=== PATIENT | female | born 1955 | race Caucasian/White ===

== ENCOUNTER 2018-06-03 09:38 | Emergency (ER) | payer OTHER, SELFPAY ==
[2018-06-03 09:40] VITALS: BP 163/93; PULSE 105; RESP 18; TEMP 36.1; O2SAT 97; BMI 33.4
--- NOTE | 2018-06-03 09:56 | RAD_ITS ---
STUDY: X-RAY CHEST REASON FOR EXAM: Female, 62 years old. Mid chest pain TECHNIQUE: Single AP portable view of the chest. COMPARISON: November 26, 2016 FINDINGS: The lungs are clear and expanded. There is no demonstrated pleural abnormality. Normal size heart. Normal mediastinum and cliff. Normal visualized pulmonary arteries. Normal visualized aortic arch and descending thoracic aorta. Normal visualized thoracic spine. Normal visualized ribs, clavicles, and shoulders. There is no demonstrated abnormality of the visualized soft tissue structures of the upper abdomen. RAD/Chest 1 View (Portable) IMPRESSION: Normal x-ray examination of the chest. Electronically Signed: Oliver Patel DO at 10:24 EST Tel , Service support ,
--- NOTE | 2018-06-03 09:56 | EKG12_ITS ---
Test Reason : AB PAIN Blood Pressure : / mmHG Vent. Rate : 093 BPM Atrial Rate : 093 BPM P-R Int : 150 ms QRS Dur : 090 ms QT Int : 358 ms P-R-T Axes : 047 -18 003 degrees QTc Int : 445 ms Normal sinus rhythm Voltage criteria for left ventricular hypertrophy Cannot rule out Septal infarct , age undetermined Abnormal ECG Confirmed by OLIVE MEYERS ([id number]), offline editor MIGUELINA MAYO ([id number]) on 06/06/2018 2:06:01 PM Referred By: LATHA Confirmed By:OLIVE MEYERS
[2018-06-03] MEDS: Aspirin 81 MG TAB.CHEW 324 MG PO (10:26)
[2018-06-03 10:28] LABS: Absolute Lymphocyte Count 1.16 X10^3/ul (0.83-4.51); Absolute Neutrophil Count 3.2 X10^3/uL (2.0-7.7); Basophil# 0.02 X10^3/uL; Basophil% 0.4 % (0-1); Eosinophil# 0.17 X10^3/uL; Eosinophils% 3.4 % (0-5); Hematocrit 38.8 % (37-47); Hemoglobin 12.8 g/dl (12.0-15.0); Lymphocyte # 1.16 X10^3/ul (4.0); Lymphocyte % 23.4 % (19-41); Mean Corpuscular Hgb 27.7 pg (27.0-32.0); Mean Platelet Vol. 9.3 fl (6.2-12.0); Monocyte# 0.39 X10^3/uL; Monocyte% 7.9 % (0-10); Neutrophil # 3.22 X10^3/uL (2.7-7.7); Neutrophil % 64.9 % (47-70); Platelet Count 296 K/mm3 (150-450); RBC Distribution Width CV 14.6 % (11.6-14.6); RBC Distribution Width SD 43.7 fl (35.1-43.9); Red Blood Count 4.62 M/mm3 (4.2-5.4)
[2018-06-03 10:31] LABS: POSITIVE COUNT NO; POSITIVE DIFFERENTIAL NO; POSITIVE MORPHOLOGY NO
[2018-06-03 10:42] LABS: ALB/GLOB Ratio 0.9 RATIO (0.9-2.4); AST(SGOT) 17 U/L (15-37); Alanine Aminotransfer ALT/SGPT 33 U/L (13-56); Albumin, Serum 3.5 g/dL (3.2-5.0); Alkaline Phosphatase 63 U/L (45-117); Anion Gap 7 (5-15); BUN 18 mg/dL (7-18); Calcium,Total 8.9 mg/dL (8.5-10.1); Chloride 104 mmol/L (98-107); Creatinine, Serum 0.69 mg/dL (0.55-1.02); EST Glomerular Filtration Rate 91 mL/min (>60); Est Glom Filt Rate - Afr Amer 110 mL/min (>60); Estimated Creatinine Clearance 76.07 ml/min; Globulin 3.9 g/dL (2.2-4.2); Glucose 117 mg/dL (74-106); Lipase 165 U/L (73-393); Potassium 3.7 mmol/L (3.5-5.1); Protein, Total 7.4 g/dL (6.4-8.2); Sodium Level 137 mmol/L (136-145)
[2018-06-03 12:06] VITALS: BP 138/89; PULSE 73; RESP 23; O2SAT 97
--- NOTE | 2018-06-03 12:10 | CT_ITS ---
STUDY: CTA CHEST REASON FOR EXAM: Female, 62 years old. Midsternal chest pain last evening RADIATION DOSAGE (If Supplied By Facility): CTDIvol = ( 15.60 ) mGy, DLP = ( 616.48 ) mGycm TECHNIQUE: The examination was performed with the intravenous administration of 100ML ml of Isovue 300 contrast material. Post-processing of the angiographic images was performed, with multiplanar reformation and 3D reconstruction. Individualized dose optimization techniques were used for this CT. COMPARISON: Chest x-ray today FINDINGS: Mildly enlarged and heterogeneous thyroid Normal enhancement of the main pulmonary artery and right and left pulmonary arteries. Normal enhancement of the bilateral peripheral pulmonary arteries. There is no demonstrated pulmonary embolism. Normal thoracic aorta and visualized great vessels. There is no demonstrated aortic dissection. Normal heart and pericardium. Normal mediastinum. Normal hilar regions. Normal visualized trachea and bronchi. The lungs are well expanded. Normal pulmonary parenchyma. Normal pleura. Normal chest wall structures. Normal osseous structures. Normal visualized upper abdomen. CT/CTA Chest W/WO Contrast IMPRESSION: Normal CTA chest examination, without a demonstrated pulmonary embolism or arterial dissection. Mildly enlarged and heterogeneous thyroid. Nonemergent thyroid ultrasound can be obtained to further evaluate for nodules. Electronically Signed: Oliver Patel DO at 12:50 EST Tel , Service support ,
--- NOTE | 2018-06-03 13:08 | ED.DCSUM_ITS ---
- ER Visit Summary Date of Service: 06/03/18 Chief Complaint: Chest pain History of Present Illness: The patient is a [address] Wilkins. She reports that she has chest pain that began yesterday morning at 1030. It is a sharp pain. Began while she was undergoing moderate exertion. However, it has been constant since that time. Is waxed and waned. It is not increased by anything including exertion or breathing. She is tried Rolaids and Coca-Cola without relief. She describes the pain as sharp and 8 out of 10 in severity. She reports that she has been nauseated and has a dry heaves. She denies any personal Family history of DVT. No recent travel. No ankle swelling or calf pain. No chest pain or change in dyspnea exertion in the past month. Physical Examination: Vitals: Stable. Afebrile. General: Well-nourished and well-developed. Head: Normocephalic atraumatic. Neck: Supple, no lymphadenopathy. No JVD. Nontender. Cardiovascular: Regular rate and rhythm. No murmurs. Respiratory: No respiratory distress. Clear to auscultation bilaterally. Abdominal: Soft, nontender, nondistended, normal bowel sounds. No guarding, rebound, or peritoneal signs. Back: Nontender. Extremities: Nontender, no edema. Skin: Normal color, no rash. Neurologic: Alert and oriented ?3. Cranial nerves II through XII are intact. Normal strength and sensation. Psych: Normal affect. Test Results: EKG is sinus at [address] changes. Son change from November 2016. Troponin is negative despite greater than 24 hours of constant pain. LFTs are normal. Lipase is normal. Chem-7 is more for glucose 117. CBC is normal. Clinical Impression(s) from Imaging Studies Chest X-Ray 06/03/18 09:56 IMPRESSION: Normal x-ray examination of the chest. Electronically Signed: Oliver Patel DO at 10:24 EST Tel , Service support , Chest CTA 06/03/18 12:10 IMPRESSION: Normal CTA chest examination, without a demonstrated pulmonary embolism or arterial dissection. Mildly enlarged and heterogeneous thyroid. Nonemergent thyroid ultrasound can be obtained to further evaluate for nodules. Electronically Signed: Oliver Patel DO at 12:50 EST Tel , Service support , Emergency Department Course and Treatment: Patient was treated with aspirin. She refused any pain or nausea medications. Treatment Plan: This time I do not have an explanation for the patient's pain. She would like to go home. She does not want anything for pain at home. She will be discharged instructions follow-up with primary care physician 1-2 days if not improving. Return to the emergency department for any worsening symptoms. Disposition: To home in improved and stable condition. Impression: 1. Chest pain, atypical. 2. BENNIE score of 1. This note was generated with [employer] dictation software. It may contain incorrect words, spelling, and punctuation that were not noted in review of the chart prior to signing ED Disposition - Plan for ED Patient: Disposition: Home or Assisted Living Chief Complaint: Abd Pain Instructions: ED Chest Pain Atypical Unkn Cause Referrals: Patricia Wilkins MD [Primary Care Provider] - 1-2 Days if not improving
[2018-06-03 13:25] VITALS: BP 127/86; PULSE 78; RESP 18; O2SAT 96
== END 2018-06-03 13:26 | disposition home or self-care (01) ==
LOC: ED 10:05
PROVIDERS: Emergency Provider Emergency Medicine; Family Provider Internal Medicine; PCP Internal Medicine
DX: R07.89 Other chest pain (principal); I10 Essential (primary) hypertension; E78.00 Pure hypercholesterolemia, unspecified; E03.9 Hypothyroidism, unspecified; Z79.82 Long term (current) use of aspirin; Z79.899 Other long term (current) drug therapy
CPT/HCPCS: 71045; 71275; 80053; 83690; 84484; 85025; 93005; 99285; J7040; Q9967

== ENCOUNTER 2020-11-19 05:27 | Day surgery (SDC) | payer MEDICARE, OTHER, SELFPAY ==
[2020-11-19] MEDS: Midazolam 5 MG/ML Syringe (06:35)
[2020-11-19] MEDS: DiphenhydrAMINE 50 MG/ML Syringe (06:52)
--- NOTE | 2020-11-19 07:13 | OP.COLON_ITS ---
Patient Name: Ana Mejia Procedure Date: 11/19/2020 6:10 AM Date of : 1955 Age: 65 Procedure: Colonoscopy Indications: Screening for colorectal malignant neoplasm Providers: Devin Montgomery MD Referring MD: Patricia Wilkins Medicines: Midazolam 5 mg IV, Meperidine 100 mg IV, Diphenhydramine 12.5 mg IV Patient Profile: Last Colonoscopy: more than 10 years ago. Complications: No immediate complications. Procedure: Pre-Anesthesia Assessment: - Prior to the procedure, a History and Physical was performed, and patient medications and allergies were reviewed. The patient's tolerance of previous anesthesia was also reviewed. The risks and benefits of the procedure and the sedation options and risks were discussed with the patient. All questions were answered, and informed consent was obtained. Prior Anticoagulants: The patient has taken no previous anticoagulant or antiplatelet agents. ASA Grade Assessment: II - A patient with mild systemic disease. After reviewing the risks and benefits, the patient was deemed in satisfactory condition to undergo the procedure. After I obtained informed consent, the scope was passed under direct vision. Throughout the procedure, the patient's blood pressure, pulse, and oxygen saturations were monitored continuously. The colonoscope was introduced through the anus and advanced to the cecum, identified by appendiceal orifice and ileocecal valve. The colonoscopy was technically difficult and complex due to a tortuous colon. Successful completion of the procedure was aided by increasing the dose of sedation medication. The patient tolerated the procedure well. The quality of the bowel preparation was adequate to identify polyps. The ileocecal valve and the appendiceal orifice were photographed. Moderate Sedation: Moderate (conscious) sedation was personally administered by the endoscopist. The following parameters were monitored: oxygen saturation, heart rate, blood pressure, and response to care. Total physician intraservice time was 20 minutes. Scope In: 6:38:40 AM Scope Withdrawal Time 0 hours 9 minutes 29 seconds Scope Out: 7:07:39 AM Total Procedure Duration Time 0 hours 28 minutes 59 seconds Findings: Hemorrhoids were found on perianal exam. Scattered diverticula were found in the sigmoid colon. The colon (entire examined portion) was significantly tortuous. Advancing the scope required changing the patient to a supine position and using manual pressure. Impression: - Hemorrhoids found on perianal exam. - Diverticulosis in the sigmoid colon. - Tortuous colon. - No specimens collected. Recommendation: - Discharge patient to home. - Resume previous diet. - Continue present medications. - Repeat colonoscopy in 10 years for screening purposes. Procedure Code(s): --- Professional --- 82255, Colonoscopy, flexible; diagnostic, including collection of specimen(s) by brushing or washing, when performed (separate procedure) 78503, 59, Moderate sedation services provided by the same physician or other qualified health acute care physical therapist performing the diagnostic or therapeutic service that the sedation supports, requiring the presence of an independent trained observer to assist in the monitoring of the patient's level of consciousness and physiological status; initial 15 minutes of intraservice time, patient age 5 years or older Diagnosis Code(s): --- Professional --- Z12.11, Encounter for screening for malignant neoplasm of colon K64.9, Unspecified hemorrhoids K57.30, Diverticulosis of large intestine without perforation or abscess without bleeding Q43.8, Other specified congenital malformations of intestine CPT copyright 2017 [employer]. All rights reserved. The codes documented in this report are preliminary and upon electrical foreman review may be revised to meet current compliance requirements. Devni Montgomery MD 11/19/2020 7:12:55 AM This report has been signed electronically. Number of Addenda: 0 Note Initiated On: 11/19/2020 6:10 AM
--- NOTE | 2020-11-19 07:13 | OP.CCLET_ITS ---
11/19/2020 Patricia Wilkins [address] [place] [address] Re : Colonoscopy procedure for Ana Mejia Dear Dr. Wilkins This procedure was performed on Thursday, November 19, 2020. My impressions and recommendations are as follows: Impressions : - Hemorrhoids found on perianal exam. - Diverticulosis in the sigmoid colon. - Tortuous colon. - No specimens collected. Recommendations : - Discharge patient to home. - Resume previous diet. - Continue present medications. - Repeat colonoscopy in 10 years for screening purposes. My findings are described in the full procedure note, which is enclosed. If I can be of further assistance, please feel free to contact me at Doctor phone number(s): Work: . Sincerely, Devin Montgomery MD 11/19/2020 7:12:55 AM This report has been signed electronically.
[2020-11-19 12:47] VITALS: BP 101/79; BP 109/72; BP 111/82; BP 118/103; BP 119/87; BP 129/89; BP 133/96; O2SAT 100; O2SAT 96; O2SAT 97; O2SAT 98; O2SAT 99
== END 2020-11-19 08:26 | disposition home or self-care (01) ==
LOC: AC 07:29 → EN 07:29
PROVIDERS: PCP Internal Medicine; Referring Provider Internal Medicine; Visit Provider Surgery
PROC: 0DJD8ZZ Inspection of Lower Intestinal Tract, Via Natural or Artificial Opening Endoscopic (ICD-10-PCS; CPT 45378; principal; 2020-11-19 06:25)
DX: Z12.11 Encounter for screening for malignant neoplasm of colon (principal); K57.30 Diverticulosis of large intestine without perforation or abscess without bleeding; Q43.8 Other specified congenital malformations of intestine; K64.9 Unspecified hemorrhoids; Z79.82 Long term (current) use of aspirin
CPT/HCPCS: G0121; 99152; 99153; J7120

== ENCOUNTER 2021-03-09 15:05 | Emergency (ER) | payer MEDICARE, OTHER, SELFPAY ==
[2021-03-09 15:07] VITALS: BP 120/92; PULSE 112; RESP 18; TEMP 35.9; O2SAT 97; BMI 34.7
--- NOTE | 2021-03-09 15:41 | CT_ITS ---
HISTORY: UTI, history of unilateral kidney EXAMINATION: CT Abdomen And Pelvis W/ Contrast Injection TECHNIQUE: Helically acquired images were obtained of the abdomen and pelvis following IV contrast. A radiation dose optimization technique was used for this scan. IV Contrast dosage and agent: 75mL Isovue-370 Oral contrast: None. COMPARISON: 11/26/16 FINDINGS: LOWER CHEST: Mild bibasilar dependent changes. No cardiomegaly or pericardial effusion. LIVER: Stable cyst left lobe. No concerning focal mass. GALLBLADDER AND BILIARY TREE: No calcified gallstones. No gallbladder distension or wall edema. No intra- or extrahepatic biliary ductal dilation. PANCREAS: No focal cystic or solid mass. SPLEEN: Normal size without focal cystic or solid mass. ADRENAL GLANDS: No nodules. KIDNEYS AND URETERS: Absent left kidney. No right nephrolithiasis or hydronephrosis. PERITONEUM: No ascites or free air. BOWEL: Normal appendix. No stomach or bowel distension. No focal inflammatory bowel wall changes. LYMPH NODES: No enlarged mesenteric or retroperitoneal lymph nodes. VESSELS: Aorta is non-dilated. URINARY BLADDER: Unremarkable. REPRODUCTIVE ORGANS: No pelvic masses. ABDOMINAL WALL: No discrete abdominal or pelvic wall hernia. BONES: No acute or aggressive abnormality. CT/Abdomen/Pelvis W IV Cont ONLY IMPRESSION: No acute findings in the abdomen or pelvis. No significant interval change from prior study. Individualized dose optimization techniques were used for this CT. at 1735 Reported and signed by: Mykel Zaman MD Electronically Signed: Mykel Zaman MD at 17:34 EDT Tel , Service support ,
[2021-03-09 16:14] LABS: Absolute Neutrophil Count 3.7 X10^3/uL (2.0-7.7); Basophil# 0.03 X10^3/uL; Basophil% 0.5 % (0-1); Eosinophil# 0.15 X10^3/uL; Eosinophils% 2.6 % (0-5); Hematocrit 46.1 % (37-47); Hemoglobin 15.6 g/dL (12.0-15.0); Mean Corp Hgb Conc 33.8 g/dL (32-36); Mean Corpuscular Hgb 30.1 pg (27.0-32.0); Mean Platelet Vol. 9.7 fl (6.2-12.0); Monocyte# 0.52 X10^3/uL; Monocyte% 8.9 % (0-10); NRBC Flagged by Analyzer 0 % (0-5); Neutrophil # 3.72 X10^3/uL (2.7-7.7); Neutrophil % 63.7 % (47-70); Platelet Count 256 K/mm3 (150-450); RBC Distribution Width CV 12.1 % (11.6-14.6); RBC Distribution Width SD 39.8 fl (35.1-43.9); Red Blood Count 5.18 M/mm3 (4.2-5.4); White Blood Count 5.8 K/mm3 (4.4-11.0)
[2021-03-09] MEDS: 0.9% Normal Saline 1,000 ML 999 ML IV (16:26)
[2021-03-09] MEDS: Ceftriaxone 1 GM/50 ML BAG IV (16:26)
[2021-03-09 16:32] LABS: Anion Gap 9 (5-15); BUN 15 mg/dL (7-18); BUN/Creat Ratio 16.3 RATIO (10-20); Calcium,Total 9.3 mg/dL (8.5-10.1); Chloride 102 mmol/L (98-107); Creatinine, Serum 0.92 mg/dL (0.55-1.02); EST Glomerular Filtration Rate 65 mL/min (>60); Est Glom Filt Rate - Afr Amer 78 mL/min (>60); Estimated Creatinine Clearance 54.86 ml/min; Glucose 105 mg/dL (74-106); Potassium 3.2 mmol/L (3.5-5.1); Sodium Level 136 mmol/L (136-145)
[2021-03-09 16:35] LABS: Lactic Acid 1.7 mmol/L (0.4-1.9)
[2021-03-09 17:32] LABS: Bacteria 0 SEEN /hpf (None Seen); Mucous, Urine 0 SEEN /hpf (<or=2+); Red Blood Cells-Urine 0 SEEN /hpf (0-5); Squamous Epithelial Cells - UA 0 SEEN /hpf (5-10); White Blood Cells 0 SEEN /hpf (0-5)
[2021-03-09 17:33] LABS: Color, Urine Yellow (Yellow); Glucose, Dipstick Normal (Normal); Ketone-Dipstick Negative (Negative); Leukocyte Esterase-Dipstick Negative /ul (Negative); Nitrite-Dipstick Negative (Negative); Occult Blood-Urine Negative /ul (Negative); Protein-Dipstick Negative (Negative); Specific Gravity, Urine 1.005 (1.002-1.030); Urine Bilirubin Dipstick Negative (Negative); Urine Clarity Clear (Clear); Urine Urobilinogen Normal (Normal)
[2021-03-09 18:31] VITALS: BP 137/62; PULSE 84; RESP 16; O2SAT 98
--- NOTE | 2021-03-09 18:44 | EDS_ITS ---
HPI History of Present Illness Chief Complaint: Flank Pain Narrative Narrative: Patient is a 65-year-old female who states that she has been having recurrent right-sided flank/rib pain. She states they have not been able to find a cause for her pain and therefore went to a GI doctor. There she had a urine sample obtained which did not show any infection but culture did grow out a bacteria. Patient states she has been on Levaquin for 2 days but has not had any symptom improvement and therefore presents for reevaluation. PFSH PFS Home Medications aspirin 81 mg PO MOWEFR 02/24/14 [History Last Taken 11/13/20] bupropion HCl [Wellbutrin] 100 mg PO DAILY 02/24/14 [History Last Taken 11/26/16] duloxetine 90 mg PO DAILY 02/24/14 [History Last Taken 11/26/16] hydrochlorothiazide 25 mg PO DAILY 02/24/14 [History Last Taken 11/26/16] levomefolate-algal oil [Deplin (algal oil)] 15 mg PO DAILY 02/24/14 [History Last Taken 11/26/16] levothyroxine 50 mcg PO DAILY 02/24/14 [History Last Taken 11/26/16] dextroamphetamine-amphetamine [Adderall 10 mg Tablet] 10 mg PO DAILY 11/26/16 [History Last Taken 11/26/16] pantoprazole 40 mg PO DAILY 11/26/16 [History Last Taken 11/26/16] ferrous sulfate 325 mg PO DAILY 11/15/20 [History Last Taken 11/13/20] losartan 50 mg PO DAILY 11/15/20 [History Last Taken Unknown] multivitamin with minerals 1 each PO DAILY 11/15/20 [History Last Taken Unknown] omega-3 fatty acids-fish oil 1 each PO DAILY 11/15/20 [History Last Taken 11/13/20] oxybutynin 1 each TD SUTH 11/15/20 [History Last Taken Unknown] Allergy/AdvReac Type Severity Reaction Status Date / Time Sulfa (Sulfonamide Allergy Other Verified 03/09/21 15:06 Antibiotics) zoster vaccine live Allergy Other Verified 03/09/21 15:06 [From Zostavax (PF)] Social History Smoking Status: Never smoker ROS ROS ED Constitutional Constitutional ED: Denies chills or fever(s) ENT ENT ED: Denies sore throat Cardiovascular Cardiovascular: Denies chest pain or palpitations Respiratory/Chest Respiratory/Chest: Denies cough or dyspnea Gastrointestinal Gastrointestinal: Reports nausea; Denies abdominal pain or vomiting Genitourinary Genitourinary ED: Denies dysuria, hematuria or urinary frequency Musculoskeletal Musculoskeletal: Reports back pain Integumentary Denies rash Neurologic Neurologic: Denies headache(s) EXAM Physical Exam Const Vital Signs: 03/09/21 15:07 03/09/21 18:31 Temperature 96.7 F L Temperature Source Temporal Pulse Rate 112 H 84 Respiratory Rate 18 16 Blood Pressure 120/92 H 137/62 H Blood Pressure Mean 101 87 Pulse Ox 97 98 Oxygen Delivery Method Room Air Room Air Positive well nourished and well developed General Appearance ED: well developed Eyes PERRL and EOMs intact bilaterally Neck supple Chest Wall Chest Narrative: No bony deformity or crepitance of the chest wall. There is reproducible pain to palpation along the right posterior lateral portion of the rib cage along the rib regions 4-7. No overlying soft tissue changes to suggest trauma or infection Resp normal respiratory effort and clear to auscultation bilaterally Cardio regular rate, regular rhythm and no murmurs GI GI Narrative: Abdomen is soft nontender nondistended with normoactive bowel sounds. No voluntary guarding or rigidity no pulsatile mass Back/Spine Back/Spine Narrative: Pain with palpation along the right flank/posterior lateral portion of the rib cage as documented above Extremity normal to inspection Extremity Narrative: No edema no pitting edema negative Homans' sign bilaterally Neuro oriented x3 and CN's II-XII intact bilaterally Sensorium / Orientation: alert Psych mental status grossly normal Skin no rashes or lesions noted and no wounds MDM MDM MDM Narrative Medical decision making narrative: Patient presented to the ER in no acute distress and was afebrile. Her pain was not quite over top of the kidney but with concern she could have pyelonephritis I did elect to perform basic laboratory studies and CT scan. Patient's lab work-up revealed no clinically significant findings in her urine showed no sign of infection. CT scan also revealed no acute inflammatory pathology or kidney stone as a cause of her symptoms. Therefore at this time with overall negative work-up and the fact that it shows that the Levaquin seems to be treating the urine I do not feel there is need for further work-up or admission and she is safe for discharge with outpatient follow-up. Lab Data Labs: Laboratory Results - last 24 hr 03/09/21 03/09/21 03/09/21 15:55 15:55 15:55 WBC 5.8 RBC 5.18 Hgb 15.6 H Hct 46.1 MCV 89.0 MCH 30.1 MCHC 33.8 RDW Std Deviation 39.8 RDW Coeff of [place] 12.1 Plt Count 256 MPV 9.7 Immature Gran % (Auto) 0.300 Neut % (Auto) 63.7 Lymph % (Auto) 24.0 [place] % (Auto) 8.9 Eos % (Auto) 2.6 Baso % (Auto) 0.5 Absolute Neuts (auto) 3.7 Absolute Lymphs (auto) 1.40 Nucleated RBC % 0 Sodium 136 Potassium 3.2 L Chloride 102 Carbon Dioxide 25.0 Anion Gap 9 BUN 15 Creatinine 0.92 Estim Creat Clear Calc 54.86 Est GFR (MDRD) Af Amer 78 Est GFR (MDRD) Non-Af 65 BUN/Creatinine Ratio 16.3 Glucose 105 Lactic Acid 1.7 Calcium 9.3 Urine Color Urine Clarity Urine pH Ur Specific [place] Urine Protein Urine Glucose (UA) Urine Ketones Urine Occult Blood Urine Nitrite Urine Bilirubin Urine Urobilinogen Ur Leukocyte Esterase Urine RBC Urine WBC Ur Squamous Epith Cells Urine Bacteria Urine Mucus 03/09/21 17:27 WBC RBC Hgb Hct MCV MCH MCHC RDW Std Deviation RDW Coeff of [place] Plt Count MPV Immature Gran % (Auto) Neut % (Auto) Lymph % (Auto) [place] % (Auto) Eos % (Auto) Baso % (Auto) Absolute Neuts (auto) Absolute Lymphs (auto) Nucleated RBC % Sodium Potassium Chloride Carbon Dioxide Anion Gap BUN Creatinine Estim Creat Clear Calc Est GFR (MDRD) Af Amer Est GFR (MDRD) Non-Af BUN/Creatinine Ratio Glucose Lactic Acid Calcium Urine Color Yellow Urine Clarity Clear Urine pH 6.0 Ur Specific [place] 1.005 Urine Protein Negative Urine Glucose (UA) Normal Urine Ketones Negative Urine Occult Blood Negative Urine Nitrite Negative Urine Bilirubin Negative Urine Urobilinogen Normal Ur Leukocyte Esterase Negative Urine RBC 0 SEEN Urine WBC 0 SEEN Ur Squamous Epith Cells 0 SEEN Urine Bacteria 0 SEEN Urine Mucus 0 SEEN Radiography Diagnostic Testing: Radiology Impression Abdomen/Pelvis CT 03/09/21 15:41 IMPRESSION: No acute findings in the abdomen or pelvis. No significant interval change from prior study. Individualized dose optimization techniques were used for this CT. at 1735 Reported and signed by: Mykel Zaman MD Electronically Signed: Mykel Zaman MD at 17:34 EDT Tel , Service support , Discharge Plan Triage Chief Complaint: Flank Pain ED Provider: Christiano Lopez Dx/Rx/DC Orders Clinical Impression: Acute right flank pain Instructions: ED Pyelonephritis, Female (Adult) Prescriptions: No Action levothyroxine 50 MCG tablet 50 mcg PO DAILY RF: 0 bupropion HCl [Wellbutrin] 75 MG tablet 100 mg PO DAILY RF: 0 aspirin 81 MG tablet,chewable 81 mg PO MOWEFR RF: 0 hydrochlorothiazide 25 MG tablet 25 mg PO DAILY RF: 0 duloxetine 60 MG capsule 90 mg PO DAILY RF: 0 levomefolate-algal oil [Deplin (algal oil)] 7.5 MG tablet 15 mg PO DAILY RF: 0 dextroamphetamine-amphetamine [Adderall] 10 MG tablet 10 mg PO DAILY RF: 0 pantoprazole 40 MG tablet 40 mg PO DAILY RF: 0 losartan 50 MG tablet 50 mg PO DAILY RF: 0 ferrous sulfate 325 MG tablet 325 mg PO DAILY RF: 0 oxybutynin 1 EACH patch 4 day 1 each TD SUTH RF: 0 multivitamin with minerals 1 EACH tablet 1 each PO DAILY RF: 0 omega-3 fatty acids-fish oil 1 EACH capsule 1 each PO DAILY RF: 0 Primary Care Provider: Patricia Wilkins Referrals: Patricia Wilkins MD [Primary Care Provider] - 3-5 Days if not improving Disposition Disposition: Home, Self Care
== END 2021-03-09 19:19 | disposition home or self-care (01) ==
PROVIDERS: Emergency Provider Emergency Medicine; PCP Internal Medicine
DX: R10.9 Unspecified abdominal pain (principal); Z79.82 Long term (current) use of aspirin
CPT/HCPCS: 74177; 80048; 81001; 83605; 85025; 96365; 99283; J7030; Q9967; A4216

== ENCOUNTER 2021-04-04 08:41 | Day surgery (SDC) | payer MEDICARE, OTHER, SELFPAY ==
[2021-04-04] VITALS (7 sets, daily range): BP systolic 125–158; BP diastolic 80–94; PULSE 66–78; RESP 16–18; TEMP 36.2–36.7; O2SAT 95–100; BMI 34.4
[2021-04-04] MEDS: Lactated Ringers 1,000 ML 100 ML IV (08:55)
--- NOTE | 2021-04-04 09:45 | IMM_PTH ---
PATIENT: SAMIR BAUTISTA LOC: EN U#:[id number] AGE/SX: 65/F ROOM: RE04/04/[address]: Dr. Devin Montgomery MD : 1955 BED: DIS: 04/04/2021 SPEC #: [id number] RECD: 04/07/21 14:11 STATUS: LAURA REQ #: [id number] JANET: 04/04/21 09:[address]: Devin Montgomery DEPT: IMMUNOHISTOCHEMISTRY RECD BY: Frances Milan ENTERED: 04/07/21 14:12 SP TYPE: IMMUNO OTHR DR: Dr. Patricia Wilkins MD Tissues: A - Stomach, NOS Procedures: H Pylori (initial) PHYSICIAN & INSTITUTION [facility] [id number] SPECIMEN INFORMATION: Tissue Source: A ? Antrum biopsy Clinical Info: Acute right flank pain Specimen Number: [id number] CPT code: 79322 METHODOLOGY: Deparaffinized sections of prefer/formalin-fixed tissue or PAP/DQ stained slides are incubated with monoclonal/polyclonal antibodies/oligonucleotide probes. Localization is made via biotin free immunoperoxidase method. Appropriate controls are performed and reacted as expected. Results on target cell population are indicated in the following table: RESULTS: ANTIBODY / CLONE RESULT Block A H Pylori (polyclonal) negative These tests were developed and their performance characteristics determined by [facility]. They may not have been cleared or approved by the U.[place]. Food and Drug Administration. The FDA has determined that such clearance or approval is not necessary. INTERPRETATION: A. Antrum biopsy: Negative for Helicobacter pylori organisms. AM:nayana 04/08/2021
--- NOTE | 2021-04-04 09:45 | EGD_PTH ---
PATIENT: SAMIR BAUTISTA LOC: EN U#:[id number] AGE/SX: 65/F ROOM: RE04/04/[address]: Dr. Devin Montgomery MD : 1955 BED: DIS: 04/04/2021 SPEC #: [id number] RECD: 04/04/21 10:59 STATUS: LAURA MARI #: [id number] JANET: 04/04/21 09:[address]: Devin Montgomery DEPT: SURGICAL PATHOLOGY RECD BY: Cecilia Andrew ENTERED: 04/04/21 11:27 SP TYPE: EGD [facility] DR: Dr. Patricia Wilkins MD Tissues: A - Duodenum, NOS B - Gastric mucous membrane C - Esophagus, NOS D - Esophagus, NOS Procedures: Surgery Specimen Level IV HEADER OPER[place] [place] DIAGNOSIS: Acute right flank pain TISSUE SUBMITTED: A. Antrum biopsy for H. pylori and path, B. Gastric polyp biopsy, C. Distal esophagus biopsy, D. Mid esophagus biopsy MICROSCOPIC DIAGNOSIS A. Gastric antrum, biopsy: Mild chronic inflammation. See comment. B. Gastric polyp, biopsy: Fundic gland polyp. C. Distal esophagus, biopsy: No pathologic change. No evidence of inflammation. D. Mid esophagus, biopsy: No pathologic change. No evidence of inflammation. AM:nayana 04/07/2021 COMMENT A. The results of immunohistochemistry for Helicobacter pylori will be reported separately ([id number]). MICROSCOPIC DESCRIPTION Slides are reviewed. GROSS DESCRIPTION A - Received in fixative is one container labeled with the patient's name and designated antrum biopsy. The specimen consists of two irregular fragments of light agudelo soft tissue that in aggregate measure 0.2 x 0.2 x 0.1 cm. The specimen is totally submitted in one cassette. B - Received in fixative is one container labeled with the patient's name and designated gastric polyp biopsy. The specimen consists of one irregular fragment of light agudelo soft tissue that measures 0.5 x 0.3 x 0.1 cm. The specimen is totally submitted in one cassette. C - Received in fixative is one container labeled with the patient's name and designated distal esophagus biopsy. The specimen consists of one irregular fragment of light agudelo soft tissue that measures 0.5 x 0.2 x 0.1 cm. The specimen is totally submitted in one cassette. D - Received in fixative is one container labeled with the patient's name and designated mid esophagus biopsy. The specimen consists of one irregular fragment of light agudelo soft tissue that measures 0.7 x 0.3 x <0.1 cm. The specimen is totally submitted in one cassette. / AM:nayana 04/04/21 TC:3 CPT: 72321 x4
--- NOTE | 2021-04-04 09:47 | HP.PCM_ITS ---
History and Physical Date of Admission: 04/04/[address] Devin Montgomery MD on 03/26/21 at 1250 Intake Chief Complaint: abn hida Allergies Sulfa (Sulfonamide Antibiotics) Allergy (Verified 03/19/21 15:39) Other zoster vaccine live [From Zostavax (PF)] Allergy (Verified 03/19/21 15:39) Other Medications aspirin 81 mg PO MOWEFR 02/24/14 [History Confirmed 03/19/21] bupropion HCl [Wellbutrin] 100 mg PO DAILY 02/24/14 [History Confirmed 03/19/21] duloxetine 90 mg PO DAILY 02/24/14 [History Confirmed 03/19/21] hydrochlorothiazide 25 mg PO DAILY 02/24/14 [History Confirmed 03/19/21] levothyroxine 50 mcg PO DAILY 02/24/14 [History Confirmed 03/19/21] dextroamphetamine-amphetamine [Adderall 10 mg Tablet] 10 mg PO DAILY 11/26/16 [History Confirmed 03/19/21] pantoprazole 40 mg PO DAILY 11/26/16 [History Confirmed 03/19/21] ferrous sulfate 325 mg PO DAILY 11/15/20 [History Confirmed 03/19/21] losartan 50 mg PO DAILY 11/15/20 [History Confirmed 03/19/21] multivitamin with minerals 1 each PO DAILY 11/15/20 [History Confirmed 03/19/21] omega-3 fatty acids-fish oil 1 each PO DAILY 11/15/20 [History Confirmed 03/19/21] alpha lipoic acid 200 mg capsule 200 mg PO DAILY 03/19/21 [History Confirmed 03/19/21] cholecalciferol (vitamin D3) 50 mcg (2,000 unit) capsule 50 mcg PO DAILY 03/19/21 [History Confirmed 03/19/21] mecobalamin-levomefolate calcium-pyridoxal phos 3 mg-35 mg-2 mg tablet 1 tab PO ONCE tab 03/19/21 [History Confirmed 03/19/21] Assessment and Plan Assessment and Plan (1) Acute right flank pain: Status: Acute Comment: I now have results of a CT scan of the abdomen pelvis without contrast that was performed on November 26, 2016 at the [facility]. This demonstrated small focus of decreased attenuation in the left lobe of the liver about 9.5 mm too small to characterize. The liver was otherwise normal. There were multiple gallstones identified. There is no acute intra-abdominal disease. Unilateral left-sided renal agenesis. Large amount of stool and fecal stasis. A right intramuscular abdominal wall lipoma. This therefore supports the patient's diagnosis of previously known cholelithiasis. Devin Montgomery M.D., F.A.C.S. March 26, 2021 I have been notified that the patient's repeat urine culture is no growth. The patient is feeling slightly better. She is scheduled to have a esophagogastroduodenoscopy on April 04, 2021. Consideration for laparoscopic cholecystectomy for biliary dyskinesia dyskinesia Plan: I now have records from March 26, 2021. Her repeat urine culture was negative. She is tentatively slated to have a upper endoscopy on April 04, 2021. She has a abnormal hepatobiliary scan. We will consider possible future laparoscopic cholecystectomy. Devin Montgomery M.D., F.A.C.S. 03/26/21 1250<Electronically signed by Devin Montgomery MD>Date Devin Montgomery MD cc: AGUILA Martinez; Dr. Patricia Wilkins MD ~*Signed ADDENDUM by Dr. Devin Montgomery MD on 03/21/21 at 1525 Intake Chief Complaint: abn hida Allergies Sulfa (Sulfonamide Antibiotics) Allergy (Verified 03/19/21 15:39) Other zoster vaccine live [From Zostavax (PF)] Allergy (Verified 03/19/21 15:39) Other Medications aspirin 81 mg PO MOWEFR 02/24/14 [History Confirmed 03/19/21] bupropion HCl [Wellbutrin] 100 mg PO DAILY 02/24/14 [History Confirmed 03/19/21] duloxetine 90 mg PO DAILY 02/24/14 [History Confirmed 03/19/21] hydrochlorothiazide 25 mg PO DAILY 02/24/14 [History Confirmed 03/19/21] levothyroxine 50 mcg PO DAILY 02/24/14 [History Confirmed 03/19/21] dextroamphetamine-amphetamine [Adderall 10 mg Tablet] 10 mg PO DAILY 11/26/16 [History Confirmed 03/19/21] pantoprazole 40 mg PO DAILY 11/26/16 [History Confirmed 03/19/21] ferrous sulfate 325 mg PO DAILY 11/15/20 [History Confirmed 03/19/21] losartan 50 mg PO DAILY 11/15/20 [History Confirmed 03/19/21] multivitamin with minerals 1 each PO DAILY 11/15/20 [History Confirmed 03/19/21] omega-3 fatty acids-fish oil 1 each PO DAILY 11/15/20 [History Confirmed 03/19/21] alpha lipoic acid 200 mg capsule 200 mg PO DAILY 03/19/21 [History Confirmed 03/19/21] cholecalciferol (vitamin D3) 50 mcg (2,000 unit) capsule 50 mcg PO DAILY 03/19/21 [History Confirmed 03/19/21] mecobalamin-levomefolate calcium-pyridoxal phos 3 mg-35 mg-2 mg tablet 1 tab PO ONCE tab 03/19/21 [History Confirmed 03/19/21] Assessment and Plan Assessment and Plan (1) Acute right flank pain: Status: Acute Comment: I now have results of a CT scan of the abdomen pelvis without contrast that was performed on November 26, 2016 at the [facility]. This demonstrated small focus of decreased attenuation in the left lobe of the liver about 9.5 mm too small to characterize. The liver was otherwise normal. There were multiple gallstones identified. There is no acute intra-abdominal disease. Unilateral left-sided renal agenesis. Large amount of stool and fecal stasis. A right intramuscular abdominal wall lipoma. This therefore supports the patient's diagnosis of previously known cholelithiasis. Devin Montgomery M.D., F.A.C.S. 03/21/21 1525<Electronically signed by Devin Montgomery MD>Date Devin Montgomery MD cc: AGUILA Martinez; Dr. Patricia Wilkins MD ~*Signed Intake Vital Signs 03/19/21 15:38 Height 5 ft 5 in Weight: 210 lb 8 oz BMI 35.0 BP 122/79 H Blood Pressure Location Rt brachial Position Sitting Respiration 18 Pulse 101 H Pulse Source NIBP Temp 97.9 F Temp Source Temporal Pulse Oximetry (%) 98 Oxygen Delivery Method room air Intake Visit Reasons: GALLBLADDER Chief Complaint: abn hida Java Consultant Required: No Is patient in pain?: No Allergies Sulfa (Sulfonamide Antibiotics) Allergy (Verified 03/19/21 15:39) Other zoster vaccine live [From Zostavax (PF)] Allergy (Verified 03/19/21 15:39) Other Medications aspirin 81 mg PO MOWEFR 02/24/14 [History Confirmed 03/19/21] bupropion HCl [Wellbutrin] 100 mg PO DAILY 02/24/14 [History Confirmed 03/19/21] duloxetine 90 mg PO DAILY 02/24/14 [History Confirmed 03/19/21] hydrochlorothiazide 25 mg PO DAILY 02/24/14 [History Confirmed 03/19/21] levothyroxine 50 mcg PO DAILY 02/24/14 [History Confirmed 03/19/21] dextroamphetamine-amphetamine [Adderall 10 mg Tablet] 10 mg PO DAILY 11/26/16 [History Confirmed 03/19/21] pantoprazole 40 mg PO DAILY 11/26/16 [History Confirmed 03/19/21] ferrous sulfate 325 mg PO DAILY 11/15/20 [History Confirmed 03/19/21] losartan 50 mg PO DAILY 11/15/20 [History Confirmed 03/19/21] multivitamin with minerals 1 each PO DAILY 11/15/20 [History Confirmed 03/19/21] omega-3 fatty acids-fish oil 1 each PO DAILY 11/15/20 [History Confirmed 03/19/21] alpha lipoic acid 200 mg capsule 200 mg PO DAILY 03/19/21 [History Confirmed 03/19/21] cholecalciferol (vitamin D3) 50 mcg (2,000 unit) capsule 50 mcg PO DAILY 03/19/21 [History Confirmed 03/19/21] mecobalamin-levomefolate calcium-pyridoxal phos 3 mg-35 mg-2 mg tablet 1 tab PO ONCE tab 03/19/21 [History Confirmed 03/19/21] Is last menstrual period known: No Post menopausal: Yes Patient : No [facility] Medical History (Updated 03/19/21 @ 15:33 by Ivy Apple) Biliary dyskinesia GERD (gastroesophageal reflux disease) Surgical History (Updated 03/19/21 @ 15:37 by Ivy Apple) History of 2 sections History of colonoscopy (~10/2020) History of dilatation and curettage History of laparoscopy History of left inguinal hernia repair History of tonsillectomy and adenoidectomy Family History (Updated 03/19/21 @ 15:38 by Ivy Apple) Father Diabetes Heart disease Cancer skin Hypertension CVA (cerebral vascular accident) Mother Hypertension Brother Cancer lymphoma Social History Smoking Status: Never smoker HPI HPI HPI: SAMIR BAUTISTA, is a 65 F who presents to the office today for surgical consultation regarding abdominal pain. The patient is referred by Yanira Martinez CNP and Dr. Patricia Wilkins and a written copy of my surgical consult and recommendations will return to her. The patient had a screening colonoscopy November 19, 2020 per myself and some diverticulosis of the sigmoid and tortuous colon noted no acute findings. She has been taking a supplement to assist with constipation. By report she is been having difficulties with loss of her nephew and loss of a sister. Laboratory of March 09, 2021 demonstrates a white blood cell count of 5.8 with a hemoglobin 15.6 and hematocrit 46.1 and a platelet count of 256,000. Potassium was low at 3.2. Liver function tests were not obtained. Urinalysis was normal. At the [facility] on March 13 a hepatobiliary scan was obtained. Cystic duct common bile duct patent. There was felt to be an ejec tion fraction of less than 10%. A urine culture summary was provided March 06, 2021 showing Klebsiella pneumonia Plain films of the abdomen March 03, 2021 showed mildly distended large bowel loops overlying the right upper quadrant moderate amount of stool gas large bowel loops A previous right upper quadrant ultrasound February 03, 2021 performed in the [facility] showed normal right upper quadrant. Fatty infiltration of the liver. Stable left hepatic cyst. Common bile duct was 0.5 cm. Gallbladder was not distended there was no cholelithiasis no wall thickening no edema no pericholecystic fluid and no Gutierrez sign. The right kidney had no hydronephrosis. There was a discussion at this testing was obtained because of abnormal liver function tests. As of January 02, 2021 ALT was 42 with high normal being 38 Now it is of note that the patient states that in the past she had an imaging procedure performed notifying her that she had gallstones. She does not recall the type of imaging or date. Since the year 1999 she has been on proton pump inhibitors. She is currently on pantoprazole. She can have severe retrosternal pain. She has undergone cardiac catheterization without clinically significant disease. Her current presenting concern is a persistent right flank pain. She does not correlate an aggravation with food. 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 Her most recent urinary tract infection was asymptomatic. She was placed on appropriate antibiotics with improvement in the right flank pain but not complete resolution. She is requesting that a posttreatment UA be obtained. ROS General General: Yes fatigue; No weight change, appetite, colon cancer, breast cancer or weakness HEENT HEENT: No difficulty swallowing, eye injury, eye surgery, swollen glands or hoarseness Endo Endocrine: Yes thyroid disease; No diabetes mellitus, thyroid cancer, Hair loss, heat intolerance or cold intolerance Musc Musculoskeletal: No back problems, arthritis, rheumatoid arthritis, gout or joint pain Cardio Cardiovascular: Yes high blood pressure; No murmur, pacemaker, heart disease, atrial fibrillation, heart attack, heart stent, palpitations, shortness of breat with exertion or chest pain Psych Psychiatric: Yes depression and anxiety; No hearing voices Resp Respiratory: No shortness of breath, Yes sleep apnea, No cough, No COPD, No asthma, No emphysema and No wheezing Gastro Gastrointestinal: No abdominal pain, No nausea or vomiting, No diarrhea, Yes constipation, No blood in stool, Yes acid reflux, Yes hemorrhoids, No ulcers, No gallbladder problem and No black,tarry stools Louis Hematologic: No blood thinners, No blood disorders, No bleeding, No anemia and No blood clots Neuro Neurologic: No weakness Exam Const General: cooperative, healthy appearing, comfortable and no acute distress Nutritional Appearance: obese Orientation: alert and awake [facility] Head: normal to inspection Eyes General: appearance normal, both eyes and all related structures Neck Neck: normal visual inspection Resp Effort & Inspection: normal respiratory effort Auscultation: clear to auscultation bilaterally Cardio Rate: regular rate Rhythm: regular rhythm GI Palpation: soft and no hepatosplenomegaly Auscultation: normal bowel sounds Other: Well-healed infraumbilical diagnostic laparoscopic incision x2 Musc Cervical Spine: normal cervical lordosis Skin General: no rashes or lesions noted Neuro Cognition: normal cognition Extrem General: no calf tenderness Psych Appearance: grossly normal COVID (Procedure Consent) Procedure Criteria Procedure Criteria: Yes Elective The surgeon/proceduralist and patient have discussed in detail the risk of exposure to and/or potential harm posed by the COVID-19 virus with having a surgery/procedure at this time versus the risk of delaying the surgery/procedure. It is not possible to know either the risk of delaying the surgery or procedure or chance of getting an infection with perfect accuracy, but a joint decision was made between the patient and the surgeon/proceduralist to proceed at this time with the scheduled surgery/procedure as indicated on the consent form. Assessment and Plan Assessment and Plan (1) Acute right flank pain: Status: Acute Plan - Dr. Devin Montgomery MD: As the patient's most recent urinary tract infection was seemingly asymptomatic I do concur particularly in light of a solitary kidney that a posttreatment urinalysis be obtained to assure definitive treatment. It is of interest that her right flank pain seemed to improve but did not resolve with treatment. Because of the long-term history of proton pump inhibitor therapy and ongoing PPI dependence I do recommend a esophagogastroduodenoscopy with possible biopsy or polypectomy as indicated. Very careful inspection of the duodenum stomach esophagus for issues correlating with retrosternal pain as well as right upper quadrant discomfort will be pursued. Pending the results of the urinalysis and upper endoscopy if no other clear etiology is identified then I will recommend to the patient a laparoscopic cholecystectomy with selective cholangiography based upon a diagnosis of biliary dyskinesia and the significantly abnormal hepatobiliary scan. I have discussed technique, benefit, risk, alternatives. She is aware that based upon a hepatobiliary scan complete confirmation of resolution of the pain cannot be guaranteed. I see no evidence of shingles. I do have interest however in ensuring that her UTI has cleared. As she has had 2 previous diagnostic laparoscopies and I do recommend likely in a sign approach if we proceed on with a laparoscopic cholecystectomy. She has had an opportunity to ask and have questions answered. I appreciate the opportunity of assisting with her surgical care. Copy:Yanira Martinez CNP and Dr. Patricia Montgomery M.D., F.A.C.S. I have re-examined the patient. There are no clinical changes since date of exam. Devin Montgomery M.D., Randy.Vitaly.C.S.
--- NOTE | 2021-04-04 10:11 | OP.CCLET_ITS ---
04/04/2021 Patricia Wilkins [address] [place] [address] Re : Upper GI endoscopy procedure for Ana Mejia Dear Dr. Wilkins This procedure was performed on Sunday, April 04, 2021. My impressions and recommendations are as follows: Impressions : - Medium-sized hiatal hernia. - Z-line variable, 37 cm from the incisors. Biopsied. - Normal mid esophagus. Biopsied. - Multiple gastric polyps. Resected and retrieved. - Erythematous mucosa in the antrum. Biopsied. - Normal examined duodenum. Recommendations : - Discharge patient to home. - Resume previous diet. - Continue present medications. - Telephone my office for pathology results in 1 week. 2 numerous to count fundic gland polyps scattered throughout the stomach. No acute findings to correlate with abdominal pain The patient has known gallstones and an abnormal hepatobiliary scan. It will be recommended to her that she consider a laparoscopic cholecystectomy with cholangiography My findings are described in the full procedure note, which is enclosed. If I can be of further assistance, please feel free to contact me at Doctor phone number(s): Work: . Sincerely, Devin Montgomery MD 04/04/2021 10:09:53 AM This report has been signed electronically.
--- NOTE | 2021-04-04 10:11 | OP.EGD_ITS ---
Patient Name: Ana Mejia Procedure Date: 04/04/2021 9:50 AM Date of : 1955 Age: 65 Procedure: Upper GI endoscopy Indications: Epigastric abdominal pain Providers: Devin Montgomery MD Medicines: See the Anesthesia note for documentation of the administered medications Complications: No immediate complications. Procedure: Pre-Anesthesia Assessment: - Prior to the procedure, a History and Physical was performed, and patient medications and allergies were reviewed. The patient's tolerance of previous anesthesia was also reviewed. The risks and benefits of the procedure and the sedation options and risks were discussed with the patient. All questions were answered, and informed consent was obtained. Prior Anticoagulants: The patient has taken no previous anticoagulant or antiplatelet agents. ASA Grade Assessment: II - A patient with mild systemic disease. After reviewing the risks and benefits, the patient was deemed in satisfactory condition to undergo the procedure. After obtaining informed consent, the endoscope was passed under direct vision. Throughout the procedure, the patient's blood pressure, pulse, and oxygen saturations were monitored continuously. The gastroscope was introduced through the mouth, and advanced to the second part of duodenum. The upper GI endoscopy was accomplished without difficulty. The patient tolerated the procedure well. Scope In: 9:58:32 AM Scope Out: 10:04:09 AM Total Procedure Duration Time 0 hours 5 minutes 37 seconds Findings: A medium-sized hiatal hernia was present. The Z-line was variable and was found 37 cm from the incisors. Biopsies were taken with a cold forceps for histology. The mid esophagus was normal. Biopsies were taken with a cold forceps for histology. Multiple pedunculated and sessile polyps with no bleeding and no stigmata of recent bleeding were found in the entire examined stomach. The polyp was removed with a cold biopsy forceps. Resection and retrieval were complete. Diffuse mildly erythematous mucosa without bleeding was found in the gastric antrum. Biopsies were taken with a cold forceps for histology. The examined duodenum was normal. Impression: - Medium-sized hiatal hernia. - Z-line variable, 37 cm from the incisors. Biopsied. - Normal mid esophagus. Biopsied. - Multiple gastric polyps. Resected and retrieved. - Erythematous mucosa in the antrum. Biopsied. - Normal examined duodenum. Recommendation: - Discharge patient to home. - Resume previous diet. - Continue present medications. - Telephone my office for pathology results in 1 week. 2 numerous to count fundic gland polyps scattered throughout the stomach. No acute findings to correlate with abdominal pain The patient has known gallstones and an abnormal hepatobiliary scan. It will be recommended to her that she consider a laparoscopic cholecystectomy with cholangiography Procedure Code(s): --- Professional --- 12772, Esophagogastroduodenoscopy, flexible, transoral; with biopsy, single or multiple Diagnosis Code(s): --- Professional --- K44.9, Diaphragmatic hernia without obstruction or gangrene K22.8, Other specified diseases of esophagus K31.7, Polyp of stomach and duodenum K31.89, Other diseases of stomach and duodenum R10.13, Epigastric pain CPT copyright 2017 [employer] [place] [employer]. All rights reserved. The codes documented in this report are preliminary and upon drop hammer mechanic review may be revised to meet current compliance requirements. Devin Montgomery MD 04/04/2021 10:09:53 AM This report has been signed electronically. Number of Addenda: 0 Note Initiated On: 04/04/2021 9:50 AM
== END 2021-04-04 10:51 | disposition home or self-care (01) ==
LOC: EN 08:42 → AC 08:44
PROVIDERS: PCP Internal Medicine; Referring Provider Internal Medicine; Visit Provider Surgery
PROC: 0DJ08ZZ Inspection of Upper Intestinal Tract, Via Natural or Artificial Opening Endoscopic (ICD-10-PCS; CPT 43235; principal; 2021-04-04 09:40)
DX: K31.7 Polyp of stomach and duodenum (principal); K44.9 Diaphragmatic hernia without obstruction or gangrene; K31.89 Other diseases of stomach and duodenum; I10 Essential (primary) hypertension; K21.9 Gastro-esophageal reflux disease without esophagitis; E66.9 Obesity, unspecified; E07.9 Disorder of thyroid, unspecified; F32.9 Major depressive disorder, single episode, unspecified; G47.30 Sleep apnea, unspecified; Z87.440 Personal history of urinary (tract) infections; Z79.82 Long term (current) use of aspirin; Z79.899 Other long term (current) drug therapy; Z68.34 Body mass index [BMI] 34.0-34.9, adult
CPT/HCPCS: 43239; 88305; 88342; J7120; J2405

== ENCOUNTER → 2021-04-14 13:29 | Outpatient (CLI) | payer MEDICARE, OTHER, SELFPAY | PROVIDERS: PCP Internal Medicine; Referring Provider Nurse Practitioner Adult Health; Visit Provider Nurse Practitioner Adult Health | DX: N39.0 Urinary tract infection, site not specified (principal) | CPT/HCPCS: 87086; 87088 ==

== ENCOUNTER 2021-04-17 05:43 | Emergency (ER) | payer MEDICARE, OTHER, SELFPAY ==
[2021-04-17 05:44] VITALS: BP 134/87; PULSE 89; RESP 23; TEMP 36.9; O2SAT 97; BMI 35.2
--- NOTE | 2021-04-17 05:58 | EKG12_ITS ---
Test Reason : CP Blood Pressure : / mmHG Vent. Rate : 090 BPM Atrial Rate : 090 BPM P-R Int : 168 ms QRS Dur : 086 ms QT Int : 374 ms P-R-T Axes : 047 -20 -12 degrees QTc Int : 457 ms Normal sinus rhythm Voltage criteria for left ventricular hypertrophy Nonspecific ST abnormality Abnormal ECG Confirmed by GAURANG REZA, DENZEL ([id number]), film editor supervisor SERA CASAS ([id number]) on 04/18/2021 1:23:06 PM Referred By: CAMERON Confirmed By:KIM MERLOS MD
--- NOTE | 2021-04-17 05:58 | RAD_ITS ---
STUDY: X-RAY CHEST REASON FOR EXAM: Female, 65 years old. Chest pain. TECHNIQUE: AP COMPARISON: 06/03/2018 CXR FINDINGS: No evidence of pneumonia, pulmonary edema, pneumothorax or pleural effusion. Cardiac silhouette, hilar and mediastinal contours with no acute findings. Heart size normal. Atherosclerosis of the thoracic aorta. Degenerative osseous changes with no acute osseous abnormality. RAD/Chest 1 View (Portable) IMPRESSION: No acute findings. Electronically Signed: Richard Escalera MD at 6:36 EDT Tel , Service support ,
--- NOTE | 2021-04-17 06:00 | EDS_ITS ---
HPI History of Present Illness Chief Complaint: Chest Pain Informant: patient Onset/Context/Timing Onset: Today Activity at onset: sudden Quality: Positive for Sharp Location: Substernal Current Severity: Gone Maximum Severity: Moderate Narrative Narrative: Patient presents secondary to chest pain. She states she woke at 530 this morning with sharp substernal chest pain. She is a history of esophageal spasm but states this pain feels completely different. No significant shortness of breath. Did not break out in a sweat. Patient denies any recent chest pain with exertion or exertional dyspnea. The time of my exam patient states she feels that the pain is resolved. [facility] Medical History Anemia Anxiety Biliary dyskinesia Cancer CPAP (continuous positive airway pressure) dependence Depression Esophageal spasm Gastric reflux GERD (gastroesophageal reflux disease) Hearing loss High cholesterol History of diverticulitis History of IBS History of renal disease History of stress test Injury of head and neck Non-smoker Post-menopausal Thyroid disease Wears glasses Home Medications aspirin 81 mg PO MOWEFR 02/24/14 [History Last Taken 04/02/21] bupropion HCl [Wellbutrin] 100 mg PO DAILY 02/24/14 [History Last Taken 11/26/16] duloxetine 60 mg PO DAILY 02/24/14 [History Last Taken 11/26/16] hydrochlorothiazide 25 mg PO DAILY 02/24/14 [History Last Taken 11/26/16] levothyroxine 50 mcg PO DAILY 02/24/14 [History Last Taken 04/04/21 07:10] dextroamphetamine-amphetamine [Adderall 10 mg Tablet] 10 mg PO DAILY 11/26/16 [History Last Taken 11/26/16] pantoprazole 40 mg PO DAILY 11/26/16 [History Last Taken 04/04/21 07:10] ferrous sulfate 325 mg PO DAILY 11/15/20 [History Last Taken 11/13/20] losartan 50 mg PO DAILY 11/15/20 [History Last Taken 04/04/21 07:10] multivitamin with minerals 1 each PO DAILY 11/15/20 [History Last Taken Unknown] omega-3 fatty acids-fish oil 1 each PO DAILY 11/15/20 [History Last Taken 11/13/20] alpha lipoic acid 200 mg capsule 200 mg PO DAILY 03/19/21 [History Last Taken Unknown] cholecalciferol (vitamin D3) 50 mcg (2,000 unit) capsule 50 mcg PO DAILY 03/19/21 [History Last Taken Unknown] mecobalamin-levomefolate calcium-pyridoxal phos 3 mg-35 mg-2 mg tablet 1 tab PO ONCE tab 03/19/21 [History Last Taken Unknown] linaclotide [Linzess] 72 mcg PO DAILY 04/03/21 [History Last Taken Unknown] vibegron [Gemtesa] 75 mg PO DAILY 04/03/21 [History Last Taken Unknown] Allergy/AdvReac Type Severity Reaction Status Date / Time Sulfa (Sulfonamide Allergy Other Verified 04/17/21 05:49 Antibiotics) zoster vaccine live Allergy Other Verified 04/17/21 05:49 [From Zostavax (PF)] Family History Father Diabetes Heart disease Cancer skin Hypertension CVA (cerebral vascular accident) Mother Hypertension Brother Cancer lymphoma Surgical History History of 2 sections History of bunionectomy History of cardiac catheterization History of colonoscopy (~10/2020) History of dilatation and curettage History of laparoscopy History of left inguinal hernia repair History of tonsillectomy and adenoidectomy Social History Smoking Status: Never smoker ROS ROS ED Constitutional Constitutional ED: Denies chills or fever(s) Eyes Eyes: Denies change in vision ENT ENT ED: Denies sore throat Cardiovascular Cardiovascular: Reports chest pain Respiratory/Chest Respiratory/Chest: Denies cough or dyspnea Gastrointestinal Gastrointestinal: Denies abdominal pain, diarrhea, nausea or vomiting Musculoskeletal Musculoskeletal: Denies back pain Integumentary Denies rash Neurologic Neurologic: Denies headache(s) or weakness Allergic/Immunologic Allergic/Immunologic ED: Denies urticaria EXAM Physical Exam Const Vital Signs: 04/17/21 05:44 04/17/21 06:02 04/17/21 06:46 Temperature 98.5 F Temperature Source Oral Pulse Rate 89 76 Respiratory Rate 23 H 18 Blood Pressure 134/87 H 137/84 H Blood Pressure Mean 102 101 Pulse Ox 97 93 Oxygen Delivery Method Room Air Room Air Room Air Positive well nourished and well developed General Appearance ED: well developed HEENT Reports normocephalic and head/scalp atraumatic Eyes PERRL and EOMs intact bilaterally Neck supple Chest Wall inspection of chest normal and palpation of chest normal Resp normal respiratory effort and clear to auscultation bilaterally Cardio regular rate and regular rhythm GI normal to inspection, nondistended, normoactive bowel sounds Palpation: soft Extremity normal to inspection Neuro oriented x3 and no sensory deficits noted Sensorium / Orientation: alert Motor Exam: strength 5/5 throughout Psych mental status grossly normal Skin no rashes or lesions noted MDM MDM MDM Narrative Medical decision making narrative: Patient was given aspirin on arrival. EKG, labs, chest x-ray obtained. Lab Data Attestation: I reviewed the patient's lab results. Labs: Laboratory Results - last 24 hr 04/17/21 04/17/21 04/17/21 06:00 06:00 06:00 WBC 4.8 RBC 4.71 Hgb 14.4 Hct 42.7 MCV 90.7 MCH 30.6 MCHC 33.7 RDW Std Deviation 40.9 RDW Coeff of Elliott 12.3 Plt Count 236 MPV 9.4 Immature Gran % (Auto) 0.400 Neut % (Auto) 55.8 Lymph % (Auto) 30.1 Mcintosh % (Auto) 7.9 Eos % (Auto) 5.2 H Baso % (Auto) 0.6 Absolute Neuts (auto) 2.7 Absolute Lymphs (auto) 1.44 Nucleated RBC % 0 D-Dimer Quant (PE/DVT) 0.45 Sodium 140 Potassium 3.8 Chloride 106 Carbon Dioxide 28.0 Anion Gap 6 BUN 9 Creatinine 0.82 Estim Creat Clear Calc 61.55 Est GFR (MDRD) Af Amer 90 Est GFR (MDRD) Non-Af 74 BUN/Creatinine Ratio 10.9 Glucose 130 H Calcium 8.8 Troponin I High Sens 7 Radiography Chest X-Ray - ED: 1 View, Read by ED Physician, Normal, Heart, Lungs and Mediastinum Diagnostic Testing: Radiology Impression Chest X-Ray 04/17/21 05:58 IMPRESSION: No acute findings. Electronically Signed: Richard Escalera MD at 6:36 EDT Tel , Service support , EKG Initial EKG: Attestation: I personally reviewed and interpreted this EKG as follows: Interpretation: Sinus Rhythm (Sinus at 90 with no acute ischemia. ) Treatment and Re-Evaluation Comments:: Chest x-ray per my interpretation shows no acute findings. Lab work including initial troponin and D-dimer negative. This blood work was drawn only 30 minutes after the patient onset of pain. On repeat evaluation she is resting comfortably and had no recurrent pain while here. Patient will have 2-hour repeat troponin drawn. Assuming this is normal patient be discharged home to follow-up with her primary care physician. Discharge Plan Triage Chief Complaint: Chest Pain ED Provider: Carmelita Gonzalez Dx/Rx/DC Orders Clinical Impression: Chest pain Instructions: ED Chest Pain, Noncardiac Prescriptions: No Action alpha lipoic acid 200 mg capsule 200 mg PO DAILY RF: 0 [id number] 3-35-2 mg tablet 1 tab PO ONCE RF: 0 cholecalciferol (vitamin D3) 50 mcg (2,000 unit) capsule 50 mcg PO DAILY RF: 0 levothyroxine 50 MCG tablet 50 mcg PO DAILY RF: 0 bupropion HCl [Wellbutrin] 75 MG tablet 100 mg PO DAILY RF: 0 aspirin 81 MG tablet,chewable 81 mg PO MOWEFR RF: 0 hydrochlorothiazide 25 MG tablet 25 mg PO DAILY RF: 0 duloxetine 60 MG capsule 60 mg PO DAILY RF: 0 dextroamphetamine-amphetamine [Adderall] 10 MG tablet 10 mg PO DAILY RF: 0 pantoprazole 40 MG tablet 40 mg PO DAILY RF: 0 losartan 50 MG tablet 50 mg PO DAILY RF: 0 ferrous sulfate 325 MG tablet 325 mg PO DAILY RF: 0 multivitamin with minerals 1 EACH tablet 1 each PO DAILY RF: 0 omega-3 fatty acids-fish oil 1 EACH capsule 1 each PO DAILY RF: 0 Gemtesa 75 mg Tablet 75 mg PO DAILY RF: 0 Linzess 72 mcg capsule 72 mcg PO DAILY RF: 0 Primary Care Provider: Patricia Wilkins Referrals: Patricia Wilkins MD [Primary Care Provider] - 1 Week Disposition Disposition: Home, Self Care
[2021-04-17] MEDS: Aspirin 81 MG TAB.CHEW 324 MG PO (06:05)
[2021-04-17 06:17] LABS: Absolute Lymphocyte Count 1.44 X10^3/uL (0.83-4.51); Absolute Neutrophil Count 2.7 X10^3/uL (2.0-7.7); Basophil# 0.03 X10^3/uL; Basophil% 0.6 % (0-1); Eosinophil# 0.25 X10^3/uL; Eosinophils% 5.2 % (0-5); Hematocrit 42.7 % (37-47); Hemoglobin 14.4 g/dL (12.0-15.0); Lymphocyte # 1.44 X10^3/ul (0.83-4.51); Lymphocyte % 30.1 % (19-41); Mean Corp Hgb Conc 33.7 g/dL (32-36); Mean Corpuscular Hgb 30.6 pg (27.0-32.0); Mean Corpuscular Volume 90.7 fL (81-99); Mean Platelet Vol. 9.4 fl (6.2-12.0); Monocyte# 0.38 X10^3/uL; Monocyte% 7.9 % (0-10); NRBC Flagged by Analyzer 0 % (0-5); Neutrophil # 2.67 X10^3/uL (2.7-7.7); Neutrophil % 55.8 % (47-70); Platelet Count 236 K/mm3 (150-450); RBC Distribution Width CV 12.3 % (11.6-14.6); RBC Distribution Width SD 40.9 fl (35.1-43.9); Red Blood Count 4.71 M/mm3 (4.2-5.4); White Blood Count 4.8 K/mm3 (4.4-11.0)
[2021-04-17 06:26] LABS: D-Dimer Quantitative (DVT/PE) 0.45 FEU/ug/m (0.27-0.49)
[2021-04-17 06:37] LABS: Anion Gap 6 (5-15); BUN 9 mg/dL (7-18); BUN/Creat Ratio 10.9 RATIO (10-20); Calcium,Total 8.8 mg/dL (8.5-10.1); Chloride 106 mmol/L (98-107); Creatinine, Serum 0.82 mg/dL (0.55-1.02); EST Glomerular Filtration Rate 74 mL/min (>60); Est Glom Filt Rate - Afr Amer 90 mL/min (>60); Estimated Creatinine Clearance 61.55 ml/min; Glucose 130 mg/dL (74-106); Potassium 3.8 mmol/L (3.5-5.1); Sodium Level 140 mmol/L (136-145); Troponin-I HS 7 pg/mL (3.0-54.0)
[2021-04-17 06:46] VITALS: BP 137/84; PULSE 76; RESP 18; O2SAT 93
[2021-04-17 07:57] VITALS: BP 146/84; PULSE 79; RESP 15
[2021-04-17 08:21] LABS: Troponin-I HS 8 pg/mL (3.0-54.0)
[2021-04-17 08:32] VITALS: BP 147/85; PULSE 83; RESP 18; O2SAT 96
== END 2021-04-17 08:32 | disposition home or self-care (01) ==
PROVIDERS: Emergency Provider Emergency Medicine; PCP Internal Medicine
DX: R07.2 Precordial pain (principal)
CPT/HCPCS: 71045; 80048; 84484; 85025; 85379; 93005; 99285; A4216

== ENCOUNTER → 2021-04-24 13:50 | Outpatient (CLI) | payer MEDICARE, OTHER, SELFPAY ==
[2021-04-24 15:13] LABS: Thyroid Stim Hormone (TSH) 0.15 uIU/mL (0.358-3.74)
== END ==
PROVIDERS: PCP Internal Medicine; Visit Provider Nurse Practitioner Adult Health
DX: Z01.818 Encounter for other preprocedural examination (principal); N39.41 Urge incontinence; R94.6 Abnormal results of thyroid function studies
CPT/HCPCS: 36415; 84443; 87086; 87088

== ENCOUNTER 2021-04-30 09:53 | Day surgery (SDC) | payer MEDICARE, OTHER, SELFPAY ==
[2021-04-30] VITALS (13 sets, daily range): BP systolic 124–162; BP diastolic 71–94; PULSE 70–86; RESP 14–16; TEMP 36.2–37.2; O2SAT 92–100; BMI 34.4
--- NOTE | 2021-04-30 | GALL_PTH ---
PATIENT: SAMIR BAUTISTA LOC: [facility] [place] U#:[id number] AGE/SX: 65/F ROOM: RE04/30/[address]: Dr. Devin Montgomery MD : 1955 BED: DIS: 04/30/2021 SPEC #: [id number] RECD: 04/30/21 13:41 STATUS: LAURA MARI #: [id number] JANET: 04/30/21 00:[address]: Devin Montgomery DEPT: SURGICAL PATHOLOGY RECD BY: Norris Kelley ENTERED: 05/01/21 09:03 SP TYPE: RADHA WILSON DR: Dr. Patricia Wilkins MD Tissues: Gallbladder, NOS Procedures: Surgery Specimen Level III HEADER OPERATION: Laparoscopic cholecystectomy with IOC PRE-OP DIAGNOSIS: Acute right flank pain TISSUE SUBMITTED: Gallbladder MICROSCOPIC DIAGNOSIS Gallbladder, cholecystectomy: Mild chronic cholecystitis and cholesterolosis. See comment. JAREK:nayana 05/02/2021 COMMENT No stones are identified in the container or in the gallbladder. MICROSCOPIC DESCRIPTION Slides are reviewed. GROSS DESCRIPTION Received is one container labeled with the patient's name and designated gallbladder. The specimen consists of a gallbladder measuring 9 cm in length and up to 4 cm in diameter. The external surface is pink-agudelo, smooth and glistening for the most part. Focally it is granular, hemorrhagic and contains cautery artifact. The gallbladder contains green-yellow mucoid bile. No stones are identified in the container or in the gallbladder. A few yellowish polyps are noted suggestive of cholesterolosis measuring 0.1 to 0.3 cm in greatest dimension. The mucosa is bile-stained and without any mass lesions. The gallbladder wall measures up to 0.1 cm in thickness. [employer] sections from the gallbladder and the cystic duct are submitted in one cassette. / SJ:nayana 05/01/21 TC:3 CPT: 76821
[2021-04-30] MEDS: Lactated Ringers 1,000 ML 100 ML IV ×2 (10:10→13:19)
--- NOTE | 2021-04-30 10:14 | HP.PCM_ITS ---
History and Physical Date of Admission: 04/30/21 Chief Complaint: abn hida Allergies Sulfa (Sulfonamide Antibiotics) Allergy (Verified 03/19/21 15:39) Other zoster vaccine live [From Zostavax (PF)] Allergy (Verified 03/19/21 15:39) Other Medications aspirin 81 mg PO MOWEFR 02/24/14 [History Confirmed 03/19/21] bupropion HCl [Wellbutrin] 100 mg PO DAILY 02/24/14 [History Confirmed 03/19/21] duloxetine 90 mg PO DAILY 02/24/14 [History Confirmed 03/19/21] hydrochlorothiazide 25 mg PO DAILY 02/24/14 [History Confirmed 03/19/21] levothyroxine 50 mcg PO DAILY 02/24/14 [History Confirmed 03/19/21] dextroamphetamine-amphetamine [Adderall 10 mg Tablet] 10 mg PO DAILY 11/26/16 [History Confirmed 03/19/21] pantoprazole 40 mg PO DAILY 11/26/16 [History Confirmed 03/19/21] ferrous sulfate 325 mg PO DAILY 11/15/20 [History Confirmed 03/19/21] losartan 50 mg PO DAILY 11/15/20 [History Confirmed 03/19/21] multivitamin with minerals 1 each PO DAILY 11/15/20 [History Confirmed 03/19/21] omega-3 fatty acids-fish oil 1 each PO DAILY 11/15/20 [History Confirmed 03/19/21] alpha lipoic acid 200 mg capsule 200 mg PO DAILY 03/19/21 [History Confirmed 03/19/21] cholecalciferol (vitamin D3) 50 mcg (2,000 unit) capsule 50 mcg PO DAILY 03/19/21 [History Confirmed 03/19/21] mecobalamin-levomefolate calcium-pyridoxal phos 3 mg-35 mg-2 mg tablet 1 tab PO ONCE tab 03/19/21 [History Confirmed 03/19/21] Assessment and Plan Assessment and Plan (1) Acute right flank pain: Status: Acute Comment: I now have results of a CT scan of the abdomen pelvis without contrast that was performed on November 26, 2016 at the [facility]. This demonstrated small focus of decreased attenuation in the left lobe of the liver about 9.5 mm too small to characterize. The liver was otherwise normal. There were multiple gallstones identified. There is no acute intra-abdominal disease. Unilateral left-sided renal agenesis. Large amount of stool and fecal stasis. A right intramuscular abdominal wall lipoma. This therefore supports the patient's diagnosis of previously known cholelithiasis. Devin Montgomery M.D., F.A.C.S. March 26, 2021 I have been notified that the patient's repeat urine culture is no growth. The patient is feeling slightly better. She is scheduled to have a esophagogastroduodenoscopy on April 04, 2021. Consideration for laparoscopic cholecystectomy for biliary dyskinesia dyskinesia Plan: I now have records from March 26, 2021. Her repeat urine culture was negative. She is tentatively slated to have a upper endoscopy on April 04, 2021. She has a abnormal hepatobiliary scan. We will consider possible future laparoscopic cholecystectomy. Devin Montgomery M.D., Randy.Vitaly.C.S. 03/26/21 1250<Electronically signed by Devin Montgomery MD>Date Devin Montgomery MD cc: AGUILA Martinez; Dr. Patricia Wilkins MD ~*Signed ADDENDUM by Dr. Devin Montgomery MD on 03/21/21 at 1525 Intake Chief Complaint: abn hida Allergies Sulfa (Sulfonamide Antibiotics) Allergy (Verified 03/19/21 15:39) Other zoster vaccine live [From Zostavax (PF)] Allergy (Verified 03/19/21 15:39) Other Medications aspirin 81 mg PO MOWEFR 02/24/14 [History Confirmed 03/19/21] bupropion HCl [Wellbutrin] 100 mg PO DAILY 02/24/14 [History Confirmed 03/19/21] duloxetine 90 mg PO DAILY 02/24/14 [History Confirmed 03/19/21] hydrochlorothiazide 25 mg PO DAILY 02/24/14 [History Confirmed 03/19/21] levothyroxine 50 mcg PO DAILY 02/24/14 [History Confirmed 03/19/21] dextroamphetamine-amphetamine [Adderall 10 mg Tablet] 10 mg PO DAILY 11/26/16 [History Confirmed 03/19/21] pantoprazole 40 mg PO DAILY 11/26/16 [History Confirmed 03/19/21] ferrous sulfate 325 mg PO DAILY 11/15/20 [History Confirmed 03/19/21] losartan 50 mg PO DAILY 11/15/20 [History Confirmed 03/19/21] multivitamin with minerals 1 each PO DAILY 11/15/20 [History Confirmed 03/19/21] omega-3 fatty acids-fish oil 1 each PO DAILY 11/15/20 [History Confirmed 03/19/21] alpha lipoic acid 200 mg capsule 200 mg PO DAILY 03/19/21 [History Confirmed 03/19/21] cholecalciferol (vitamin D3) 50 mcg (2,000 unit) capsule 50 mcg PO DAILY 03/19/21 [History Confirmed 03/19/21] mecobalamin-levomefolate calcium-pyridoxal phos 3 mg-35 mg-2 mg tablet 1 tab PO ONCE tab 03/19/21 [History Confirmed 03/19/21] Assessment and Plan Assessment and Plan (1) Acute right flank pain: Status: Acute Comment: I now have results of a CT scan of the abdomen pelvis without contrast that was performed on November 26, 2016 at the [facility]. This demonstrated small focus of decreased attenuation in the left lobe of the liver about 9.5 mm too small to characterize. The liver was otherwise normal. There were multiple gallstones identified. There is no acute intra-abdominal disease. Unilateral left-sided renal agenesis. Large amount of stool and fecal stasis. A right intramuscular abdominal wall lipoma. This therefore supports the patient's diagnosis of previously known cholelithiasis. Devin Montgomery M.D., F.A.C.S. 03/21/21 1525<Electronically signed by Devin Montgomery MD>Date Devin Montgomery MD cc: AGUILA Martinez; Dr. Patricia Wilkins MD ~*Signed Intake Vital Signs 03/19/21 15:38 Height 5 ft 5 in Weight: 210 lb 8 oz BMI 35.0 BP 122/79 H Blood Pressure Location Rt brachial Position Sitting Respiration 18 Pulse 101 H Pulse Source NIBP Temp 97.9 F Temp Source Temporal Pulse Oximetry (%) 98 Oxygen Delivery Method room air Intake Visit Reasons: GALLBLADDER Chief Complaint: abn hida [employer] Required: No Is patient in pain?: No Allergies Sulfa (Sulfonamide Antibiotics) Allergy (Verified 03/19/21 15:39) Other zoster vaccine live [From Zostavax (PF)] Allergy (Verified 03/19/21 15:39) Other Medications aspirin 81 mg PO MOWEFR 02/24/14 [History Confirmed 03/19/21] bupropion HCl [Wellbutrin] 100 mg PO DAILY 02/24/14 [History Confirmed 03/19/21] duloxetine 90 mg PO DAILY 02/24/14 [History Confirmed 03/19/21] hydrochlorothiazide 25 mg PO DAILY 02/24/14 [History Confirmed 03/19/21] levothyroxine 50 mcg PO DAILY 02/24/14 [History Confirmed 03/19/21] dextroamphetamine-amphetamine [Adderall 10 mg Tablet] 10 mg PO DAILY 11/26/16 [History Confirmed 03/19/21] pantoprazole 40 mg PO DAILY 11/26/16 [History Confirmed 03/19/21] ferrous sulfate 325 mg PO DAILY 11/15/20 [History Confirmed 03/19/21] losartan 50 mg PO DAILY 11/15/20 [History Confirmed 03/19/21] multivitamin with minerals 1 each PO DAILY 11/15/20 [History Confirmed 03/19/21] omega-3 fatty acids-fish oil 1 each PO DAILY 11/15/20 [History Confirmed 03/19/21] alpha lipoic acid 200 mg capsule 200 mg PO DAILY 03/19/21 [History Confirmed 03/19/21] cholecalciferol (vitamin D3) 50 mcg (2,000 unit) capsule 50 mcg PO DAILY 03/19/21 [History Confirmed 03/19/21] mecobalamin-levomefolate calcium-pyridoxal phos 3 mg-35 mg-2 mg tablet 1 tab PO ONCE tab 03/19/21 [History Confirmed 03/19/21] Is last menstrual period known: No Post menopausal: Yes Patient : No PFSH Medical History (Updated 03/19/21 @ 15:33 by Ivy Apple) Biliary dyskinesia GERD (gastroesophageal reflux disease) Surgical History (Updated 03/19/21 @ 15:37 by Ivy Apple) History of 2 sections History of colonoscopy (~10/2020) History of dilatation and curettage History of laparoscopy History of left inguinal hernia repair History of tonsillectomy and adenoidectomy Family History (Updated 03/19/21 @ 15:38 by Ivy Apple) Father Diabetes Heart disease Cancer skin Hypertension CVA (cerebral vascular accident) Mother Hypertension Brother Cancer lymphoma Social History Smoking Status: Never smoker HPI HPI HPI: SAMIR BAUTISTA, is a 65 F who presents to the office today for surgical consultation regarding abdominal pain. The patient is referred by Yanira Martinez CNP and Dr. Patricia Wilkins and a written copy of my surgical consult and recommendations will return to her. The patient had a screening colonoscopy November 19, 2020 per myself and some diverticulosis of the sigmoid and tortuous colon noted no acute findings. She has been taking a supplement to assist with constipation. By report she is been having difficulties with loss of her nephew and loss of a sister. Laboratory of March 09, 2021 demonstrates a white blood cell count of 5.8 with a hemoglobin 15.6 and hematocrit 46.1 and a platelet count of 256,000. Potassium was low at 3.2. Liver function tests were not obtained. Urinalysis was normal. At the [facility] on March 13 a hepatobiliary scan was obtained. Cystic duct common bile duct patent. There was felt to be an ejection fraction of less than 10%. A urine culture summary was provided March 06, 2021 showing Klebsiella pneumonia Plain films of the abdomen March 03, 2021 showed mildly distended large bowel loops overlying the right upper quadrant moderate amount of stool gas large bowel loops A previous right upper quadrant ultrasound February 03, 2021 performed in the [facility] showed normal right upper quadrant. Fatty infiltration of the liver. Stable left hepatic cyst. Common bile duct was 0.5 cm. Gallbladder was not distended there was no cholelithiasis no wall thickening no edema no pericholecystic fluid and no Gutierrez sign. The right kidney had no hydronephrosis. There was a discussion at this testing was obtained because of abnormal liver function tests. As of January 02, 2021 ALT was 42 with high normal being 38 Now it is of note that the patient states that in the past she had an imaging procedure performed notifying her that she had gallstones. She does not recall the type of imaging or date. Since the year 1999 she has been on proton pump inhibitors. She is currently on pantoprazole. She can have severe retrosternal pain. She has undergone cardiac catheterization without clinically significant disease. Her current presenting concern is a persistent right flank pain. She does not correlate an aggravation with food. 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 Her most recent urinary tract infection was asymptomatic. She was placed on appropriate antibiotics with improvement in the right flank pain but not complete resolution. She is requesting that a posttreatment UA be obtained. ROS General General: Yes fatigue; No weight change, appetite, colon cancer, breast cancer or weakness HEENT HEENT: No difficulty swallowing, eye injury, eye surgery, swollen glands or hoarseness Endo Endocrine: Yes thyroid disease; No diabetes mellitus, thyroid cancer, Hair loss, heat intolerance or cold intolerance Musc Musculoskeletal: No back problems, arthritis, rheumatoid arthritis, gout or joint pain Cardio Cardiovascular: Yes high blood pressure; No murmur, pacemaker, heart disease, atrial fibrillation, heart attack, heart stent, palpitations, shortness of breat with exertion or chest pain Psych Psychiatric: Yes depression and anxiety; No hearing voices Resp Respiratory: No shortness of breath, Yes sleep apnea, No cough, No COPD, No asthma, No emphysema and No wheezing Gastro Gastrointestinal: No abdominal pain, No nausea or vomiting, No diarrhea, Yes constipation, No blood in stool, Yes acid reflux, Yes hemorrhoids, No ulcers, No gallbladder problem and No black,tarry stools Louis Hematologic: No blood thinners, No blood disorders, No bleeding, No anemia and No blood clots Neuro Neurologic: No weakness Exam Const General: cooperative, healthy appearing, comfortable and no acute distress Nutritional Appearance: obese Orientation: alert and awake [facility] Head: normal to inspection Eyes General: appearance normal, both eyes and all related structures Neck Neck: normal visual inspection Resp Effort & Inspection: normal respiratory effort Auscultation: clear to auscultation bilaterally Cardio Rate: regular rate Rhythm: regular rhythm GI Palpation: soft and no hepatosplenomegaly Auscultation: normal bowel sounds Other: Well-healed infraumbilical diagnostic laparoscopic incision x2 Musc Cervical Spine: normal cervical lordosis Skin General: no rashes or lesions noted Neuro Cognition: normal cognition Extrem General: no calf tenderness Psych Appearance: grossly normal COVID (Procedure Consent) Procedure Criteria Procedure Criteria: Yes Elective The surgeon/proceduralist and patient have discussed in detail the risk of exposure to and/or potential harm posed by the COVID-19 virus with having a surgery/procedure at this time versus the risk of delaying the surgery/procedure. It is not possible to know either the risk of delaying the surgery or procedure or chance of getting an infection with perfect accuracy, but a joint decision was made between the patient and the surgeon/pro ceduralist to proceed at this time with the scheduled surgery/procedure as indicated on the consent form. Assessment and Plan Assessment and Plan (1) Acute right flank pain: Status: Acute Plan - Dr. Devin Montgomery MD: As the patient's most recent urinary tract infection was seemingly asymptomatic I do concur particularly in light of a solitary kidney that a posttreatment urinalysis be obtained to assure definitive treatment. It is of interest that her right flank pain seemed to improve but did not resolve with treatment. Because of the long-term history of proton pump inhibitor therapy and ongoing PPI dependence I do recommend a esophagogastroduodenoscopy with possible biopsy or polypectomy as indicated. Very careful inspection of the duodenum stomach esophagus for issues correlating with retrosternal pain as well as right upper quadrant discomfort will be pursued. Pending the results of the urinalysis and upper endoscopy if no other clear etiology is identified then I will recommend to the patient a laparoscopic cholecystectomy with selective cholangiography based upon a diagnosis of biliary dyskinesia and the significantly abnormal hepatobiliary scan. I have discussed technique, benefit, risk, alternatives. She is aware that based upon a hepatobiliary scan complete confirmation of resolution of the pain cannot be guaranteed. I see no evidence of shingles. I do have interest however in ensuring that her UTI has cleared. As she has had 2 previous diagnostic laparoscopies and I do recommend likely in a sign approach if we proceed on with a laparoscopic cholecystectomy. She has had an opportunity to ask and have questions answered. I appreciate the opportunity of assisting with her surgical care. Copy:Yanira Martinez CNP and Dr. Patricia Montgomery M.D., F.A.C.S. On April 04, 2021 the patient had a esophagogastroduodenoscopy. A medium- sized hiatal hernia was present. Mild gastritis identified. Pathology showed mild chronic inflammation. Fundic gland polyps. The distal esophagus showed no pathologic change. Mid esophagus no pathologic change. H. pylori was negative. Armed with its information and the bouts of right flank pain and known gallstones it was felt that the patient had symptomatic chronic cholecystitis cholelithiasis. After arranging with her schedule she presents now for planned laparoscopic cholecystectomy with selective cholangiography. She is aware of the technique, benefit, risk, alternatives. She has had an opportunity to ask and have questions answered. We will proceed as noted. Devin Montgomery M.D., F.A.C.S.
[2021-04-30 11:20] LABS: Thyroid Stim Hormone (TSH) 0.12 uIU/mL (0.358-3.74)
--- NOTE | 2021-04-30 11:26 | EX.PCM.DISCH ---
Discharge Instructions Procedure General Surgery Diet Discharge Diet: Light diet - advance as tolerated (if you have questions about your diet instructions, please talk to you doctor.) Activity Discharge Activity: May Not Drive (for 3-5 days or while taking narcotic pain medicine.) May shower in (days): 1 Lifting Restrictions: 10 pounds Dressing / Incision Call your doctor if your incision/area has: Continuous Slow Oozing, Sudden Increased Bleeding, Increased Pain/ Swelling, Increased Redness and Foul Smelling Discharge Call your doctor if you observe: Fever of 101 or Higher Suture Line Care: Avoid Pulling/Pushing and Avoid Pinching/Bending Additional Dressing/Incision Instructions:: Change or remove dressing in 4 days. Leave steri-strips in place for 1 week. Follow Up Care Please Follow Up With: Devin Montgomery MD When: Call [phone] to make an appointment to be seen in about 10 days. Test Results: Test results from this visit will be discussed in further detail at your follow-up appointment, if applicable. Discharge Plan Admission Attending Provider: Devin Montgomery Primary Care Provider: Patricia Wilkins Discharge Orders/Prescriptions Prescriptions: No Action alpha lipoic acid 200 mg capsule 200 mg PO DAILY RF: 0 [id number] 3-35-2 mg tablet 1 tab PO ONCE RF: 0 cholecalciferol (vitamin D3) 50 mcg (2,000 unit) capsule 50 mcg PO DAILY RF: 0 levothyroxine 50 MCG tablet 50 mcg PO DAILY RF: 0 bupropion HCl [Wellbutrin] 75 MG tablet 100 mg PO DAILY RF: 0 aspirin 81 MG tablet,chewable 81 mg PO MOWEFR RF: 0 hydrochlorothiazide 25 MG tablet 25 mg PO DAILY RF: 0 duloxetine 60 MG capsule 60 mg PO DAILY RF: 0 dextroamphetamine-amphetamine [Adderall] 10 MG tablet 10 mg PO DAILY RF: 0 pantoprazole 40 MG tablet 40 mg PO DAILY RF: 0 losartan 50 MG tablet 50 mg PO DAILY RF: 0 ferrous sulfate 325 MG tablet 325 mg PO DAILY RF: 0 multivitamin with minerals 1 EACH tablet 1 each PO DAILY RF: 0 omega-3 fatty acids-fish oil 1 EACH capsule 1 each PO DAILY RF: 0 Gemtesa 75 mg Tablet 75 mg PO DAILY RF: 0 nitrofurantoin monohyd/m-cryst [Macrobid] 100 mg Capsule 100 mg PO BID RF: 0 potassium chloride 10 mEq Capsule, Extended Release 10 meq PO DAILY RF: 0
[2021-04-30] MEDS: Cefazolin 2 GM in 0.9% Normal Saline 100 ML IV (11:53)
--- NOTE | 2021-04-30 12:00 | RAD_ITS ---
INDICATION: PAIN EXAMINATION/TECHNIQUE: Limited spot intraoperative films are presented for evaluation. Total Fluoroscopic Time: 19.3 seconds Number of Fluoroscopic Images: 2 Radiation dosage : 23.87 mGy COMPARISON: None. FINDINGS: Spot fluoroscopic images obtained demonstrate contrast injection into the common bile duct, unremarkable opacification of the intra and extrahepatic ducts is seen, no evidence of filling defect is visualized, mobile lucencies within the common bile duct suggestive of injected air bubbles. There is no evidence of biliary ductal dilatation. There is free passage into the duodenum. No evidence of contrast extravasation outside the biliary tree to suggest bile duct injury. RAD/Cholangiogram/ O R,Initial IMPRESSION: Unremarkable intraoperative cholangiogram. Electronically Signed: Triston Brambila MD at 14:55 EDT Tel , Service support ,
[2021-04-30] MEDS: Bupivacaine Mpf 0.5% 30 ML VIAL (12:50)
--- NOTE | 2021-04-30 12:52 | OP.PCM_ITS ---
Problems Associated Problem List Diagnoses (1) Biliary dyskinesia: (2) Cholelithiasis with chronic cholecystitis: Report of Operation Date of Procedure: 04/30/21 Pre-Operative Diagnosis: Chronic cholecystitis cholelithiasis Post-Operative Diagnosis: Same Surgery/Procedure Performed:: Laparoscopic cholecystectomy with cholangiograms Description of Surgical Findings:: Timeout informed consent was obtained. 65-year-old female was taken to the operating placement table underwent general endotracheal intubation esthesia. Ancef 2 g given intravenously. The abdomen was sterilely prepped and draped. 0.5% Marcaine was used as a local anesthetic. Throughout the procedure total 30 cc was used. Skin sites are be anesthetized. A vertical infraumbilical incision was created holding sutures of 0 Vicryl placed varies needle inserted saline drop test performed the abdomen was insufflated with CO2 to a pressure of 10 mmHg pressure. 10 mm trocar was inserted. 10 mm laparoscope inserted. No trocar injuries. On direct visitation 5 mm ports were placed in the epigastric and abdomen right upper quadrant. The gallbladder was distracted. Blunt dissection was instituted at the infundibulum until clearly the cystic duct cystic artery were identified. Hem-o-juanito clip was placed on the cystic duct stump and incision and cystic duct and through a 14-gauge Angiocath cholangiogram catheter was inserted. Fluoroscopically controlled cholangiograms were obtained demonstrating normal ductal anatomy and free flow into the duodenum. The cholangiogram catheter was removed and additional hemolock clip was placed on the cystic duct stump prior to transecting it. The cystic artery was clipped twice proximally prior to transecting it. The gallbladder is tediously dissected free from the liver bed. Complete hemostasis was intact. Very small opening in the gallbladder demonstrated very small amount of bile which was rapidly controlled and collected. There was no stone spillage. That was controlled. The gallbladder was released from the liver bed immediately placed on the retrieval bag. The right upper quadrant was irrigated and aspirated free of excess fluid. The live r bed was inspected and was noted to be completely hemostatic. The abdomen was allowed to deflate through an antiviral valve. The gallbladder was removed at the umbilicus. The fascia at the umbilicus approximated with interrupted 0 Vicryl [id number] suture. Skin edges approximated opted for Monocryl subdermal stitches. Steri-Strips Telfa OpSite dressings applied. Sponge and instrument and needle counts were reported to certainly be correct. Specimen gallbladder. Drains none. Blood loss minimal. The patient was taken to the recovery area in satisfactory addition without apparent complication Devin Montgomery M.D., F.A.C.S. Surgeon: Devin Montgomery Type of Anesthesia: General and Local Anesthesiologist: Justin Dennis
[2021-04-30] MEDS: HYDROcodone Bitartrate/Apap 5/325 Tablet PO (15:43)
== END 2021-04-30 17:25 ==
LOC: SDC 09:55 → AC 09:55
PROVIDERS: Anesthesiology; PCP Internal Medicine; Referring Provider Surgery; Visit Provider Surgery
PROC: (CPT 47610; principal; 2021-04-30 11:40)
DX: K80.10 Calculus of gallbladder with chronic cholecystitis without obstruction (principal); Z79.899 Other long term (current) drug therapy; Z79.82 Long term (current) use of aspirin; K21.9 Gastro-esophageal reflux disease without esophagitis; Z87.19 Personal history of other diseases of the digestive system; Q60.0 Renal agenesis, unilateral; H91.90 Unspecified hearing loss, unspecified ear; F32.9 Major depressive disorder, single episode, unspecified; F41.9 Anxiety disorder, unspecified; D64.9 Anemia, unspecified; E07.9 Disorder of thyroid, unspecified; Z79.890 Hormone replacement therapy
CPT/HCPCS: 47563; 74300; 76000; 84443; 87086; 87088; 88304; J7120; J2405

== ENCOUNTER → 2021-05-19 10:15 | Outpatient (CLI) | payer MEDICARE, OTHER, SELFPAY | PROVIDERS: PCP Internal Medicine; Referring Provider Urology; Visit Provider Urology | DX: N39.0 Urinary tract infection, site not specified (principal) | CPT/HCPCS: 87086; 87088 ==

== ENCOUNTER → 2021-12-25 | Outpatient (CLI) | payer MEDICARE, OTHER, SELFPAY ==
[2021-12-25 15:32] LABS: Absolute Lymphocyte Count 1.51 X10^3/uL (0.83-4.51); Absolute Neutrophil Count 2.9 X10^3/uL (2.0-7.7); Basophil# 0.02 X10^3/uL; Basophil% 0.4 % (0-1); Eosinophil# 0.15 X10^3/uL; Hematocrit 40.8 % (37-47); Hemoglobin 14.2 g/dL (12.0-15.0); Lymphocyte # 1.51 X10^3/ul (0.83-4.51); Lymphocyte % 30.1 % (19-41); Mean Corp Hgb Conc 34.8 g/dL (32-36); Mean Corpuscular Hgb 30.9 pg (27.0-32.0); Mean Corpuscular Volume 88.9 fL (81-99); Mean Platelet Vol. 10.2 fl (6.2-12.0); Monocyte# 0.45 X10^3/uL; NRBC Flagged by Analyzer 0 % (0-5); Neutrophil # 2.86 X10^3/uL (2.7-7.7); Neutrophil % 57.1 % (47-70); Platelet Count 254 K/mm3 (150-450); RBC Distribution Width CV 12.1 % (11.6-14.6); RBC Distribution Width SD 39.5 fl (35.1-43.9); Red Blood Count 4.59 M/mm3 (4.2-5.4)
[2021-12-25 15:58] LABS: Hemoglobin A1c 5.3 % (3.8-5.6)
[2021-12-25 16:41] LABS: Vitamin B12 724 pg/mL (211-911); Vitamin D,25 Hydroxy 63.5 ng/mL
[2021-12-25 17:10] LABS: Progesterone Level < 0.21 ng/mL (See Comment)
[2021-12-25 17:34] LABS: ALB/GLOB Ratio 1.1 RATIO (0.9-2.4); AST(SGOT) 22 U/L (15-37); Alanine Aminotransfer ALT/SGPT 45 U/L (13-56); Albumin, Serum 3.9 g/dL (3.2-5.0); Alkaline Phosphatase 57 U/L (45-117); Anion Gap 8 (5-15); BUN 15 mg/dL (7-18); BUN/Creat Ratio 20.1 RATIO (10-20); Calcium,Total 9.7 mg/dL (8.5-10.1); Chloride 104 mmol/L (98-107); Cholesterol 255 mg/dL (200); Creatinine, Serum 0.74 mg/dL (0.55-1.02); EST Glomerular Filtration Rate 83 mL/min (>60); Est Glom Filt Rate - Afr Amer 100 mL/min (>60); Estradiol 13.8 pg/mL; Ferritin 33 ng/mL (8-252); Folates, (Folic Acid) > 100.00 ng/mL (3.1-55.4); Globulin 3.4 g/dL (2.2-4.2); Glucose 88 mg/dL (74-106); High Density Lipoprotein 62 mg/dL; Iron 90 ug/dL (50-170); Iron Binding Capacity,Total 380 ug/dL (250-450); PERCENT IRON SATURATION 23.7 % (15.0-55.0); Potassium 3.3 mmol/L (3.5-5.1); Protein, Total 7.3 g/dL (6.4-8.2); Sodium Level 138 mmol/L (136-145); Triglycerides 185 mg/dL; Very Low Density Lipoprotein 37 mg/dL (5-40)
[2021-12-30 10:09] LABS: Testosterone, % Free 1.46 % (0.50-2.80); Testosterone, Free 0.32 ng/dL (0.10-0.85); Testosterone, Total 22 ng/dL (3-67)
[2021-12-30 16:42] LABS: DHEA Sulfate 47.2 ug/dL (20.4-186.6)
== END | disposition home or self-care (01) ==
PROVIDERS: PCP Internal Medicine; Visit Provider Nurse Practitioner Family
DX: R53.83 Other fatigue (principal); N95.1 Menopausal and female climacteric states; R74.01 Elevation of levels of liver transaminase levels; E55.9 Vitamin D deficiency, unspecified; Z79.899 Other long term (current) drug therapy
CPT/HCPCS: 36415; 80053; 80061; 82306; 82607; 82627; 82670; 82728; 82746; 83036; 83540; 83550; 84144; 84402; 84403; 85025; 82626

== ENCOUNTER → 2022-02-23 | Outpatient (REF) | payer OTHER, SELFPAY ==
[2022-02-23 17:59] LABS: Ferritin 57 ng/mL (8-252); T4 Free Direct 1.08 ng/dL (0.76-1.46)
== END ==
LOC: LABSPEC 16:55
PROVIDERS: PCP Internal Medicine; Visit Provider Nurse Practitioner Family
DX: E03.9 Hypothyroidism, unspecified (principal); R79.89 Other specified abnormal findings of blood chemistry
CPT/HCPCS: 82728; 84439; 84443

== ENCOUNTER → 2022-04-06 | Outpatient (REF) | payer OTHER, SELFPAY ==
[2022-04-06 16:12] LABS: Ferritin 70 ng/mL (8-252); Free T3 3.3 pg/mL (2.18-3.98); Iron 80 ug/dL (50-170); T4 Free Direct 1.26 ng/dL (0.76-1.46); Thyroid Stim Hormone (TSH) 0.02 uIU/mL (0.358-3.74)
== END ==
LOC: LABSPEC 15:11
PROVIDERS: PCP Internal Medicine; Visit Provider Nurse Practitioner Family
DX: E03.9 Hypothyroidism, unspecified (principal); D50.9 Iron deficiency anemia, unspecified
CPT/HCPCS: 82728; 83540; 84439; 84443; 84481

== ENCOUNTER → 2022-06-11 | Outpatient (CLI) | payer MEDICARE, SELFPAY ==
[2022-06-11 15:31] LABS: Absolute Lymphocyte Count 1.29 X10^3/uL (0.83-4.51); Absolute Neutrophil Count 4.2 X10^3/uL (2.0-7.7); Basophil# 0.03 X10^3/uL; Basophil% 0.5 % (0-1); Eosinophil# 0.18 X10^3/uL; Eosinophils% 2.9 % (0-5); Hematocrit 39.2 % (37-47); Hemoglobin 13.3 g/dL (12.0-15.0); Lymphocyte # 1.29 X10^3/ul (0.83-4.51); Lymphocyte % 20.8 % (19-41); Mean Corp Hgb Conc 33.9 g/dL (32-36); Mean Corpuscular Hgb 30.3 pg (27.0-32.0); Mean Corpuscular Volume 89.3 fL (81-99); Mean Platelet Vol. 9.9 fl (6.2-12.0); Monocyte# 0.53 X10^3/uL; Monocyte% 8.5 % (0-10); NRBC Flagged by Analyzer 0 % (0-5); Neutrophil # 4.15 X10^3/uL (2.7-7.7); Neutrophil % 66.8 % (47-70); Platelet Count 267 K/mm3 (150-450); RBC Distribution Width CV 12.7 % (11.6-14.6); Red Blood Count 4.39 M/mm3 (4.2-5.4); White Blood Count 6.2 K/mm3 (4.4-11.0)
[2022-06-11 15:43] LABS: Progesterone Level 5.53 ng/mL (See Comment)
[2022-06-11 15:50] LABS: ALB/GLOB Ratio 1.3 RATIO (0.9-2.4); AST(SGOT) 18 U/L (15-37); Alanine Aminotransfer ALT/SGPT 35 U/L (13-56); Albumin, Serum 3.9 g/dL (3.2-5.0); Alkaline Phosphatase 67 U/L (45-117); Anion Gap 10 (5-15); BUN 15 mg/dL (7-18); BUN/Creat Ratio 19.3 RATIO (10-20); Calcium,Total 9.5 mg/dL (8.5-10.1); Chloride 105 mmol/L (98-107); Creatinine, Serum 0.78 mg/dL (0.55-1.02); EST Glomerular Filtration Rate 79 mL/min (>60); Est Glom Filt Rate - Afr Amer 95 mL/min (>60); Estradiol 30.4 pg/mL; Globulin 2.9 g/dL (2.2-4.2); Glucose 95 mg/dL (74-106); Potassium 3.8 mmol/L (3.5-5.1); Protein, Total 6.8 g/dL (6.4-8.2); Sodium Level 141 mmol/L (136-145); T4 Free Direct 1.15 ng/dL (0.76-1.46); Thyroid Stim Hormone (TSH) 0.09 uIU/mL (0.358-3.74)
== END | disposition home or self-care (01) ==
PROVIDERS: PCP Internal Medicine; Visit Provider Nurse Practitioner Family
DX: E03.9 Hypothyroidism, unspecified (principal); E28.39 Other primary ovarian failure
CPT/HCPCS: 80053; 82670; 84144; 84403; 84439; 84443; 84481; 85025

== ENCOUNTER → 2022-12-23 | Outpatient (CLI) | payer MEDICARE, SELFPAY ==
[2022-12-23 18:27] LABS: ALB/GLOB Ratio 1.5 RATIO (0.9-2.4); AST(SGOT) 32 U/L (15-37); Alanine Aminotransfer ALT/SGPT 50 U/L (13-56); Albumin, Serum 4.3 g/dL (3.2-5.0); Alkaline Phosphatase 63 U/L (45-117); Anion Gap 8 (5-15); BUN 19 mg/dL (7-18); BUN/Creat Ratio 19.7 RATIO (10-20); Calcium,Total 9.7 mg/dL (8.5-10.1); Chloride 105 mmol/L (98-107); Creatinine, Serum 0.96 mg/dL (0.55-1.02); EST Glomerular Filtration Rate 61 mL/min (>60); Est Glom Filt Rate - Afr Amer 74 mL/min (>60); Globulin 2.8 g/dL (2.2-4.2); Glucose 88 mg/dL (74-106); Potassium 3.7 mmol/L (3.5-5.1); Protein, Total 7.1 g/dL (6.4-8.2); Sodium Level 140 mmol/L (136-145); T4 Free Direct 1.07 ng/dL (0.76-1.46); Thyroid Stim Hormone (TSH) 0.51 uIU/mL (0.358-3.74)
== END | disposition home or self-care (01) ==
PROVIDERS: Visit Provider Nurse Practitioner Family
DX: R53.82 Chronic fatigue, unspecified (principal); E03.9 Hypothyroidism, unspecified
CPT/HCPCS: 80053; 84439; 84443; 84481

== ENCOUNTER → 2023-04-01 | Outpatient (CLI) | payer MEDICARE, SELFPAY ==
[2023-04-01 13:43] LABS: Absolute Lymphocyte Count 1.65 X10^3/uL (0.83-4.51); Absolute Neutrophil Count 3.4 X10^3/uL (2.0-7.7); Basophil# 0.03 X10^3/uL; Basophil% 0.5 % (0-1); Eosinophil# 0.16 X10^3/uL; Eosinophils% 2.8 % (0-5); Hematocrit 43.5 % (37-47); Hemoglobin 14.4 g/dL (12.0-15.0); Lymphocyte # 1.65 X10^3/ul (0.83-4.51); Lymphocyte % 28.9 % (19-41); Mean Corp Hgb Conc 33.1 g/dL (32-36); Mean Corpuscular Hgb 30.6 pg (27.0-32.0); Mean Corpuscular Volume 92.6 fL (81-99); Mean Platelet Vol. 10.1 fl (6.2-12.0); Monocyte# 0.42 X10^3/uL; Monocyte% 7.4 % (0-10); NRBC Flagged by Analyzer 0 % (0-5); Neutrophil # 3.43 X10^3/uL (2.7-7.7); Neutrophil % 60.2 % (47-70); Platelet Count 264 K/mm3 (150-450); RBC Distribution Width CV 11.9 % (11.6-14.6); RBC Distribution Width SD 40.6 fl (35.1-43.9); White Blood Count 5.7 K/mm3 (4.4-11.0)
[2023-04-01 13:56] LABS: Progesterone Level 6.55 ng/mL (See Comment)
[2023-04-01 14:31] LABS: ALB/GLOB Ratio 1.3 RATIO (0.9-2.4); AST(SGOT) 20 U/L (15-37); Alanine Aminotransfer ALT/SGPT 31 U/L (13-56); Albumin, Serum 4.2 g/dL (3.2-5.0); Alkaline Phosphatase 86 U/L (45-117); Anion Gap 10 (5-15); BUN 14 mg/dL (7-18); BUN/Creat Ratio 18.3 RATIO (10-20); CPK Total, Creatine Kinase 126 U/L (26-192); Calcium,Total 9.2 mg/dL (8.5-10.1); Chloride 103 mmol/L (98-107); Creatinine, Serum 0.76 mg/dL (0.55-1.02); EST Glomerular Filtration Rate 80 mL/min (>60); Est Glom Filt Rate - Afr Amer 97 mL/min (>60); Estradiol 16.6 pg/mL; Free T3 2.5 pg/mL (2.18-3.98); Globulin 3.2 g/dL (2.2-4.2); Glucose 84 mg/dL (74-106); Potassium 3.8 mmol/L (3.5-5.1); Protein, Total 7.4 g/dL (6.4-8.2); Sodium Level 139 mmol/L (136-145); T4 Free Direct 0.73 ng/dL (0.76-1.46); Thyroid Stim Hormone (TSH) 0.71 uIU/mL (0.358-3.74)
[2023-04-03 04:07] LABS: DHEA Sulfate 27.5 ug/dL (20.4-186.6)
== END | disposition home or self-care (01) ==
LOC: LABSPEC 13:04
PROVIDERS: Referring Provider Nurse Practitioner Family; Visit Provider Nurse Practitioner Family
DX: A69.22 Other neurologic disorders in Lyme disease (principal); B60.09 Other babesiosis; R53.82 Chronic fatigue, unspecified; N39.0 Urinary tract infection, site not specified; E28.9 Ovarian dysfunction, unspecified; E03.9 Hypothyroidism, unspecified; M79.606 Pain in leg, unspecified
CPT/HCPCS: 80053; 82550; 82627; 82670; 84144; 84403; 84439; 84443; 84481; 85025; 82626

== ENCOUNTER 2023-08-02 15:28 | Outpatient (CLI) | payer MEDICARE, OTHER, SELFPAY ==
[2023-08-02 16:47] LABS: Absolute Lymphocyte Count 1.48 X10^3/uL (0.83-4.51); Absolute Neutrophil Count 4.1 X10^3/uL (2.0-7.7); Basophil# 0.04 X10^3/uL; Basophil% 0.6 % (0-1); Eosinophil# 0.14 X10^3/uL; Eosinophils% 2.2 % (0-5); Hematocrit 43.9 % (37-47); Hemoglobin 14.6 g/dL (12.0-15.0); Lymphocyte # 1.48 X10^3/ul (0.83-4.51); Lymphocyte % 23.8 % (19-41); Mean Corp Hgb Conc 33.3 g/dL (32-36); Mean Corpuscular Hgb 30.6 pg (27.0-32.0); Mean Platelet Vol. 9.9 fl (6.2-12.0); Monocyte# 0.47 X10^3/uL; Monocyte% 7.5 % (0-10); NRBC Flagged by Analyzer 0 % (0-5); Neutrophil # 4.07 X10^3/uL (2.7-7.7); Neutrophil % 65.4 % (47-70); Platelet Count 293 K/mm3 (150-450); RBC Distribution Width CV 12.6 % (11.6-14.6); RBC Distribution Width SD 42.7 fl (35.1-43.9); Red Blood Count 4.77 M/mm3 (4.2-5.4); White Blood Count 6.2 K/mm3 (4.4-11.0)
[2023-08-02 17:45] LABS: Vitamin D,25 Hydroxy 59.8 ng/mL
[2023-08-02 18:31] LABS: ALB/GLOB Ratio 1.1 RATIO (0.9-2.4); AST(SGOT) 23 U/L (15-37); Alanine Aminotransfer ALT/SGPT 26 U/L (13-56); Albumin, Serum 3.8 g/dL (3.2-5.0); Alkaline Phosphatase 94 U/L (45-117); Anion Gap 8 (5-15); BUN 15 mg/dL (7-18); BUN/Creat Ratio 18.6 RATIO (10-20); Chloride 105 mmol/L (98-107); EST Glomerular Filtration Rate 75 mL/min (>60); Est Glom Filt Rate - Afr Amer 91 mL/min (>60); Estradiol 11.8 pg/mL; Ferritin 33 ng/mL (8-252); Free T3 2.8 pg/mL (2.18-3.98); Globulin 3.5 g/dL (2.2-4.2); Glucose 92 mg/dL (74-106); Potassium 3.8 mmol/L (3.5-5.1); Protein, Total 7.3 g/dL (6.4-8.2); Sodium Level 137 mmol/L (136-145); T4 Free Direct 0.87 ng/dL (0.76-1.46)
[2023-08-04 04:08] LABS: DHEA Sulfate 35.8 ug/dL (20.4-186.6)
== END 2023-08-02 23:59 | disposition home or self-care (01) ==
PROVIDERS: Visit Provider Nurse Practitioner Family
DX: F32.A Depression, unspecified (principal); G89.29 Other chronic pain; E28.9 Ovarian dysfunction, unspecified; E61.7 Deficiency of multiple nutrient elements; L65.9 Nonscarring hair loss, unspecified; E55.9 Vitamin D deficiency, unspecified
CPT/HCPCS: 36415; 80053; 82306; 82627; 82670; 82728; 84144; 84403; 84439; 84481; 85025; 82626

== ENCOUNTER → 2023-10-19 | Outpatient (CLI) | payer MEDICARE, OTHER, SELFPAY ==
[2023-10-19 12:40] LABS: Absolute Neutrophil Count 3.5 X10^3/uL (2.0-7.7); Basophil# 0.04 X10^3/uL; Basophil% 0.7 % (0-1); Eosinophil# 0.11 X10^3/uL; Hematocrit 43.1 % (37-47); Hemoglobin 14.7 g/dL (12.0-15.0); Lymphocyte % 26.9 % (19-41); Mean Corp Hgb Conc 34.1 g/dL (32-36); Mean Corpuscular Volume 90.9 fL (81-99); Mean Platelet Vol. 10.6 fl (6.2-12.0); Monocyte% 7.2 % (0-10); NRBC Flagged by Analyzer 0 % (0-5); Neutrophil % 62.8 % (47-70); Platelet Count 269 K/mm3 (150-450); RBC Distribution Width CV 12.4 % (11.6-14.6); Red Blood Count 4.74 M/mm3 (4.2-5.4); White Blood Count 5.6 K/mm3 (4.4-11.0)
[2023-10-19 13:09] LABS: Progesterone Level 3.59 ng/mL (See Comment)
[2023-10-19 14:01] LABS: ALB/GLOB Ratio 1.5 RATIO (0.9-2.4); AST(SGOT) 21 U/L (15-37); Alanine Aminotransfer ALT/SGPT 31 U/L (13-56); Albumin, Serum 4.2 g/dL (3.2-5.0); Alkaline Phosphatase 83 U/L (45-117); Anion Gap 11 (5-15); BUN 14 mg/dL (7-18); BUN/Creat Ratio 16.1 RATIO (10-20); Calcium,Total 9.6 mg/dL (8.5-10.1); Chloride 106 mmol/L (98-107); Creatinine, Serum 0.87 mg/dL (0.55-1.02); EST Glomerular Filtration Rate 69 mL/min (>60); Est Glom Filt Rate - Afr Amer 83 mL/min (>60); Estradiol 21.8 pg/mL; Free T3 2.8 pg/mL (2.18-3.98); Globulin 2.8 g/dL (2.2-4.2); Glucose 97 mg/dL (74-106); Potassium 4.7 mmol/L (3.5-5.1); Sodium Level 139 mmol/L (136-145); T4 Free Direct 0.82 ng/dL (0.76-1.46); Thyroid Stim Hormone (TSH) 0.64 uIU/mL (0.358-3.74)
[2023-10-20 04:08] LABS: DHEA Sulfate 27.6 ug/dL (20.4-186.6)
== END | disposition home or self-care (01) ==
LOC: LABSPEC 12:20
PROVIDERS: Referring Provider Nurse Practitioner Family; Visit Provider Nurse Practitioner Family
DX: F32.A Depression, unspecified (principal); R53.82 Chronic fatigue, unspecified; G89.29 Other chronic pain; E28.9 Ovarian dysfunction, unspecified; E61.7 Deficiency of multiple nutrient elements
CPT/HCPCS: 80053; 82627; 82670; 84144; 84403; 84439; 84443; 84481; 85025; 82626

== ENCOUNTER 2023-11-19 08:26 | Day surgery (SDC) | payer MEDICARE, OTHER, SELFPAY ==
[2023-11-19 08:53] VITALS: BP 122/77; PULSE 79; RESP 16; TEMP 36.6; O2SAT 96; BMI 33.3
[2023-11-19] MEDS: Lactated Ringers 1,000 ML 15 ML IV (09:09)
--- NOTE | 2023-11-19 09:12 | HP.PCM_ITS ---
History and Physical Date of Admission: 11/19/23 Visit Reasons: EGD FOR STOMACH POLYP Chief Complaint: EGD Consult Utilization Specialist Required: No Is patient in pain?: Yes Allergies Sulfa (Sulfonamide Antibiotics) Allergy (Verified 10/14/23 14:13) Otherzoster vaccine live [From Zostavax (PF)] Allergy (Verified 10/14/23 14:13) Other Medications aspirin 81 mg chewable tablet 81 mg PO MOWEFR 02/24/14 [History Confirmed 10/14/23] bupropion HCl 75 mg tablet (Wellbutrin) 100 mg PO DAILY mood 02/24/14 [History Confirmed 10/14/23] hydrochlorothiazide 25 mg tablet 25 mg PO DAILY 02/24/14 [History Confirmed 10/14/23] ferrous sulfate 325 mg (65 mg iron) tablet 325 mg PO DAILY 11/15/20 [History Confirmed 10/14/23] losartan 50 mg tablet 50 mg PO DAILY 11/15/20 [History Confirmed 10/14/23] multivitamin with minerals 1 each PO DAILY 11/15/20 [History Confirmed 10/14/23] alpha lipoic acid 200 mg capsule 200 mg PO DAILY supplement 03/19/21 [History Confirmed 10/14/23] ascorbic acid (vitamin C) 1,000 mg capsule 1 g PO DAILY 10/14/23 [History Confirmed 10/14/23] cholecalciferol (vitamin D3) 50 mcg (2,000 unit) capsule 2,000 unit PO DAILY supplement 10/14/23 [History Confirmed 10/14/23] dexlansoprazole 60 mg capsule,biphase delayed release (Dexilant) 60 mg PO DAILY 10/14/23 [History Confirmed 10/14/23] famotidine 40 mg tablet 40 mg PO BID 10/14/23 [History Confirmed 10/14/23] levothyroxine 50 mcg tablet 100 mcg PO DAILY 10/14/23 [History Confirmed 10/14/23] losartan 50 mg tablet 50 mg PO DAILY 10/14/23 [History Confirmed 10/14/23] methenamine hippurate 1 gram tablet 1 g PO DAILY 10/14/23 [History Confirmed 10/14/23] potassium chloride 10 mEq capsule,extended release 10 meq PO BID 10/14/23 [History Confirmed 10/14/23] sucralfate 1 gram tablet (Carafate) 1 g PO BID 10/14/23 [History Confirmed 10/14/23] venlafaxine 75 mg tablet 75 mg PO DAILY 10/14/23 [History Confirmed 10/14/23] PFS Medical History (Updated 10/14/23 @ 14:11 by Paola Crow) Anemia Anxiety Biliary dyskinesia Cancer CPAP (continuous positive airway pressure) dependence Depression Esophageal spasm Gastric intestinal metaplasia Gastric reflux GERD (gastroesophageal reflux disease) Hearing loss High cholesterol History of diverticulitis History of IBS History of renal disease History of stress test Injury of head and neck Non-smoker Post-menopausal Thyroid disease Wears glasses Surgical History (Updated 10/14/23 @ 14:12 by Paola Crow) History of 2 sections History of bunionectomy History of cardiac catheterization History of colonoscopy (~10/2020) History of dilatation and curettage History of esophagogastroduodenoscopy History of laparoscopy History of left inguinal hernia repair History of tonsillectomy and adenoidectomy S/P laparoscopic cholecystectomy Family History Father Diabetes Heart disease Cancer skin Hypertension CVA (cerebral vascular accident)Mother HypertensionBrother Cancer lymphoma Social History Smoking Status: Never smoker HPI HPI HPI: 68-year-old female presents for surgical consultation to pursue repeat esophagogastroduodenoscopy with gastric mapping biopsies. A request is for biopsies from 6 sounds of the stomach to include the antrum greater curvature and antrum lesser curvature and gastric angularis and body greater curvature and body lesser curvature and fundus in addition to any visible lesions. A [facility] note of March suggested inflammation stomach with intestinal metaplasia and a hyperplastic stomach polyp without cellular changes of dysplasia. H. pylori was negative. It is of additional note that she has a history of hepatic steatosis. Recent medications include pantoprazole 40 mg daily and famotidine 40 mg daily and Carafate 1 g twice daily. The patient's most recent upper endoscopy was performed at [facility] March 25, 2023. The patient states that she had her Protonix increased to 40 mg twice daily but that was not effective in treatment of nausea and right upper quadrant pain and severe burning in her throat. She was changed to Dexilant and Carafate and she restarted on her own colestyramine. The burning terrible sensation in her throat is worse in the morning. In the recent past she has had a complicated history of antibiotics needed for dental disease and recurrent urinary tract infections and Lyme disease. She has had cholestyramine to assist her with mold. March 2023 she had a gastric emptying study which was normal. March [address] showing a left liver cyst. As of October 04, 2023 her calprotectin fecal quantitative level was 263 which is elevated. Suggesting colonic inflammation. She had a pancreas elastase fecal analysis with results greater than 800 and is felt to be normal. Her IgA level is 40 which was below normal limits of 70. Her previous upper endoscopy that was performed at [facility] March 25, 2023 suggested a small hiatal hernia and a patulous lower esophageal sphincter. EG junction was 36 cm and felt to be slightly irregular. Multiple fundic gland polyps were identified. The duodenal bulb and second portion of the duodenum were normal. On February 04 the patient had a FibroScan showing fatty liver disease. On January 08 she had a serum qualitative H. pylori which was negative. She had an alpha-2 microglobulin level which was 235 normal and haptoglobin 106 normal and an apolipoprotein A1 178 normal and a total bilirubin of 0.2 normal and a GGT of 59 slightly high and an ALT of 23 normal. Hepatitis A IgG was negative. Hepatitis B surface antibody qualitative negative. Hepatitis B surface antibody quantitative less than 8. April 05, 2023 she had a normal gastric emptying study. April 09, [address] scan showing no acute findings. April 05, 2023 celiac screening with reflex demonstrated trans glutaminase IgA ABS at less than 2 which is negative. She had a Gliadin Ab, IgA which is 1 which is negative She denies any bright red blood per rectum or melena. She has had no unexpected weight loss. ROS General General: No weight change, appetite, fatigue, colon cancer, breast cancer or weakness HEENT HEENT: No difficulty swallowing, eye injury, eye surgery, swollen glands or hoarseness Endo Endocrine: Yes thyroid disease; No diabetes mellitus, thyroid cancer, Hair loss, heat intolerance or cold intolerance Skin Skin: No rash or changing moles Breast Breast: No left breast lump, right breast lump, nipple discharge, breast pain, abnormal mammogram, abnormal US or breast enlargement Musc Musculoskeletal: Yes back problems; No arthritis, rheumatoid arthritis, gout or joint pain Cardio Cardiovascular: Yes high blood pressure; No murmur, pacemaker, heart disease, atrial fibrillation, heart attack, heart stent, palpitations, shortness of breat with exertion or chest pain Psych Psychiatric: Yes depression; No anxiety or hearing voices Resp Respiratory: No shortness of breath, Yes sleep apnea, Yes cough, No COPD, No asthma, No emphysema and No wheezing Gastro Gastrointestinal: Yes abdominal pain, Yes nausea or vomiting, No diarrhea, Yes constipation, No blood in stool, Yes acid reflux, Yes hemorrhoids, No ulcers, No gallbladder problem and No black,tarry stools Louis Hematologic: No blood thinners, No blood disorders, No bleeding, No anemia and No blood clots Neuro Neurologic: No system reviewed and no additional complaints, except as documented, No as per HPI, No abnormal gait, No abnormal hearing, No abnormal movements, No abnormal speech, No behavioral changes, No burning sensations, No confusion, No convulsions, No disequilibrium, No dizziness, No localized weakness, No frequent falls, No headache(s), No lack of coordination, No loss of vision, No memory loss, No numbness, No other visual disturbances, No radicular pain, No restless legs, No sensory deficit, No syncope, No tingling, No tremor(s), No weakness and No other Exam Const General: cooperative, comfortable and no acute distress Nutritional Appearance: obese Orientation: alert and awake [facility] Head: normal to inspection Eyes General: appearance normal, both eyes and all related structures Neck Neck: normal visual inspection Resp Effort & Inspection: normal respiratory effort Auscultation: clear to auscultation bilaterally Cardio Rate: regular rate Rhythm: regular rhythm GI Inspection: normal to inspection Palpation: soft and no hepatosplenomegaly Auscultation: normal bowel sounds Musc Cervical Spine: normal cervical lordosis Skin General: no rashes or lesions noted Neuro General: patient alert, patient awake and patient oriented x3 Extrem General: no calf tenderness Psych Appearance: grossly normal Assessment and Plan Assessment and Plan (1) Gastric intestinal metaplasia: Status: Acute Plan: 68-year-old female with somewhat of a complex presentation. Signs and symptoms suggest hiatal hernia with patulous EG junction and severe reflux symptoms. She does not particularly have colon symptoms but she has elevated inflammatory markers. It is being recommended that she have a EGD with gastric mapping because of previous metaplasia and escalation of upper GI symptoms. I would anticipate an EGD. Careful duodenal inspection with biopsies with gastric mapping as outlined above with careful inspection sampling of the EG junction and mid esophagus. Because of her very severe reflux symptoms anticipate additionally placing a Cortez pH probe. I furthermore discussed with her the potential recommendations for future esophageal manometric studies. Finally I briefly discussed potential surgical techniques for reflux but suggested to her that had her current body weight of 209 and a BMI of 35 that any and all effort that she could put into weight loss may help ameliorate many of her symptoms. She is aware and concurs. The patient's previously had a very difficult colonoscopy. Would need to utilize an adult scope. Would make an attempt to intubate the terminal ileum and obtain random biopsies to help decipher her elevated calprotectin fecal quantitative level. We will utilize monitored anesthesia care. I appreciate the opportunity of assisting with her surgical care Copy: BEATRICE Cunningham M.D., F.A.C.S I have examined the patient and the H&P has been reviewed. There are no clinical changes since date of exam. Devin Montgomery M.D., F.A.C.S.
--- NOTE | 2023-11-19 09:30 | EGD_PTH ---
PATIENT: SAMIR BAUTISTA LOC: EN U#:[id number] AGE/SX: 68/F ROOM: RE11/19/[address]: Dr. Devin Montgomery MD : 1955 BED: DIS: 11/19/2023 SPEC #: [id number] RECD: 11/19/23 12:23 STATUS: LAURA JACEY #: [id number] JANET: 11/19/23 09:[address]: Devin Montgomery DEPT: SURGICAL PATHOLOGY RECD BY: Cecilia Andrew ENTERED: 11/19/23 13:38 SP TYPE: EGD BIOPSY OTHR DR: Dr. Patricia Wilkins MD Tissues: A - Duodenum, NOS B - Gastric mucous membrane C - Gastric mucous membrane D - Stomach, NOS E - Stomach, NOS F - Stomach, NOS G - Gastric fundus H - Esophagus, NOS I - Esophagus, NOS J - Stomach, NOS K - Ileum, NOS L - COLON BIOPSY Procedures: Surgery Specimen Level IV HEADER OPERATION: Colonoscopy with biopsy, EGD with PH probe, Gastric mapping PRE-OP DIAGNOSIS: Gastric intestinal metaplasia TISSUE SUBMITTED: A. Duodenum biopsy rule out celiac, B- Antrum lesser curvature biopsy, C-Antrum greater curvature biopsy, D- Angularis biopsy, E- Gastric body body lesser curvature, F- Gastric body greater curvature biopsy, G- Fundus biopsy, H- Distal esophagus biopsy, I- Mid esophagus biopsy, J- Greater curvature gastric polyp x2, K- Terminal ileum biopsy, L- Random colon biopsy MICROSCOPIC DIAGNOSIS A. Duodenum, biopsy: No pathologic change. B. Antrum, lesser curvature, biopsy: Mild chronic gastritis. C. Antrum, greater curvature, biopsy: Mild chronic gastritis. D. Angularis, biopsy: Mild chronic gastritis. E. Gastric body, body lesser curvature, biopsy: Mild chronic gastritis. F. Gastric body, greater curvature, biopsy: Mild chronic gastritis. G. Gastric fundus, biopsy: Mild chronic gastritis. H. Distal esophagus, biopsy: Fragments of benign squamous mucosa. No evidence of inflammation. No evidence of goblet cell metaplasia. I. Mid esophagus, biopsy: Fragments of benign squamous mucosa. No evidence of inflammation. J. Greater curvature gastric polyp, biopsy: Benign gastric polyp with features of hyperplastic and fundic gland polyp. K. Terminal ileum, biopsy: No pathologic change. L. Colon, random biopsy: Melanosis coli. ESTEBAN/ 11/23/2023 COMMENT A&B, The results of immunohistochemistry for Helicobacter pylori will be reported separately ([id number]). MICROSCOPIC DESCRIPTION Slides are reviewed. GROSS DESCRIPTION A. Received in fixative is one container labeled with the patient's name and designated Duodenum biopsy. The specimen consists of one irregular fragment of light agudelo soft tissue that measures 04 x 0.3 x 0.1 cm. The specimen is totally submitted in one cassette. B. Received in fixative is one container labeled with the patient's name and designated Antrum lesser curvature biopsy. The specimen consists of one irregular fragment of light agudelo soft tissue that measures 0.3 x 0.3 x 0.1 cm. The specimen is totally submitted in one cassette. C. Received in fixative is one container labeled with the patient's name and designated Antrum greater curvature biopsy. The specimen consists of one irregular fragment of light agudelo soft tissue that measures 0.5 x 0.3 x 0.1 cm. The specimen is totally submitted in one cassette. D. Received in fixative is one container labeled with the patient's name and designated Angularis biopsy. The specimen consists of one irregular fragment of light agudelo soft tissue that measures 0.4 x 0.3 x 0.1 cm. The specimen is totally submitted in one cassette. E. Received in fixative is one container labeled with the patient's name and designated Gastric body lesser curvature biopsy. The specimen consists of one irregular fragment of light agudelo soft tissue that measures 0.4 x 0.3 x 0.1 cm. The specimen is totally submitted in one cassette. F. Received in fixative is one container labeled with the patient's name and designated Gastric body greater curvature biopsy. The specimen consists of one irregular fragment of light agudelo soft tissue that measures 0.5 x 0.3 x 0.1 cm. The specimen is totally submitted in one cassette. G. Received in fixative is one container labeled with the patient's name and designated Fundus biopsy. one irregular fragment of light agudelo soft tissue that measures 0.3 x 0.3 x 0.1 cm. The specimen is totally submitted in one cassette. H. Received in fixative is one container labeled with the patient's name and designated Distal esophagus biopsy. The specimen consists of one irregular fragment of light agudelo soft tissue that measures 0.5 x 0.3 x 0.1 cm. The specimen is totally submitted in one cassette. I. Received in fixative is one container labeled with the patient's name and designated Mid esophagus biopsy. The specimen consists of one irregular fragment of light agudelo soft tissue that measures 0.5 x 0.3 x 0.1 cm. The specimen is totally submitted in one cassette. J. Received in fixative is one container labeled with the patient's name and designated Greater curvature gastric polyps x2. The specimen consists of two polyps measuring 0.8 x 0.5 x 0.2cm and 0.8 x 0.5 x 0.2cm . Multiple smaller fragments of tissue are also noted measuring in aggregate 0.5 x 0.3 x 0.1cm. The entire specimen is submitted in one cassette. K. Received in fixative is one container labeled with the patient's name and designated Terminal ileum biopsy. The specimen consists of one irregular fragment of light agudelo soft tissue that measures 0.5 x 0.3 x 0.1 cm. The specimen is totally submitted in one cassette. L. Received in fixative is one container labeled with the patient's name and designated Random colon biopsy. The specimen consists of multiple irregular fragments of light agudelo soft tissue that in aggregate measure 2.0 x 0.3 x 0.1 cm. The specimen is totally submitted in one cassette. JAREK/ 11/19/2023 TC:3 CPT: 87638i32,95592
--- NOTE | 2023-11-19 09:30 | IMM_PTH ---
PATIENT: SAMIR BAUTISTA LOC: EN U#:[id number] AGE/SX: 68/F ROOM: RE11/19/[address]: Dr. Devin Montgomery MD : 1955 BED: DIS: 11/19/2023 SPEC #: [id number] RECD: 11/19/23 13:18 STATUS: LAURA REAlesia #: [id number] JANET: 11/19/23 09:[address]: Devin Montgomery DEPT: IMMUNOHISTOCHEMISTRY RECD BY: Robert Arreguin ENTERED: 11/19/23 13:19 SP TYPE: IMMUNO OTHR DR: Dr. Patricia Wilkins MD Tissues: B - Stomach, NOS C - Stomach, NOS Procedures: H Pylori (initial) PHYSICIAN & INSTITUTION [place] [id number] SPECIMEN INFORMATION: Tissue Source: B- Antrum lesser curvature, C- Antrum greater curvature Clinical Info: Gastric intestinal metaplasia Specimen Number: [id number] B,C CPT code: 99541 METHODOLOGY: Deparaffinized sections of prefer/formalin-fixed tissue or PAP/DQ stained slides are incubated with monoclonal/polyclonal antibodies/oligonucleotide probes. Localization is made via biotin free immunoperoxidase method. Appropriate controls are performed and reacted as expected. Results on target cell population are indicated in the following table: RESULTS: ANTIBODY / CLONE RESULT Block B H Pylori (polyclonal) negative Block C H Pylori (polyclonal) negative These tests were developed and their performance characteristics determined by [facility]. They may not have been cleared or approved by the U.S. Food and Drug Administration. The FDA has determined that such clearance or approval is not necessary. The above immunohistochemical/dualISH markers are ordered and reviewed by the Pathologist. INTERPRETATION: B. Antrum lesser curvature, biopsy: Negative for Helicobacter pylori organisms. C. Antrum greater curvature, biopsy: Negative for Helicobacter pylori organisms. ESTEBAN/ 11/23/2023
[2023-11-19 11:10] VITALS: BP 108/71; PULSE 74; RESP 16; TEMP 36.9; O2SAT 96
[2023-11-19 11:15] VITALS: BP 124/80; PULSE 77; RESP 16; O2SAT 99
--- NOTE | 2023-11-19 11:16 | OP.CCLET_ITS ---
11/19/2023 Patricia Wilkins [address] [id number] Re : Upper GI endoscopy procedure for Ana Mejia Dear Dr. Wilkins This procedure was performed on Sunday, November 19, 2023. My impressions and recommendations are as follows: Impressions : - Reflux esophagitis with no bleeding. Biopsied. - Normal middle third of esophagus. Biopsied. - Small hiatal hernia. - Multiple gastric polyps. Resected and retrieved. - Normal examined duodenum. Biopsied. - Biopsies were taken with a cold forceps for histology in the gastric fundus, on the greater curvature of the gastric body, on the lesser curvature of the gastric body, on the greater curvature of the stomach, on the lesser curvature of the stomach, on the greater curvature of the gastric antrum and on the lesser curvature of the gastric antrum. - The TELLEZ pH capsule was deployed. Recommendations : - Discharge patient to home. - Resume previous diet. - Continue present medications. - Return to my office in 1 week. My findings are described in the full procedure note, which is enclosed. If I can be of further assistance, please feel free to contact me at Doctor phone number(s): Work: . Sincerely, Devin Montgomery MD 11/19/2023 11:15:46 AM This report has been signed electronically.
--- NOTE | 2023-11-19 11:16 | OP.EGD_ITS ---
Patient Name: Ana Mejia Procedure Date: 11/19/2023 10:10 AM Date of : 1955 Age: 68 Procedure: Upper GI endoscopy Indications: Follow-up of intestinal metaplasia Providers: Devin Montgomery MD Referring MD: Patricia Wilkins Medicines: See the Anesthesia note for documentation of the administered medications Complications: No immediate complications. Procedure: Pre-Anesthesia Assessment: - Prior to the procedure, a History and Physical was performed, and patient medications and allergies were reviewed. The patient's tolerance of previous anesthesia was also reviewed. The risks and benefits of the procedure and the sedation options and risks were discussed with the patient. All questions were answered, and informed consent was obtained. Prior Anticoagulants: The patient has taken no anticoagulant or antiplatelet agents. ASA Grade Assessment: II - A patient with mild systemic disease. After reviewing the risks and benefits, the patient was deemed in satisfactory condition to undergo the procedure. After obtaining informed consent, the endoscope was passed under direct vision. Throughout the procedure, the patient's blood pressure, pulse, and oxygen saturations were monitored continuously. The gastroscope was introduced through the mouth, and advanced to the second part of duodenum. The upper GI endoscopy was accomplished without difficulty. The patient tolerated the procedure well. Scope In: 10:20:23 AM Scope Out: 10:40:01 AM Total Procedure Duration Time 0 hours 19 minutes 38 seconds Findings: Esophagitis with no bleeding was found 36 cm from the incisors. Biopsies were taken with a cold forceps for histology. The middle third of the esophagus was normal. Biopsies were taken with a cold forceps for histology. A small hiatal hernia was present. Two semi-pedunculated polyps with no bleeding and stigmata of recent bleeding were found in the stomach. These polyps were removed with a hot snare. Resection and retrieval were complete. The examined duodenum was normal. Biopsies were taken with a cold forceps for histology. Biopsies were taken with a cold forceps in the gastric fundus, on the greater curvature of the gastric body, on the lesser curvature of the gastric body, on the greater curvature of the stomach, on the lesser curvature of the stomach, on the greater curvature of the gastric antrum and on the lesser curvature of the gastric antrum and the angularis for histology. The TELLEZ capsule with delivery system was introduced through the mouth and advanced into the esophagus, such that the TELLEZ pH capsule was positioned 30 cm from the incisors, which was 6 cm proximal to the GE junction. The TELLEZ pH capsule was then deployed and attached to the esophageal mucosa. The delivery system was then withdrawn. Endoscopy was utilized for probe placement and diagnostic evaluation. Impression: - Reflux esophagitis with no bleeding. Biopsied. - Normal middle third of esophagus. Biopsied. - Small hiatal hernia. - Multiple gastric polyps. Resected and retrieved. - Normal examined duodenum. Biopsied. - Biopsies were taken with a cold forceps for histology in the gastric fundus, on the greater curvature of the gastric body, on the lesser curvature of the gastric body, on the greater curvature of the stomach, on the lesser curvature of the stomach, on the greater curvature of the gastric antrum and on the lesser curvature of the gastric antrum. - The TELLEZ pH capsule was deployed. Recommendation: - Discharge patient to home. - Resume previous diet. - Continue present medications. - Return to my office in 1 week. Procedure Code(s): --- Professional --- 79102, Esophagogastroduodenoscopy, flexible, transoral; with removal of tumor(s), polyp(s), or other lesion(s) by snare technique 66763, 59, Esophagogastroduodenoscopy, flexible, transoral; with biopsy, single or multiple 99415, Esophagus, gastroesophageal reflux test; with mucosal attached telemetry pH electrode placement, recording, analysis and interpretation Diagnosis Code(s): --- Professional --- K21.00, Gastro-esophageal reflux disease with esophagitis, without bleeding K44.9, Diaphragmatic hernia without obstruction or gangrene K31.7, Polyp of stomach and duodenum K31.A0, Gastric intestinal metaplasia, unspecified CPT copyright 2021 [employer]. All rights reserved. The codes documented in this report are preliminary and upon vice president of communications review may be revised to meet current compliance requirements. Devin Montgomery MD 11/19/2023 11:15:46 AM This report has been signed electronically. Number of Addenda: 0 Note Initiated On: 11/19/2023 10:10 AM
[2023-11-19 11:20] VITALS: BP 123/74; PULSE 70; RESP 16; O2SAT 97
[2023-11-19 11:25] VITALS: BP 132/72; PULSE 70; RESP 16; TEMP 36.8; O2SAT 98
--- NOTE | 2023-11-19 11:25 | OP.COLON_ITS ---
Patient Name: Ana Mejia Procedure Date: 11/19/2023 10:40 AM Date of : 1955 Age: 68 Procedure: Colonoscopy Indications: Incidental change in bowel habits noted Providers: Devin Montgomery MD Referring MD: Patricia Wilkins Medicines: See the Anesthesia note for documentation of the administered medications Patient Profile: Last Colonoscopy: October 2020. Complications: No immediate complications. Procedure: Pre-Anesthesia Assessment: - Prior to the procedure, a History and Physical was performed, and patient medications and allergies were reviewed. The patient's tolerance of previous anesthesia was also reviewed. The risks and benefits of the procedure and the sedation options and risks were discussed with the patient. All questions were answered, and informed consent was obtained. Prior Anticoagulants: The patient has taken no anticoagulant or antiplatelet agents. ASA Grade Assessment: II - A patient with mild systemic disease. After reviewing the risks and benefits, the patient was deemed in satisfactory condition to undergo the procedure. After I obtained informed consent, the scope was passed under direct vision. Throughout the procedure, the patient's blood pressure, pulse, and oxygen saturations were monitored continuously. The adult colonoscope was introduced through the anus and advanced to the cecum, identified by appendiceal orifice and ileocecal valve. The colonoscopy was performed with moderate difficulty due to the patient's body habitus. The patient tolerated the procedure well. The quality of the bowel preparation was fair. The terminal ileum, the ileocecal valve and the appendiceal orifice were photographed. Scope In: 10:47:19 AM Scope Withdrawal Time 0 hours 10 minutes 45 seconds Scope Out: 11:03:11 AM Total Procedure Duration Time 0 hours 15 minutes 52 seconds Findings: Hemorrhoids were found on perianal exam. The terminal ileum appeared normal. Biopsies were taken with a cold forceps for histology. The colon (entire examined portion) was moderately redundant. Advancing the scope required using manual pressure. A small amount of stool was found in the sigmoid colon. Biopsies for histology were taken with a cold forceps from the entire colon for evaluation of microscopic colitis. Impression: - Preparation of the colon was fair. - Hemorrhoids found on perianal exam. - The examined portion of the ileum was normal. Biopsied. - Redundant colon. - Stool in the sigmoid colon. Biopsied. Recommendation: - Discharge patient to home. - Resume previous diet. - Continue present medications. - Repeat colonoscopy in 10 years for screening purposes. - Telephone my office for pathology results in 1 week. Procedure Code(s): --- Professional --- 60639, Colonoscopy, flexible; with biopsy, single or multiple Diagnosis Code(s): --- Professional --- K64.9, Unspecified hemorrhoids Q43.8, Other specified congenital malformations of intestine CPT copyright 2021 [employer]. All rights reserved. The codes documented in this report are preliminary and upon commercial carpet installer review may be revised to meet current compliance requirements. Devin Montgomery MD 11/19/2023 11:24:59 AM This report has been signed electronically. Number of Addenda: 0 Note Initiated On: 11/19/2023 10:40 AM
--- NOTE | 2023-11-19 11:26 | OP.CCLET_ITS ---
11/19/2023 Patricia Wilkins [address] [phone] Re : Colonoscopy procedure for Ana Mejia Dear Dr. Wilkins This procedure was performed on Sunday, November 19, 2023. My impressions and recommendations are as follows: Impressions : - Preparation of the colon was fair. - Hemorrhoids found on perianal exam. - The examined portion of the ileum was normal. Biopsied. - Redundant colon. - Stool in the sigmoid colon. Biopsied. Recommendations : - Discharge patient to home. - Resume previous diet. - Continue present medications. - Repeat colonoscopy in 10 years for screening purposes. - Telephone my office for pathology results in 1 week. My findings are described in the full procedure note, which is enclosed. If I can be of further assistance, please feel free to contact me at Doctor phone number(s): Work: . Sincerely, Devin Montgomrey MD 11/19/2023 11:24:59 AM This report has been signed electronically.
== END 2023-11-19 11:54 | disposition home or self-care (01) ==
LOC: EN 08:28 → AC 08:29
PROVIDERS: PCP Internal Medicine; Referring Provider Internal Medicine; Visit Provider Surgery
PROC: 0DJD8ZZ Inspection of Lower Intestinal Tract, Via Natural or Artificial Opening Endoscopic (ICD-10-PCS; CPT 45378; principal; 2023-11-19 09:25)
DX: K31.89 Other diseases of stomach and duodenum (principal); K29.50 Unspecified chronic gastritis without bleeding; Q43.8 Other specified congenital malformations of intestine; A69.20 Lyme disease, unspecified; K63.89 Other specified diseases of intestine; K21.00 Gastro-esophageal reflux disease with esophagitis, without bleeding; K44.9 Diaphragmatic hernia without obstruction or gangrene; K31.7 Polyp of stomach and duodenum; K64.9 Unspecified hemorrhoids; F41.9 Anxiety disorder, unspecified; F32.A Depression, unspecified; E66.9 Obesity, unspecified; G47.30 Sleep apnea, unspecified; Z79.82 Long term (current) use of aspirin; Z79.899 Other long term (current) drug therapy
CPT/HCPCS: 43251; 45380; 43239; 88305; 88342; J7120; J1610; J2405

== ENCOUNTER → 2023-12-11 | Outpatient (CLI) | payer MEDICARE, OTHER, SELFPAY | END | disposition home or self-care (01) | PROVIDERS: PCP Internal Medicine; Referring Provider Nurse Practitioner Family; Visit Provider Nurse Practitioner Family | DX: N39.0 Urinary tract infection, site not specified (principal) | CPT/HCPCS: 87077; 87086; 87088; 87186 ==

== ENCOUNTER → 2023-12-23 | Outpatient (CLI) | payer MEDICARE, OTHER, SELFPAY | END | disposition home or self-care (01) | PROVIDERS: PCP Internal Medicine; Referring Provider Nurse Practitioner Family; Visit Provider Nurse Practitioner Family | DX: N39.0 Urinary tract infection, site not specified (principal) | CPT/HCPCS: 87086; 87088 ==

== ENCOUNTER → 2024-02-15 | Outpatient (CLI) | payer MEDICARE, OTHER, SELFPAY ==
[2024-02-15 11:52] LABS: Absolute Lymphocyte Count 1.39 X10^3/uL (0.83-4.51); Absolute Neutrophil Count 2.8 X10^3/uL (2.0-7.7); Basophil# 0.04 X10^3/uL; Basophil% 0.8 % (0-1); Eosinophil# 0.52 X10^3/uL; Eosinophils% 10.2 % (0-5); Hematocrit 41.5 % (37-47); Hemoglobin 14.1 g/dL (12.0-15.0); Lymphocyte # 1.39 X10^3/ul (0.83-4.51); Lymphocyte % 27.1 % (19-41); Mean Corpuscular Hgb 31.3 pg (27.0-32.0); Mean Corpuscular Volume 92.2 fL (81-99); Monocyte# 0.37 X10^3/uL; Monocyte% 7.2 % (0-10); NRBC Flagged by Analyzer 0 % (0-5); Neutrophil # 2.78 X10^3/uL (2.7-7.7); Neutrophil % 54.3 % (47-70); Platelet Count 227 K/mm3 (150-450); RBC Distribution Width CV 11.9 % (11.6-14.6); RBC Distribution Width SD 40.9 fl (35.1-43.9); White Blood Count 5.1 K/mm3 (4.4-11.0)
[2024-02-15 16:49] LABS: ALB/GLOB Ratio 1.2 RATIO (0.9-2.4); AST(SGOT) 21 U/L (15-37); Alanine Aminotransfer ALT/SGPT 27 U/L (13-56); Alkaline Phosphatase 67 U/L (45-117); Anion Gap 8 (5-15); BUN 16 mg/dL (7-18); BUN/Creat Ratio 18.7 RATIO (10-20); Calcium,Total 9.6 mg/dL (8.5-10.1); Chloride 104 mmol/L (98-107); Creatinine, Serum 0.86 mg/dL (0.55-1.02); EST Glomerular Filtration Rate 70 mL/min (>60); Est Glom Filt Rate - Afr Amer 85 mL/min (>60); Estradiol < 11.0 pg/mL; Free T3 2.8 pg/mL (2.18-3.98); Globulin 3.2 g/dL (2.2-4.2); Glucose 109 mg/dL (74-106); Potassium 3.7 mmol/L (3.5-5.1); Protein, Total 7.2 g/dL (6.4-8.2); Sodium Level 138 mmol/L (136-145); T4 Free Direct 1.07 ng/dL (0.76-1.46); Thyroid Stim Hormone (TSH) 0.12 uIU/mL (0.358-3.74)
[2024-02-16 04:08] LABS: DHEA Sulfate 44.3 ug/dL (20.4-186.6); PROGESTERONE 1.6 ng/mL (.)
== END | disposition home or self-care (01) ==
LOC: BIMLAB 09:20
PROVIDERS: PCP Internal Medicine; Referring Provider Nurse Practitioner Family; Visit Provider Nurse Practitioner Family
DX: F32.A Depression, unspecified (principal); R53.82 Chronic fatigue, unspecified; E03.8 Other specified hypothyroidism; E28.9 Ovarian dysfunction, unspecified; B37.41 Candidal cystitis and urethritis
CPT/HCPCS: 36415; 80053; 82627; 82670; 84144; 84403; 84439; 84443; 84481; 85025; 82626

== ENCOUNTER → 2024-03-13 | Outpatient (CLI) | payer MEDICARE, OTHER, SELFPAY ==
[2024-03-13 16:00] LABS: Ferritin 48 ng/mL (8-252)
== END | disposition home or self-care (01) ==
PROVIDERS: PCP Internal Medicine; Referring Provider Nurse Practitioner Family; Visit Provider Nurse Practitioner Family
DX: D68.59 Other primary thrombophilia (principal); Z13.220 Encounter for screening for lipoid disorders; Z83.2 Family history of diseases of the blood and blood-forming organs and certain disorders involving the immune mechanism; Z82.49 Family history of ischemic heart disease and other diseases of the circulatory system; R53.82 Chronic fatigue, unspecified
CPT/HCPCS: 36415; 82728

== ENCOUNTER → 2024-04-12 | Outpatient (CLI) | payer MEDICARE, OTHER, SELFPAY | END | disposition home or self-care (01) | PROVIDERS: PCP Internal Medicine; Referring Provider Nurse Practitioner Family; Visit Provider Nurse Practitioner Family | DX: D68.59 Other primary thrombophilia (principal); Z82.49 Family history of ischemic heart disease and other diseases of the circulatory system; Z83.2 Family history of diseases of the blood and blood-forming organs and certain disorders involving the immune mechanism; Z13.220 Encounter for screening for lipoid disorders | CPT/HCPCS: 36415 ==

== ENCOUNTER 2024-05-10 13:18 | Outpatient (CLI) | payer MEDICARE, OTHER, SELFPAY ==
[2024-05-10 15:19] LABS: Absolute Lymphocyte Count 1.35 X10^3/uL (0.83-4.51); Absolute Neutrophil Count 3.4 X10^3/uL (2.0-7.7); Basophil# 0.02 X10^3/uL; Basophil% 0.4 % (0-1); Eosinophil# 0.26 X10^3/uL; Eosinophils% 4.8 % (0-5); Hematocrit 44.5 % (37-47); Hemoglobin 14.9 g/dL (12.0-15.0); Lymphocyte # 1.35 X10^3/ul (0.83-4.51); Mean Corp Hgb Conc 33.5 g/dL (32-36); Mean Corpuscular Hgb 30.3 pg (27.0-32.0); Mean Corpuscular Volume 90.4 fL (81-99); Mean Platelet Vol. 9.9 fl (6.2-12.0); Monocyte# 0.36 X10^3/uL; Monocyte% 6.7 % (0-10); NRBC Flagged by Analyzer 0 % (0-5); Neutrophil # 3.38 X10^3/uL (2.7-7.7); Neutrophil % 62.5 % (47-70); Platelet Count 282 K/mm3 (150-450); RBC Distribution Width CV 11.9 % (11.6-14.6); RBC Distribution Width SD 39.4 fl (35.1-43.9); Red Blood Count 4.92 M/mm3 (4.2-5.4); White Blood Count 5.4 K/mm3 (4.4-11.0)
[2024-05-10 15:52] LABS: AST(SGOT) 16 U/L (15-37); Alanine Aminotransfer ALT/SGPT 26 U/L (13-56); Albumin, Serum 3.7 g/dL (3.2-5.0); Alkaline Phosphatase 92 U/L (45-117); Anion Gap 8 (5-15); BUN 19 mg/dL (7-18); BUN/Creat Ratio 21.6 RATIO (10-20); Calcium,Total 9.2 mg/dL (8.5-10.1); Chloride 107 mmol/L (98-107); Creatinine, Serum 0.88 mg/dL (0.55-1.02); EST Glomerular Filtration Rate 68 mL/min (>60); Est Glom Filt Rate - Afr Amer 82 mL/min (>60); Estradiol < 11.0 pg/mL; Ferritin 61 ng/mL (8-252); Free T3 2.3 pg/mL (2.18-3.98); Globulin 3.7 g/dL (2.2-4.2); Glucose 135 mg/dL (74-106); Iron 82 ug/dL (50-170); Potassium 3.4 mmol/L (3.5-5.1); Protein, Total 7.4 g/dL (6.4-8.2); Sodium Level 140 mmol/L (136-145); Thyroid Stim Hormone (TSH) 0.234 uIU/mL (0.358-3.740)
[2024-05-20 01:07] LABS: Testosterone, Total 43 ng/dL (3-67); Vitamin B12 810 pg/mL (232-1245)
== END 2024-05-10 23:59 | disposition home or self-care (01) ==
PROVIDERS: PCP Internal Medicine; Referring Provider Nurse Practitioner Family; Visit Provider Nurse Practitioner Family
DX: R53.82 Chronic fatigue, unspecified (principal); F41.9 Anxiety disorder, unspecified; F32.A Depression, unspecified; L65.9 Nonscarring hair loss, unspecified; E28.9 Ovarian dysfunction, unspecified; G89.29 Other chronic pain
CPT/HCPCS: 36415; 80053; 82607; 82627; 82670; 82728; 83540; 84144; 84403; 84439; 84443; 84481; 85025; 82626

== ENCOUNTER → 2024-06-19 | Outpatient (CLI) | payer MEDICARE, OTHER, SELFPAY | END | disposition home or self-care (01) | PROVIDERS: PCP Internal Medicine; Referring Provider Nurse Practitioner Family; Visit Provider Nurse Practitioner Family | DX: N39.0 Urinary tract infection, site not specified (principal); R53.82 Chronic fatigue, unspecified; B37.41 Candidal cystitis and urethritis; R41.89 Other symptoms and signs involving cognitive functions and awareness ==

== ENCOUNTER 2024-08-11 16:09 | Emergency (ER) | payer MEDICARE, OTHER, SELFPAY ==
[2024-08-11 16:09] VITALS: BP 118/98; PULSE 135; RESP 18; TEMP 36.6; O2SAT 98; BMI 35.4
[2024-08-11 16:55] LABS: Absolute Lymphocyte Count 1.85 X10^3/uL (0.83-4.51); Absolute Neutrophil Count 5.5 X10^3/uL (2.0-7.7); Basophil# 0.05 X10^3/uL; Basophil% 0.6 % (0-1); Eosinophil# 0.18 X10^3/uL; Eosinophils% 2.2 % (0-5); Hematocrit 44.8 % (37-47); Hemoglobin 15.7 g/dL (12.0-15.0); Lymphocyte # 1.85 X10^3/ul (0.83-4.51); Lymphocyte % 22.3 % (19-41); Mean Corpuscular Hgb 30.7 pg (27.0-32.0); Mean Corpuscular Volume 87.5 fL (81-99); Monocyte# 0.67 X10^3/uL; Monocyte% 8.1 % (0-10); NRBC Flagged by Analyzer 0 % (0-5); Neutrophil # 5.52 X10^3/uL (2.7-7.7); Neutrophil % 66.4 % (47-70); Platelet Count 262 K/mm3 (150-450); RBC Distribution Width CV 11.9 % (11.6-14.6); RBC Distribution Width SD 38.2 fl (35.1-43.9); Red Blood Count 5.12 M/mm3 (4.2-5.4); White Blood Count 8.3 K/mm3 (4.4-11.0)
--- NOTE | 2024-08-11 17:00 | CT_ITS ---
STUDY: CTA CHEST REASON FOR EXAM: Female, 68 years old. chest pain, recent surgery, tachy RADIATION DOSAGE (If Supplied By Facility): CTDIvol = ( 13.53 ) mGy, DLP = ( 482.58 ) mGycm TECHNIQUE: The examination was performed with the intravenous administration of IV 100mL Isovue-370. Post-processing of the angiographic images was performed, with multiplanar reformation and 3D reconstruction. The protocol utilizes one or more of the following dose reduction techniques: automated exposure control, adjustment of mA and/or kV according to patient size,and/or use of iterative reconstruction technique. COMPARISON: FINDINGS: Normal enhancement of the main pulmonary artery and right and left pulmonary arteries. Normal enhancement of the bilateral peripheral pulmonary arteries. There is no demonstrated pulmonary embolism. Normal thoracic aorta and visualized great vessels. There is no demonstrated aortic dissection. Normal heart and pericardium. Normal mediastinum. Normal hilar regions. Normal visualized trachea and bronchi. The lungs are well expanded. Normal pulmonary parenchyma. Normal pleura. Normal chest wall structures. Normal osseous structures. Normal visualized upper abdomen. CT/CTA Chest W/WO Contrast IMPRESSION: No demonstrated pulmonary embolism or arterial dissection. Electronically Signed: Jered Madsen DO at 18:31 [facility] ,
[2024-08-11 17:05] LABS: Anion Gap 9 (5-15); BUN 19 mg/dL (7-18); BUN/Creat Ratio 17.8 RATIO (10-20); Calcium,Total 9.8 mg/dL (8.5-10.1); Chloride 102 mmol/L (98-107); Creatinine, Serum 1.07 mg/dL (0.55-1.02); EST Glomerular Filtration Rate 54 mL/min (>60); Est Glom Filt Rate - Afr Amer 65 mL/min (>60); Estimated Creatinine Clearance 57.91 ml/min; Glucose 125 mg/dL (74-106); Potassium 3.1 mmol/L (3.5-5.1); Sodium Level 137 mmol/L (136-145); Troponin-I HS (w/2H Reflex) 6 pg/mL (3.0-54.0)
--- NOTE | 2024-08-11 17:07 | EX.ED.DYSGE1 ---
HPI History of Present Illness Chief Complaint: Chest Pain Narrative Narrative: Patient is a 68-year-old female with past medical history of JOHN, depression, anxiety, TIA, GERD who presents to the emergency department chief complaint of chest pain and leg pain. Patient states that she had surgery approximately 1 week ago and notes that she saw her physician earlier today for a follow-up appointment. She had been complaining of some lower extremity pain and thought that this was secondary to the postoperative shoe that she was in. She felt like she has more deep pain in her left calf and left thigh they advised her to come here for the valuation management. States that if she is on aspirin per her physician. Patient denies any history of blood clots. [facility] Medical History Lyme disease Chronic UTI PONV (postoperative nausea and vomiting) Wears hearing aid Congenital absence of one kidney Fatty liver History of hiatal hernia Diverticulosis Sleep apnea Gastric intestinal metaplasia Depression Hearing loss Wears glasses Post-menopausal Cancer Anxiety Thyroid disease History of renal disease High cholesterol Anemia Injury of head and neck History of diverticulitis History of IBS Gastric reflux Non-smoker CPAP (continuous positive airway pressure) dependence Esophageal spasm History of stress test Biliary dyskinesia GERD (gastroesophageal reflux disease) Home Medications ?Medication ?Instructions ?Recorded ?Last Taken ?Type aspirin 81 mg chewable tablet 81 mg PO DAILY 02/24/14 07/28/24 History bupropion HCl 75 mg tablet 100 mg PO DAILY mood 02/24/14 11/26/16 History (Wellbutrin) hydrochlorothiazide 25 mg tablet 25 mg PO DAILY 02/24/14 11/26/16 History ferrous sulfate 325 mg (65 mg 325 mg PO DAILY 11/15/20 11/11/23 History iron) tablet multivitamin with minerals 1 each PO DAILY 11/15/20 Unknown History cholecalciferol (vitamin D3) 50 4,000 unit PO DAILY supplement 10/14/23 Unknown History mcg (2,000 unit) capsule dexlansoprazole 60 mg 60 mg PO DAILY 10/14/23 08/04/24 History capsule,biphase delayed release (Dexilant) levothyroxine 50 mcg tablet 100 mcg PO .MOTH HS 10/14/23 Unknown History losartan 50 mg tablet 50 mg PO DAILY 10/14/23 Unknown History potassium chloride 10 mEq 10 meq PO BID 10/14/23 Unknown History capsule,extended release venlafaxine 75 mg tablet 75 mg PO DAILY 10/14/23 Unknown History levothyroxine 88 mcg tablet 88 mcg PO .SUTUWEFRSA HS 11/17/23 Unknown History modafinil 200 mg tablet 200 mg PO DAILY 11/17/23 Unknown History Lactobacillus acidophilus 10 100 mmu cells PO DAILY 07/31/24 Unknown History billion cell capsule (NewFlora) alfuzosin 10 mg tablet,extended 10 mg PO .2X PER WK 07/31/24 Unknown History release 24 hr (Uroxatral) estradiol 0.01% (0.1 mg/gram) 1 appful vaginal .3X PER WK 07/31/24 Unknown History vaginal cream famotidine 20 mg tablet (Pepcid) 20 mg PO BID 07/31/24 08/04/24 History omega 9-rec-twf-fish oil 1,200 mg 1 cap PO DAILY 07/31/24 07/28/24 History (144 mg-216 mg) capsule (Fish Oil) vortioxetine 10 mg tablet 10 mg PO DAILY 07/31/24 Unknown History (Trintellix) aspirin 81 mg tablet,delayed 162 mg (2 x 81 mg) PO DAILY #28 08/04/24 Unknown Rx release tabs docusate sodium 100 mg capsule 100 mg PO BID #20 caps 08/04/24 Unknown Rx ondansetron 4 mg disintegrating 4 mg PO Q8H PRN nausea and 08/04/24 Unknown Rx tablet vomiting #10 tabs oxycodone 5 mg tablet 5 mg PO Q6H PRN pain 7 days #28 08/04/24 Unknown Rx tabs Allergy/AdvReac Type Severity Reaction Status Date / Time Sulfa (Sulfonamide Allergy Other Verified 08/11/24 16:10 Antibiotics) zoster vaccine live (From Allergy Other Verified 08/11/24 16:10 Zostavax (PF)) Family History Father Diabetes Heart disease Cancer skin Hypertension CVA (cerebral vascular accident) Mother Hypertension Brother Cancer lymphoma Surgical History History of esophagogastroduodenoscopy S/P laparoscopic cholecystectomy History of cardiac catheterization History of bunionectomy History of colonoscopy (~10/2020) History of dilatation and curettage History of laparoscopy History of 2 sections History of tonsillectomy and adenoidectomy History of left inguinal hernia repair Social History Smoking Status: Never smoker ROS ROS ED ROS Narrative Constitutional: Denies any fevers, chills, headaches Cardiovascular: Points chest pain and palpitations Respiratory: Denies shortness of breath coughing wheezing Abdomen: Denies abdominal pain nausea vomit diarrhea : Denies any urinary symptoms Neurological: Denies numbness, weakness, tingling Musculoskeletal: Complains of left leg pain as noted above Skin: Denies rashes or lesions EXAM Physical Exam Narrative Exam Narrative: General: Patient was lying in bed rest comfortably did not appear to be acute distress Head: Atraumatic, normocephalic Eyes: PERRL bilaterally, EOMI bilateral, no conjunctival injection noted Neck: Soft, supple and trachea midline Cardiovascular: Patient is tachycardic with a regular rhythm no murmurs gallops rubs noted Respiratory: Clear to auscultation bilaterally Abdomen: Soft, nondistended, nontender to palpation, bowel sounds present x 4 Musculoskeletal: Compartment soft and compressible in the bilateral lower extremities Extremities: Radial pulses +2/4 in the bilateral extremities, DP pulses +2/4 in the bilateral lower extremities, +5/5 strength noted in the bilateral upper and lower extremities Neurological: Patient following commands knew that she was at [facility] year is 2024 Skin: Warm, dry, intact Const Vital Signs: 08/11/24 16:09 08/11/24 16:31 08/11/24 16:43 Temperature 98 F Temperature Source Oral Pulse Rate 135 H Respiratory Rate 18 Respiratory Effort Normal Non-Labored Blood Pressure 118/98 H Blood Pressure Mean 104 Pulse Ox 98 Oxygen Delivery Method Room Air Room Air 08/11/24 17:09 08/11/24 18:00 08/11/24 18:59 Temperature Temperature Source Pulse Rate 112 H 98 99 Respiratory Rate 18 16 16 Respiratory Effort Blood Pressure 167/99 H 148/92 H 135/93 H Blood Pressure Mean 121 110 107 Pulse Ox 97 97 97 Oxygen Delivery Method Room Air Room Air Room Air MDM MDM MDM Narrative Medical decision making narrative: Patient is a 60-year-old female who presented to the emergency department chief complaint of left leg pain and chest pain. On the differential diagnose includes Melamin to ACS, pneumonia, pneumothorax, pulmonary embolism, DVT. Once workup is obtained reviewed she will be reevaluated. Patient's a CBC was reviewed showed no evidence leukocytosis white blood count normal 8.3, hemoglobin 15.7, platelet count was noted be normal at 262. Patient sodium was noted be 137, potassium was low at 3.1 she was given 40 mill equivalents of potassium supplementation. Patient states that she is supposed to be on potassium replacement at home states that she has not been taking this over the last week. Patient's creatinine was noted to be 1.07. Patient's glucose was 125, troponin was noted to be 6 with a delta troponin obtained noted to be 6. Patient's EKG reviewed and independently interpreted by myself showed sinus tachycardia with a rate of 131 bpm. Patient's venous duplex reviewed showed no evidence of DVT. Patient CTA of chest was reviewed showed no evidence of pulmonary embolism or dissection. On reevaluation the patient her heart rate has improved significantly to normal sinus rhythm with a rate of 99 bpm. I did discuss results with the patient she would like to go home at this point time. She was advised follow-up with her primary care physician in the outpatient setting. She is encouraged to take her potassium replacement as prescribed. She is encouraged return for symptoms or concerns. She is agreeable to plan as well as her significant other at bedside all question concerns answered she was discharged home in stable condition. Lab Data Labs: Laboratory Results - last 24 hr 08/11/24 08/11/24 16:20 18:42 WBC 8.3 RBC 5.12 Hgb 15.7 H Hct 44.8 MCV 87.5 MCH 30.7 MCHC 35.0 RDW Std Deviation 38.2 RDW Coeff of Elliott 11.9 Plt Count 262 MPV 10.0 Immature Gran % (Auto) 0.400 Neut % (Auto) 66.4 Lymph % (Auto) 22.3 Duval % (Auto) 8.1 Eos % (Auto) 2.2 Baso % (Auto) 0.6 Absolute Neuts (auto) 5.5 Absolute Lymphs (auto) 1.85 Nucleated RBC % 0 Sodium 137 Potassium 3.1 L Chloride 102 Carbon Dioxide 26.0 Anion Gap 9 BUN 19 H Creatinine 1.07 H Estim Creat Clear Calc 57.91 Est GFR (MDRD) Af Amer 65 Est GFR (MDRD) Non-Af 54 L BUN/Creatinine Ratio 17.8 Glucose 125 H Calcium 9.8 Troponin I High Sens 6 6 Radiography Diagnostic Testing: Clinical Impression(s) from Imaging Studies Chest CTA 08/11/24 17:00 IMPRESSION: No demonstrated pulmonary embolism or arterial dissection. Electronically Signed: Jered Madsen DO at 18:31 EST , Venous Duplex 08/11/24 17:21 IMPRESSION: No sonographic evidence of deep venous thrombosis. Electronically Signed: Jered Madsen DO at 18:01 EST , Discharge Plan Triage Chief Complaint: Chest Pain Other Complaint: Lower Extremity Injury ED Provider: Matthew Noe Dx/Rx/DC Orders Clinical Impression: Left leg pain Prescriptions: No Action cholecalciferol (vitamin D3) 50 mcg (2,000 unit) capsule 4,000 unit PO DAILY losartan 50 mg tablet 50 mg PO DAILY venlafaxine 75 mg tablet 75 mg PO DAILY dexlansoprazole [Dexilant] 60 mg capsule,biphase delayed releas 60 mg PO DAILY bupropion HCl [Wellbutrin] 75 MG tablet 100 mg PO DAILY aspirin 81 MG tablet,chewable 81 mg PO DAILY Patient Comments: STOPPED FOR SURGERY ON 08/04/2024 hydrochlorothiazide 25 MG tablet 25 mg PO DAILY levothyroxine 50 mcg tablet 100 mcg PO .MOTH HS ferrous sulfate 325 MG tablet 325 mg PO DAILY multivitamin with minerals 1 EACH tablet 1 each PO DAILY potassium chloride 10 mEq capsule, extended release 10 meq PO BID levothyroxine 88 mcg tablet 88 mcg PO .SUTUWEFRSA HS modafinil 200 mg tablet 200 mg PO DAILY Trintellix 10 mg tablet 10 mg PO DAILY famotidine [Pepcid] 20 mg tablet 20 mg PO BID omega 1-vdr-zvu-fish oil [Fish Oil] 1,200 (144-216) mg capsule 1 cap PO DAILY NewFlora 10 billion cell capsule 100 mmu cells PO DAILY alfuzosin [Uroxatral] 10 mg tablet extended release 24 hr 10 mg PO .2X PER WK Rx Instructions: administer after the same meal each day estradiol 0.01 % (0.1 mg/gram) cream 1 appful vaginal .3X PER WK aspirin 81 mg tablet,delayed release (DR/EC) 162 mg PO DAILY Qty: 28 0RF docusate sodium 100 mg capsule 100 mg PO BID Qty: 20 0RF oxycodone 5 mg tablet 5 mg PO Q6H PRN (Reason: pain) 7 Days Qty: 28 0RF ondansetron 4 mg tablet,disintegrating 4 mg PO Q8H PRN (Reason: nausea and vomiting) Qty: 10 0RF Primary Care Provider: Patricia Wilkins Referrals: Patricia Wilkins MD [Primary Care Provider] - Activity Restrictions/Additional Instructions: Follow-up with your doctor in the outpatient setting. Your ultrasound did not show any evidence of DVT. Your CTA of your chest did not show any evidence of blood clots in your lungs. Your blood work looked normal. Your heart enzymes were normal. Return with worsening symptoms or concerns. Print Language: Namibian Disposition Disposition: Home, Self Care
[2024-08-11 17:09] VITALS: BP 167/99; PULSE 112; RESP 18; O2SAT 97
--- NOTE | 2024-08-11 17:21 | US_ITS ---
INDICATION: left leg pain EXAMINATION: Ultrasound US Venous Duplex LLE Unilat / Limited TECHNIQUE: Burch scale, pulse wave, and color flow Doppler imaging was performed of the lower extremity venous system. The bilateral greater saphenous, common femoral, femoral, and popliteal veins were interrogated. COMPARISON: FINDINGS: There is normal compression, augmentation, and signal throughout the visualized deep lower extremity veins. No mass or fluid collection. US/Venous Duplex Imag/Limited/Uni IMPRESSION: No sonographic evidence of deep venous thrombosis. Electronically Signed: Jered Madsen DO at 18:01 EST Reading Location ID and State: [facility] / [place] Tel [phone], Service support ,
[2024-08-11 18:00] VITALS: BP 148/92; PULSE 98; RESP 16; O2SAT 97
[2024-08-11 18:50] LABS: Reflex Troponin-HS? (from REC) Y
[2024-08-11] MEDS: Potassium Chloride Oral Tablet 20 MEQ 40 MEQ PO (18:58)
[2024-08-11 18:59] VITALS: BP 135/93; PULSE 99; RESP 16; O2SAT 97
[2024-08-11 19:41] LABS: Troponin-I HS 6 pg/mL (3.0-54.0)
[2024-08-11 20:00] VITALS: BP 130/73; PULSE 94; RESP 18; O2SAT 94
[2024-08-11 20:17] VITALS: BP 130/73; PULSE 94; RESP 18; TEMP 36.7; O2SAT 94
== END 2024-08-11 20:18 | disposition home or self-care (01) ==
PROVIDERS: Emergency Provider Emergency Medicine; PCP Internal Medicine; Visit Provider Emergency Medicine
DX: R07.9 Chest pain, unspecified (principal); M79.605 Pain in left leg; F32.A Depression, unspecified; F41.9 Anxiety disorder, unspecified; K21.9 Gastro-esophageal reflux disease without esophagitis; E07.9 Disorder of thyroid, unspecified; E78.00 Pure hypercholesterolemia, unspecified; G47.33 Obstructive sleep apnea (adult) (pediatric); Z88.2 Allergy status to sulfonamides; Z87.19 Personal history of other diseases of the digestive system; Z90.49 Acquired absence of other specified parts of digestive tract; Z86.73 Personal history of transient ischemic attack (TIA), and cerebral infarction without residual deficits; Z79.82 Long term (current) use of aspirin; Z79.899 Other long term (current) drug therapy; Z79.890 Hormone replacement therapy
CPT/HCPCS: 71275; 80048; 84484; 85025; 93005; 93971; 99285; Q9967; A4216

== ENCOUNTER → 2024-08-28 | Outpatient (CLI) | payer MEDICARE, OTHER, SELFPAY ==
[2024-08-28 13:09] LABS: Absolute Lymphocyte Count 1.41 X10^3/uL (0.83-4.51); Absolute Neutrophil Count 3.4 X10^3/uL (2.0-7.7); Basophil# 0.04 X10^3/uL; Basophil% 0.7 % (0-1); Eosinophil# 0.09 X10^3/uL; Eosinophils% 1.6 % (0-5); Hematocrit 42.2 % (37-47); Hemoglobin 14.7 g/dL (12.0-15.0); Lymphocyte # 1.41 X10^3/ul (0.83-4.51); Lymphocyte % 25.7 % (19-41); Mean Corp Hgb Conc 34.8 g/dL (32-36); Mean Corpuscular Hgb 30.6 pg (27.0-32.0); Mean Corpuscular Volume 87.7 fL (81-99); Mean Platelet Vol. 10.3 fl (6.2-12.0); Monocyte# 0.52 X10^3/uL; Monocyte% 9.5 % (0-10); NRBC Flagged by Analyzer 0 % (0-5); Neutrophil % 62.1 % (47-70); Platelet Count 241 K/mm3 (150-450); RBC Distribution Width CV 11.9 % (11.6-14.6); RBC Distribution Width SD 38.6 fl (35.1-43.9); Red Blood Count 4.81 M/mm3 (4.2-5.4); White Blood Count 5.5 K/mm3 (4.4-11.0)
[2024-08-28 13:27] LABS: T3 Total - Triiodothyronine 0.83 ng/mL (0.6-1.81)
[2024-08-28 13:33] LABS: ALB/GLOB Ratio 1.2 RATIO (0.9-2.4); AST(SGOT) 13 U/L (15-37); Alanine Aminotransfer ALT/SGPT 23 U/L (13-56); Albumin, Serum 3.8 g/dL (3.2-5.0); Alkaline Phosphatase 77 U/L (45-117); Anion Gap 10 (5-15); BUN 16 mg/dL (7-18); BUN/Creat Ratio 19.6 RATIO (10-20); Calcium,Total 9.3 mg/dL (8.5-10.1); Chloride 104 mmol/L (98-107); Creatinine, Serum 0.82 mg/dL (0.55-1.02); EST Glomerular Filtration Rate 74 mL/min (>60); Est Glom Filt Rate - Afr Amer 90 mL/min (>60); Globulin 3.1 g/dL (2.2-4.2); Glucose 86 mg/dL (74-106); Potassium 3.3 mmol/L (3.5-5.1); Protein, Total 6.9 g/dL (6.4-8.2); Sodium Level 139 mmol/L (136-145); T4 Total, Thyroxin 9.9 ug/dL (4.8-13.9); Thyroid Stim Hormone (TSH) 0.178 uIU/mL (0.358-3.740)
== END | disposition home or self-care (01) ==
LOC: LABSPEC 12:25
PROVIDERS: PCP Internal Medicine; Referring Provider Nurse Practitioner Family; Visit Provider Nurse Practitioner Family
DX: N39.0 Urinary tract infection, site not specified (principal); F32.A Depression, unspecified; R53.82 Chronic fatigue, unspecified; E28.9 Ovarian dysfunction, unspecified; E03.9 Hypothyroidism, unspecified
CPT/HCPCS: 80053; 84436; 84443; 84480; 85025

== ENCOUNTER → 2024-09-18 | Outpatient (CLI) | payer MEDICARE, OTHER, SELFPAY ==
[2024-08-04] VITALS (9 sets, daily range): BP systolic 119–148; BP diastolic 76–97; PULSE 76–94; RESP 16; TEMP 36–36.4; O2SAT 94–96; BMI 34.1
--- NOTE | 2024-08-04 06:34 | PCM.PRE.AN2 ---
ASA Classification* ASA Classification ASA Classification: 2 Assessment & Plan Anesthesia* Anesthesia Assessment Anesthesia Assessment: Discussed sedation and/or anesthesia options, risks, benefits, and alternatives with patient/parents/legal guardian/POA. Questions invited. The patient/parents/legal guardian/POA seems to understand and agrees to proceed with anesthesia plan. Reviewed the physical assessment, medical history, allergy history and patient home medications list prior to surgery/procedure/anesthetic and documented any changes. Performed airway and anesthesia risk assessments. Anesthesia Type Anesthesia Type: MAC History Source History Obtained from:: Patient and Chart Anesthesia Focused Assessment* Temperature: 97.5 F Pulse Rate: 94 Blood Pressure: 119/97 Respiratory Rate: 16 Pulse Ox: 94 Oxygen Delivery Method: Room Air Airway Assessment Mouth opens: >3 cm Mallampati Score: IV Teeth Condition: Caps/Crowns (Patient has several crowns. They are all tight.) and Upper (Patient has an upper permanent bridge. It is tight.) Neck Range of motion (ROM): Full ROM Focused Labs Anesthesia Preop lab: CBC WBC 5.4 K/mm3 (4.4-11.0) 05/10/24 13:25 RBC 4.92 M/mm3 (4.2-5.4) 05/10/24 13:25 Hgb 14.9 g/dL (12.0-15.0) 05/10/24 13:25 Hct 44.5 % (37-47) 05/10/24 13:25 Plt Count 282 K/mm3 (150-450) 05/10/24 13:25 CHEMISTRY Potassium 3.4 mmol/L (3.5-5.1) L 05/10/24 13:25 Sodium 140 mmol/L (136-145) 05/10/24 13:25 BUN 19 mg/dL (7-18) H 05/10/24 13:25 Creatinine 0.88 mg/dL (0.55-1.02) 05/10/24 13:25 Glucose 135 mg/dL (74-106) H 05/10/24 13:25 POC Glucose 124 mg/dL (70-110) H 02/24/14 16:12 TSH 0.234 uIU/mL (0.358-3.740) L 05/10/24 13:25 COAG PT 13.3 SECONDS (11.7-14.9) 02/24/14 16:21 Pre-Assessment Diagnosis/Proposed Procedure Planned Operative Procedure(s): (R) Excision of a ganglion cyst from the right second and fourth toes with distal interphalangeal joint arthroplasty. 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 When Was Last Pacemaker Check QUESTION #4 FULL TEXT: You/Your Family Experience fever (hyperthermia) with Anesthesia Last Oral Intake Last Oral intake: Last Oral Intake NPO since 23:00 08/04/24 06:11 Meds taken in AM with sips of Yes 08/04/24 06:11 water? 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 moving technician Female Yes 07/31/24 13:19 HX of Motion Sickness Yes 07/31/24 13:19 HX of N/V After Surgery Yes 07/31/24 13:19 Non-Smoker Yes 07/31/24 13:19 Duration of Surgery greater Yes 07/31/24 13:19 than 60 minutes Number of Risk Factors 5 07/31/24 13:19 PONV Score Severe Risk 07/31/24 13:19 Height & Weight Height & Weight: Anesthesia: Height & Weight Height 5 ft 5 in 08/04/24 06:11 Weight: 93 kg 08/04/24 06:11 Body Mass Index (BMI) 34.1 08/04/24 06:11 Respiratory Assessment Respiratory Assessment - air moving technician: Respiratory Tract Infection Hx - air moving technician Hx Respiratory Tract Infection No 07/31/24 13:19 STOP Sleep Apnea STOP Sleep Apnea - air moving technician: STOP Sleep Apnea - air moving technician Hx Hypertension Yes: CONTROLLED WITH MED 07/31/24 13:19 Hx Sleep Apnea Yes 07/31/24 13:19 CPAP Yes 07/31/24 13:19 BIPAP No 07/31/24 13:19 Do you snore loudly (louder than talking or can be heard Do you often feel tired/ fatigued/ sleepy during daytime? Has anyone observed you stop breathing during sleep? STOP Results Positive 07/31/24 13:19 QUESTION #5 FULL TEXT : Do you snore loudly (louder than talking or can be heard through closed doors)? 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 Specify any problems NOORVIK DISEASE 07/31/24 13:19 Hx of Preganancy in last 3 No 07/31/24 13:19 Months Nurse Filling Out Transfusion MGRIFFITH 07/31/24 13:19 & Questions: Date: 07/31/24 07/31/24 13:19 Time: 13:21 07/31/24 13:19 Patient unable to answer at this time (ie. confused, unrespo /Reproduction History /Reproductive History - air moving technician: /Reproductive Hx- air moving technician Hx Now Gestational Age (in weeks): EDC: Hx Hx Para Hx Section SAB No 11/17/23 09:41 Active Medications Active Medications: Current Medications Generic Name Dose Route Start Last Admin Trade Name Freq PRN Reason Stop Dose Admin Cefazolin Sodium 2 gm/ N/A 20 mls @ 400 mls/hr 08/04/24 07:30 IV 08/04/24 07:32 PREOP ONE [facility] Medical History Lyme disease Chronic UTI PONV (postoperative nausea and vomiting) Wears hearing aid Congenital absence of one kidney Fatty liver History of hiatal hernia Diverticulosis Sleep apnea Gastric intestinal metaplasia Depression Hearing loss Wears glasses Post-menopausal Cancer Anxiety Thyroid disease History of renal disease High cholesterol Anemia Injury of head and neck History of diverticulitis History of IBS Gastric reflux Non-smoker CPAP (continuous positive airway pressure) dependence Esophageal spasm History of stress test Biliary dyskinesia GERD (gastroesophageal reflux disease) Home Medications ?Medication ?Instructions ?Recorded ?Last Taken ?Type aspirin 81 mg chewable tablet 81 mg PO DAILY 02/24/14 07/28/24 History bupropion HCl 75 mg tablet 100 mg PO DAILY mood 02/24/14 11/26/16 History (Wellbutrin) hydrochlorothiazide 25 mg tablet 25 mg PO DAILY 02/24/14 11/26/16 History ferrous sulfate 325 mg (65 mg 325 mg PO DAILY 11/15/20 11/11/23 History iron) tablet multivitamin with minerals 1 each PO DAILY 11/15/20 Unknown History cholecalciferol (vitamin D3) 50 4,000 unit PO DAILY supplement 10/14/23 Unknown History mcg (2,000 unit) capsule dexlansoprazole 60 mg 60 mg PO DAILY 10/14/23 08/04/24 History capsule,biphase delayed release (Dexilant) levothyroxine 50 mcg tablet 100 mcg PO .MOTH HS 10/14/23 Unknown History losartan 50 mg tablet 50 mg PO DAILY 10/14/23 Unknown History potassium chloride 10 mEq 10 meq PO BID 10/14/23 Unknown History capsule,extended release venlafaxine 75 mg tablet 75 mg PO DAILY 10/14/23 Unknown History levothyroxine 88 mcg tablet 88 mcg PO .SUTUWEFRSA HS 11/17/23 Unknown History modafinil 200 mg tablet 200 mg PO DAILY 11/17/23 Unknown History Lactobacillus acidophilus 10 100 mmu cells PO DAILY 07/31/24 Unknown History billion cell capsule (NewFlora) alfuzosin 10 mg tablet,extended 10 mg PO .2X PER WK 07/31/24 Unknown History release 24 hr (Uroxatral) estradiol 0.01% (0.1 mg/gram) 1 appful vaginal .3X PER WK 07/31/24 Unknown History vaginal cream famotidine 20 mg tablet (Pepcid) 20 mg PO BID 07/31/24 08/04/24 History omega 7-vjn-yba-fish oil 1,200 mg 1 cap PO DAILY 07/31/24 07/28/24 History (144 mg-216 mg) capsule (Fish Oil) vortioxetine 10 mg tablet 10 mg PO DAILY 07/31/24 Unknown History (Trintellix) Allergy/AdvReac Type Severity Reaction Status Date / Time Sulfa (Sulfonamide Allergy Other Verified 08/04/24 06:09 Antibiotics) zoster vaccine live (From Allergy Other Verified 08/04/24 06:09 Zostavax (PF)) Family History Father Diabetes Heart disease Cancer skin Hypertension CVA (cerebral vascular accident) Mother Hypertension Brother Cancer lymphoma Surgical History History of esophagogastroduodenoscopy S/P laparoscopic cholecystectomy History of cardiac catheterization History of bunionectomy History of colonoscopy (~10/2020) History of dilatation and curettage History of laparoscopy History of 2 sections History of tonsillectomy and adenoidectomy History of left inguinal hernia repair Social History Smoking Status: Never smoker Review of Systems (Anesthesia) ROS Narrative System reviewed and no additional complaints, except as documented.
--- NOTE | 2024-08-04 07:30 | GANG_PTH ---
PATIENT: SAMIR BAUTISTA [id number] AGE/SX: 68/F ROOM: RE09/18/[address]: Dr. Lior Norman DPM : 1955 BED: DIS: 09/18/2024 SPEC #: [id number] RECD: 08/04/24 10:41 STATUS: LAURA REAlesia #: [id number] JANET: 08/04/24 07:[address]: Lior Norman DEPT: SURGICAL PATHOLOGY RECD BY: Cecilia Andrew ENTERED: 08/04/24 11:47 SP TYPE: GANGLION OTHR DR: Dr. Patricia Wilkins MD Tissues: A - GANGLION CYST B - Bone of foot, NOS Procedures: Decalcification bone/plaque Surgery Specimen Level III HEADER OPERATION: Excision of a ganglion cyst from right second and fourth toes PRE-OP DIAGNOSIS: Ganglion cysts, abnormal gait TISSUE SUBMITTED: A- Ganglion cysts 2nd and 4th toes- foot, B- Bone from 2nd toe- right foot MICROSCOPIC DIAGNOSIS A. Ganglion cysts 2nd and 4th toes, foot, excision: Consistent with ganglion cysts x2. B. Bone from 2nd toe, right foot, excision: A piece of bone with reactive changes. 08/09/2024 MICROSCOPIC DESCRIPTION Slides are reviewed. GROSS DESCRIPTION A. Received in fixative is one container labeled with the patient's name and designated Ganglion cysts 2nd and 4th toe. The specimen consists of two pieces of agudelo-white skin measuring 1.2 x 0.6 x 0.2cm. Second piece measures 1.5 x 0.7 x 0.3cm. Sections of both pieces reveal a cyst filled with mucoid material. The entire specimen is submitted in two cassettes with each cassette containing one piece. B. Received in fixative is one container labeled with the patient's name and designated Bone from 2nd toe right foot. The specimen consists of a piece of bone measuring 1.0 x 1.0 x 0.3cm. The entire specimen is submitted in one cassette after decalcification. 08/04/2024 TC:5 CPT:85383w6,29842
[2024-08-04] MEDS: Cefazolin 2 GM in Syringe IV (07:36)
[2024-08-04] MEDS: Bupivacaine Mpf 0.5% 30 ML VIAL (07:45)
--- NOTE | 2024-08-04 08:40 | OP.PCM_ITS ---
Problems Associated Problem List Diagnoses (1) Ganglion cyst of foot: (2) Pain in right toe(s): (3) Other hammer toe(s) (acquired), right foot: Operative Report (Standard) Operative Information Date of Procedure: 08/04/24 Pre-Operative Diagnosis: 1. Right foot ganglionic cyst to the second distal interphalangeal joint on the right foot as well as the fourth proximal interphalangeal joint to the fourth toe coming from extensor tendon sheath 2. Hammertoe second toe, right foot Post-Operative Diagnosis: Same Surgery/Procedure Performed: 1. Excision ganglionic cyst right fourth toe 2. Excision ganglionic cyst right second toe 3. Digital arthroplasty distal interphalangeal joint right second toe knuckle bender: Yes Real Estate Closing Coordinator: mando zazueta Tasks completed by advertising assistant: Opening, Closing, Opening & closing, Dissecting tissue, Hemostasis: Electrocautery and Retracting Additional retirement assistant?: No Type of Anesthesia: MAC RN Documented Start/Stop Times: Operation Date: 08/04/24 07:30 Case Time Into Pre-Op 08/04/24 05:58 Out of Pre-Op 08/04/24 07:32 Anesthesia Start 08/04/24 07:36 Into Room 08/04/24 07:36 Procedure Start 08/04/24 07:55 Procedure End 08/04/24 08:24 Anesthesia End 08/04/24 08:26 Out of Room 08/04/24 08:26 Into Recovery 08/04/24 08:30 Procedure Start Time: 07:30 Procedure Stop Time: 08:20 Select all DRAINS/GRAFTS/IMPLANTS that apply: None Special Medications: 20cc 0.5% marcaine plain Estimated Blood Loss: minimal Fluids Replaced: none Specimen collected: Yes Description of specimen(s) removed: digital mucoid cyst 2nd and 4th toe right foot hammertoe right 2nd toe Description of surgery: Patient brought back the operating placed comfortably in supine position on the operating room table. Patient induced under MAC anesthesia. Well-padded right ankle tourniquet applied. Preoperatively using aseptic technique standard toe blocks were performed to the second and fourth toe to the right foot using total of 20 cc half percent Marcaine plain. Right lower extremity scrubbed prepped draped using typical aseptic fashion. Once cleared by anesthesia of the right lower extremity was elevated exsanguinated tourniquet was inflated to 250 mmHg. Procedure #1 excision ganglionic cyst to the right fourth toe: using a elliptical incision approach along a longitudinal pattern based on orientation of the cyst medially on the proximal interphalangeal joint of the fourth toe this incision was drawn and then made full-thickness with a 15 blade through epidermis, dermis into subcutaneous tissue. Any bleeders identified cauterized neurovascular structures at the identified protected with blunt retraction. Cyst was excised with the initial skin incision down to the level of extensor tendon sheath. Incisional site was flushed with copious normal muscle normal sterile saline defect was closed the extensor tendon sheath using 4-0 Monocryl interrupted. Subcutaneous closure performed with 4-0 Monocryl interrupted. Skin closure performed with 4-0 nylon interrupted. Procedure #2 excision of ganglionic cyst to the right second toe distal interphalangeal joint: using a elliptical incision approach along a transverse pattern based on orientation of the cyst on the distal interphalangeal joint of the fourth toe this incision was drawn and then made full-thickness with a 15 blade through epidermis, dermis into subcutaneous tissue. Any bleeders identified cauterized neurovascular structures at the identified protected with blunt retraction. Cyst was excised with the initial skin incision down to the level of distal interphalangeal joint. Since the cyst extended down to the joint decision was made for preoperatively for arthroplasty to the distal interphalangeal joint. A solid cut was made transversely in the head of the middle phalanx and excised and passed the back table. This allowed for adequate soft tissue closure of the incisional site as well as reduction of a distal interphalangeal joint hammertoe deformity along with closing of the defect producing the digital mucoid cyst to the second toe. Incisional site was flushed with copious normal muscle normal sterile saline defect was closed the distal interphalangeal joint using 4-0 Monocryl interrupted. Subcutaneous closure performed with 4-0 Monocryl interrupted. Skin closure performed with 4-0 nylon interrupted. The middle phalangeal head and digital mucoid cyst were passed the back table and sent for pathologic examination. Tourniquet was let down total tourniquet time was 27 minutes. Incisional sites were cleansed and dressed with Betadine Adaptic 4 x 4's Kerlix and Brody bandage Patient was transferred to PACU vital signs stable vascular status intact all digits for further monitoring prior to discharge. Patient tolerated procedure and anesthesia well) satisfactory condition. Patient maintain heel weightbearing in surgical shoe until follow-up in 1 week. No complication Findings adequate excision of digital mucoid cyst with closing of defects to the extensor tendon sheath to the right fourth toe and distal interphalangeal joint to the right second toe which should prevent recurrence in the future. Adequate reduction of distal interphalangeal joint hammertoe deformity. Surgical Findings: As dictated above Complications Complications: No
--- NOTE | 2024-08-04 08:51 | RAD_ITS ---
STUDY: X-RAY - RIGHT FOOT CLINICAL: Female, 68 years old. Right foot. Postop. TECHNIQUE: 4 view(s) of the foot. COMPARISON: None. FINDINGS: There is a plantar calcaneal spur. Normal visualized subtalar, talonavicular, calcaneocuboid, tarsal and tarsometatarsal articulations. Normal metatarsi. Normal metatarsophalangeal joint of the great toe. Normal tibial and fibular sesamoid bones. Normal interphalangeal joint of the great toe. Normal phalanges of the great toe. Normal second through fifth metatarsophalangeal joints. Normal interphalangeal joints and phalanges of the lesser toes. The soft tissue structures are unremarkable. RAD/Foot min 3 Views IMPRESSION: Plantar spur. Electronically Signed: Alvin Banks MD at 9:18 EST ,
--- NOTE | 2024-08-04 11:10 | PCM.POST.ANE ---
Anesthesia: Postop Eval I Current Vital Signs Temperature: 97 F Pulse Rate: 84 Blood Pressure: 132/76 Respiratory Rate: 16 Pulse Ox: 96 Oxygen Delivery Method: Room Air Assessment Airway patent: Yes Spontaneous unlabored respirations: Yes Mental status: Awake and Calm nausea: No Vomiting: No Anesthesia Complication: No Fluid Hydration Crystalloid volume administer (ml): 30 Total IV fluid infused: 30 Progress Note Anesthesia document: Postop Eval 1 completed: Yes
== END | disposition home or self-care (01) ==
LOC: SDC 08-04 05:55 → AC 08-04 05:55 → LABSPEC 16:46
PROVIDERS: PCP Internal Medicine; Referring Provider Podiatrist; Visit Provider Podiatrist
PROC: (CPT 28092; principal; 2024-08-04 07:15)
DX: M67.471 Ganglion, right ankle and foot (principal); F33.1 Major depressive disorder, recurrent, moderate; M20.41 Other hammer toe(s) (acquired), right foot; I10 Essential (primary) hypertension; D64.9 Anemia, unspecified; K21.9 Gastro-esophageal reflux disease without esophagitis; F41.9 Anxiety disorder, unspecified; E07.9 Disorder of thyroid, unspecified; N39.46 Mixed incontinence; G47.33 Obstructive sleep apnea (adult) (pediatric); Z88.2 Allergy status to sulfonamides; Z79.82 Long term (current) use of aspirin; Z79.899 Other long term (current) drug therapy; Z79.890 Hormone replacement therapy
CPT/HCPCS: 28092 ×2; 28285; 01480; 73630; 87070; 87205; 88304; 88311; A4216; J2405

== ENCOUNTER → 2024-09-18 | Outpatient (CLI) | payer MEDICARE, OTHER, SELFPAY ==
[2024-09-18 19:18] LABS: Anion Gap 8 (5-15); BUN 16 mg/dL (7-18); BUN/Creat Ratio 19.1 RATIO (10-20); Calcium,Total 9.5 mg/dL (8.5-10.1); Chloride 103 mmol/L (98-107); Creatinine, Serum 0.84 mg/dL (0.55-1.02); EST Glomerular Filtration Rate 72 mL/min (>60); Est Glom Filt Rate - Afr Amer 87 mL/min (>60); Glucose 136 mg/dL (74-106); Potassium 3.6 mmol/L (3.5-5.1); Sodium Level 136 mmol/L (136-145)
== END | disposition home or self-care (01) ==
LOC: BIMLAB 13:35
PROVIDERS: PCP Internal Medicine; Referring Provider Nurse Practitioner Family; Visit Provider Nurse Practitioner Family
DX: E87.6 Hypokalemia (principal)
CPT/HCPCS: 36415; 80048

== ENCOUNTER → 2024-10-13 | Outpatient (CLI) | payer MEDICARE, OTHER, SELFPAY ==
[2024-10-13 16:52] LABS: Free T3 3.5 pg/mL (2.18-3.98); Thyroid Stim Hormone (TSH) 0.156 uIU/mL (0.300-4.200)
[2024-10-15 08:08] LABS: PROGESTERONE 1.5 ng/mL (.)
== END | disposition home or self-care (01) ==
LOC: BIMLAB 15:30
PROVIDERS: PCP Internal Medicine; Referring Provider Nurse Practitioner Family; Visit Provider Nurse Practitioner Family
DX: D83.9 Common variable immunodeficiency, unspecified (principal); N39.0 Urinary tract infection, site not specified; N76.1 Subacute and chronic vaginitis; R53.82 Chronic fatigue, unspecified; G89.29 Other chronic pain; E28.9 Ovarian dysfunction, unspecified; A69.20 Lyme disease, unspecified; E03.9 Hypothyroidism, unspecified; L65.9 Nonscarring hair loss, unspecified
CPT/HCPCS: 82627; 82670; 82784; 82785; 84144; 84439; 84443; 84481; 86376; 86800; 82626

== ENCOUNTER → 2024-11-22 | Outpatient (CLI) | payer MEDICARE, OTHER, SELFPAY ==
[2024-11-22 13:48] LABS: Vitamin B12 559 pg/mL (180-914); Vitamin D,25 Hydroxy 78.8 ng/mL (30-100)
[2024-11-22 13:54] LABS: CRP < 3.00 mg/L (0.0-3.0)
[2024-11-25 23:07] LABS: Vitamin B1, Thiamine 93.8 nmol/L (66.5-200.0)
== END | disposition home or self-care (01) ==
LOC: BIMLAB 08:16
PROVIDERS: PCP Internal Medicine; Referring Provider Nurse Practitioner Family; Visit Provider Nurse Practitioner Family
DX: N39.0 Urinary tract infection, site not specified (principal); D83.9 Common variable immunodeficiency, unspecified; N76.1 Subacute and chronic vaginitis; F32.A Depression, unspecified; R53.82 Chronic fatigue, unspecified; G89.29 Other chronic pain; E28.9 Ovarian dysfunction, unspecified; A69.20 Lyme disease, unspecified
CPT/HCPCS: 36415; 82306; 82607; 82746; 84207; 84425; 86140

== ENCOUNTER → 2024-11-27 | Outpatient (CLI) | payer MEDICARE, OTHER, SELFPAY | END | disposition home or self-care (01) | LOC: LABSPEC 10:11 | PROVIDERS: PCP Internal Medicine; Referring Provider Nurse Practitioner Family; Visit Provider Nurse Practitioner Family | DX: N39.0 Urinary tract infection, site not specified (principal); D83.9 Common variable immunodeficiency, unspecified; N76.1 Subacute and chronic vaginitis; F32.A Depression, unspecified; R53.82 Chronic fatigue, unspecified; G89.29 Other chronic pain; E28.9 Ovarian dysfunction, unspecified; A69.20 Lyme disease, unspecified ==

== ENCOUNTER → 2024-12-01 | Outpatient (CLI) | payer MEDICARE, OTHER, SELFPAY ==
[2024-12-01 14:22] LABS: Vitamin B12 516 pg/mL (180-914)
== END | disposition home or self-care (01) ==
LOC: LAB 12:29
PROVIDERS: PCP Internal Medicine; Referring Provider Nurse Practitioner Family; Visit Provider Nurse Practitioner Family
DX: D83.9 Common variable immunodeficiency, unspecified (principal); R79.83 Abnormal findings of blood amino-acid level; F32.A Depression, unspecified; R53.82 Chronic fatigue, unspecified; G89.29 Other chronic pain
CPT/HCPCS: 36415; 81291; 82607; 82746; 83090; 83921; 86340

== ENCOUNTER 2024-12-25 19:57 | Emergency (ER) | payer MEDICARE, OTHER, SELFPAY ==
[2024-12-25 19:59] VITALS: BP 134/82; PULSE 110; RESP 16; TEMP 36.6; O2SAT 97; BMI 33.3
--- NOTE | 2024-12-25 20:42 | ED.RN ---
PT STATES SHE WOULD RATHER FOLLOW UP WITH AN ENT DOCTOR THAN WAIT TO BE SEEN AT THIS TIME
== END 2024-12-25 20:30 | disposition left against medical advice (07) ==
LOC: ED 20:50
PROVIDERS: PCP Internal Medicine
DX: Z53.21 Procedure and treatment not carried out due to patient leaving prior to being seen by health care provider (principal)

== ENCOUNTER → 2025-01-08 | Outpatient (CLI) | payer MEDICARE, OTHER, SELFPAY ==
[2025-01-12 17:08] LABS: Methylmalonic Acid Bld 369 nmol/L (0-378)
== END | disposition home or self-care (01) ==
LOC: LAB 11:32
PROVIDERS: PCP Internal Medicine; Referring Provider Nurse Practitioner Family; Visit Provider Nurse Practitioner Family
DX: R79.83 Abnormal findings of blood amino-acid level (principal); D83.9 Common variable immunodeficiency, unspecified; F32.A Depression, unspecified; R53.82 Chronic fatigue, unspecified; G89.29 Other chronic pain
CPT/HCPCS: 83921

== ENCOUNTER 2025-03-09 15:14 | Outpatient (CLI) | payer MEDICARE, OTHER, SELFPAY ==
[2025-03-09 17:17] LABS: Ferritin 43 ng/mL (22-378); Free T3 3.1 pg/mL (2.18-3.98); Iron 132 ug/dL (50-170)
[2025-03-09 17:19] LABS: AST(SGOT) 34 U/L (<=31); Alanine Aminotransfer ALT/SGPT 34 U/L (<=34); Albumin, Serum 4.4 g/dL (3.4-4.8); Alkaline Phosphatase 72 U/L (35-104); Anion Gap 14 (5-15); BUN 14 mg/dL (4-19); BUN/Creat Ratio 17.7 RATIO (10-20); Calcium,Total 9.8 mg/dL (7.6-11.0); Carbon Dioxide 20.4 mmol/L (21.0-32.0); Chloride 103 mmol/L (98-108); Globulin 2.7 g/dL (2.2-4.2); Glucose 92 mg/dL (70-99); Potassium 4.4 mmol/L (3.3-5.1)
[2025-03-09 21:48] LABS: Hematocrit 41.9 % (37-47); Hemoglobin 14.4 g/dL (12.0-15.0); Mean Corp Hgb Conc 34.4 g/dL (32-36); Mean Corpuscular Volume 90.3 fL (81-99); Red Blood Count 4.64 M/mm3 (4.2-5.4); White Blood Count 5.4 K/mm3 (4.4-11.0)
[2025-03-09 23:24] LABS: RBC Distribution Width CV 12.9 % (11.6-14.6); RBC Distribution Width SD 41.8 fl (35.1-43.9)
[2025-03-09 23:25] LABS: Differential Indicated SCAN CRITERIA MET
[2025-03-09 23:26] LABS: Immature Granulocytes Count 0.020 X10^3/uL (0.0-0.0); Mean Platelet Vol. 10.6 fl (6.2-12.0); NRBC Flagged by Analyzer 0 % (0-5); POSITIVE COUNT YES
[2025-03-09 23:28] LABS: Platelet Count 228 K/mm3 (150-450)
[2025-03-11 09:08] LABS: PROGESTERONE 1.8 ng/mL (.)
== END 2025-03-09 23:59 | disposition home or self-care (01) ==
LOC: LABSPEC 15:28
PROVIDERS: PCP Internal Medicine; Referring Provider Nurse Practitioner Family; Visit Provider Nurse Practitioner Family
DX: N39.0 Urinary tract infection, site not specified (principal); D83.9 Common variable immunodeficiency, unspecified; F32.A Depression, unspecified; R53.82 Chronic fatigue, unspecified; N76.1 Subacute and chronic vaginitis; G89.29 Other chronic pain; E28.9 Ovarian dysfunction, unspecified; A69.20 Lyme disease, unspecified; E03.9 Hypothyroidism, unspecified
CPT/HCPCS: 80053; 82627; 82670; 82728; 83540; 84144; 84402; 84403; 84439; 84443; 84481; 85007; 85025; 85027; 82626